=== PATIENT | female | born 1965 ===

== ENCOUNTER → 2020-04-22 14:57 | Outpatient (BNVA) | payer OTHER, SELFPAY | PROVIDERS: Visit Provider Obstetrics & Gynecology | DX: Z76.89 Persons encountering health services in other specified circumstances (principal) ==

== ENCOUNTER 2020-06-15 16:10 | Outpatient (REF) | payer OTHER, SELFPAY ==
--- NOTE | 2020-06-15 | MM_ITS ---
EXAMINATION: MM SCREENING DIGITAL BREAST TOMOSYNTHESIS, BILATERAL CLINICAL INFORMATION: Screening. Asymptomatic. The lifetime risk of breast cancer based on the Tyrer-Cuzick Model is 7%. COMPARISON: Mammography: 02/05/2019, 03/16/2017, 03/10/2017 TECHNIQUE: Digital mammography is performed in craniocaudal and mediolateral oblique views along with computer-aided detection (CAD). Digital breast tomosynthesis is performed in implant-displaced craniocaudal and implant-displaced mediolateral oblique views along with computer-aided detection (CAD). Synthesized 2D images are generated from the tomosynthesis. Additional implant displaced left MLO view is provided. FINDINGS: There are scattered areas of fibroglandular density (ACR BI-RADS breast composition Category b). Breast tissue composition borders on predominantly fatty. The implant contours are smooth and similar to prior studies. There are no significant masses, abnormal calcifications, or other abnormalities. No significant changes. MM/MM tomosynthesis screening BI IMPRESSION: No mammographic evidence of malignancy. ASSESSMENT: BI-RADS 1: Negative RECOMMENDATION: Routine annual mammography screening. This patient's information was entered into a reminder system with a target due date for their next mammogram.
== END 2020-06-15 16:11 | disposition home or self-care (01) ==
LOC: HO.MAMMO 16:10
DX: Z12.31 Encounter for screening mammogram for malignant neoplasm of breast (principal)
CPT/HCPCS: 77063; 77067

== ENCOUNTER → 2020-07-20 15:28 | Outpatient (BNVA) | payer OTHER, SELFPAY | PROVIDERS: Visit Provider Advanced Practice Midwife ==

== ENCOUNTER 2020-09-09 14:12 | Emergency (ER) | payer OTHER, SELFPAY ==
--- NOTE | 2020-09-09 | ECG_ITS ---
Test Reason : HYPERTENSION Blood Pressure : / mmHG Vent. Rate : 090 BPM Atrial Rate : 090 BPM P-R Int : 170 ms QRS Dur : 064 ms QT Int : 352 ms P-R-T Axes : -08 -10 -09 degrees QTc Int : 430 ms Poor data quality Normal sinus rhythm Normal ECG When compared with ECG of 27-AUG-2017 09:55, Poor data quality in current ECG precludes serial comparison Referred By: Generic ED Physician Electronically Signed By:SUZY YOUNG MD
--- NOTE | ~2020-09-09 | XR_ITS ---
EXAMINATION: XR CHEST CLINICAL INFORMATION: Shortness of breath. COMPARISON: 10/28/2019 chest radiographs. TECHNIQUE: 2 views of the chest were obtained. FINDINGS: No significant abnormality is noted involving the heart, lungs, mediastinum, bony thorax or soft tissues. XR/XR chest 2V IMPRESSION: No acute cardiopulmonary process.
[2020-09-09 14:49] VITALS: BP 150/86; PULSE 100; RESP 18; TEMP 36.5; O2SAT 96; BMI 34.2
[2020-09-09 20:20] VITALS: BP 174/70; PULSE 81; RESP 18; TEMP 36.6; O2SAT 99
--- NOTE | 2020-09-09 21:16 | ED.GENADULT ---
HPI - General Adult General Chief complaint: General Medical Stated complaint: HYPERTENSION Time Seen by Provider: 09/09/20 21:15 Source: patient Mode of arrival: ambulatory Limitations: no limitations History of Present Illness HPI narrative: This is a 55-year-old female with fibromyalgia, hypertension and dyslipidemia was blood pressure medications were recently changed from lisinopril to amlodipine. Apparently, patient had developed a cough while on lisinopril. Today she states she has a headache and has had it for 3 days. Patient states she did seek with her PCP who sent her to the ED that her PCP was going to increase the amlodipine to from 5 mg to 10 mg and call in prescriptions for her. Patient states she has dizziness and shortness of breath but denies cough, chest pain, fevers, nausea, vomiting, diarrhea. Patient states she feels a little short of breath but she also has some increased anxiety due to some stuff going on at work. Patient states she did receive her 1st COVID vaccination this afternoon. MD complaint: elevated BP w/LEONARD Related Data Home Medications Medication Instructions Recorded Confirmed bupropion HCl (smoking deter) 150 150 mg PO BID 04/22/20 08/26/20 mg tablet,12 hr sustained-release(smoking deterrent) furosemide 20 mg tablet 20 mg PO DAILY 04/22/20 08/26/20 ibuprofen 600 mg tablet 600 mg PO BID 04/22/20 08/26/20 lorazepam 0.5 mg tablet 0.5 mg PO BID PRN 04/22/20 08/26/20 omeprazole 20 mg capsule,delayed 20 mg PO BID 04/22/20 08/26/20 release tramadol 50 mg tablet 50 mg PO Q6H PRN 04/22/20 08/26/20 zolpidem 5 mg tablet 5 mg PO BEDTIME PRN 08/26/20 08/26/20 Previous Rx's Medication Instructions Recorded clotrimazole-betamethasone 1 1 appl TOPICAL BID #45 g 07/20/20 %-0.05 % topical cream amlodipine 2.5 mg tablet 2.5 mg PO DAILY 30 Days #30 tab 08/26/20 atorvastatin 20 mg tablet 20 mg PO DAILY 90 Days #90 tab 09/03/20 amlodipine 10 mg tablet 10 mg PO DAILY 10 Days #10 tab 09/09/20 Allergies Allergy/AdvReac Type Severity Reaction Status Date / Time No Known Allergies Allergy Verified 08/26/20 10:53 Review of Systems Review of Systems: Yes all other systems are reviewed and are negative [facility] Past Medical History Medical History Anxiety Dyslipidemia Fibromyalgia GERD (gastroesophageal reflux disease) HTN (hypertension) Insomnia Surgical History History of bilateral tubal ligation History of breast implant History of hysterectomy History of lumpectomy of right breast Hx of abdominoplasty Family History Family History Mother Breast cancer Alzheimer's disease Family/Other Breast cancer Social History Social History Alcohol intake: current Alcohol intake frequency: a few times a month Alcohol type: other Smoking Status: Former smoker Advance Directives: No Sexual orientation: Straight/Heterosexual Gender identity: female Physical Exam Vital Signs: Vital Signs: Last Vital Signs Temp 98.4 F 09/09/20 22:45 Pulse 81 09/09/20 23:39 Resp 16 09/09/20 23:39 BP 105/57 L 09/09/20 23:39 Pulse Ox 98 09/09/20 23:39 Body Mass Index 34.2 Const: General: cooperative, healthy appearing, comfortable and no acute distress Nutritional Appearance: average body habitus Orientation/consciousness: patient oriented x3 HENMT: Head: Yes normal to inspection and Yes normocephalic Ears: hearing grossly normal bilaterally, external ears normal and TM's normal bilaterally Eyes: General: appearance normal, both eyes and all related structures Neck: Neck: Yes normal visual inspection and Yes full ROM Resp: Effort & Inspection: normal respiratory effort Auscultation: clear to auscultation bilaterally Cardio: Rate: regular rate Skin: General skin exam: no rashes or lesions noted Neuro: General: patient oriented x3 Extrem: General: Yes normal to inspection, Yes no pedal edema and Yes normal gait Course Course Course Narrative: This is a 55-year-old female with fibromyalgia, hypertension and dyslipidemia was blood pressure medications were recently changed from lisinopril to amlodipine. Apparently, patient had developed a cough while on lisinopril. Today she states she has a headache and has had it for 3 days. Will get labs, troponin, EKG and give patient Tylenol and bring down blood pressure to a safer level, gently. Likely discharge as long as all labs are WNL. Will get a chest x-ray as patient endorses shortness of breath though she does admit this could be due to anxiety. Blood pressure improving, systolic in the 120s to 130s. Elevated blood pressure is likely related to patient's anxiety and needing a med adjustment as patient's blood pressure improved almost immediately when the nurse was in the room w/the medication. Patient is still endorsing headache, will give migraine cocktail and reassess in a little while. Likely discharge home. 12:27am patient reports feeling better, dizziness has resolved, headache has resolved, BP WNL, will discharge patient home. Medical Decision Making Lab Data Result diagrams: 09/09/20 22:14 09/09/20 22:14 Labs: Lab Results 09/09/20 09/09/20 09/09/20 Range/Units 22:14 22:14 22:14 WBC 10.1 (4.8-10.8) X10*3/uL RBC 4.24 (4.20-5.50) X10*6/uL Hgb 13.2 (12.0-16.0) g/dl Hct 39.4 (37-47) % MCV 92.9 (80-98) fL MCH 31.1 (27.0-33.0) pg MCHC 33.5 (31.0-35.0) g/dl RDW 11.9 (11.0-16.0) % Plt Count 282 (160-400) X10*3/uL MPV 10.8 (9.4-12.3) fL Immature Gran % (Auto) 0.1 (0.0-0.4) % Neut % (Auto) 51.9 (45-73) % Lymph % (Auto) 39.9 (20-40) % [place] % (Auto) 7.1 (2-11) % Eos % (Auto) 0.8 (0-4) % Baso % (Auto) 0.2 (0-2) % Lymph # (Auto) 4.0 (1.2-4.9) X10*3/uL [place] # (Auto) 0.7 (0.1-1.2) X10*3/uL Eos # (Auto) 0.1 (0.0-0.4) X10*3/uL Baso # (Auto) 0.0 (0.0-0.2) X10*3/uL Abs Immat Gran (auto) 0.01 (0.00-0.03) X10*3/uL Absolute Neuts (auto) 5.2 (2.0-8.3) X10*3/uL Absolute Nucleated RBC 0.000 (0.0-0.012) X10*3/uL Nucleated RBC % (auto) 0.0 (0.0-0.2) /100WBC Sodium 141 (135-145) mmol/L Potassium 4.2 (3.3-5.1) mmol/L Chloride 105 (96-108) mmol/L Carbon Dioxide 24 (22-29) mmol/L Anion Gap 16 (12-20) BUN 16 (9-16) mg/dL Creatinine 0.76 (0.5-1.4) mg/dL Estim Creat Clear Calc 83.5 Estimated GFR > 60 Random Glucose 92 (60-115) mg/dL Calcium 9.1 (8.4-10.2) mg/dL Troponin I High Sens < 3.5 (<3.5-17.0) ng/L Discharge Plan Discharge Clinical Impression: Elevated blood pressure reading with diagnosis of hypertension Patient Disposition: Home, Self-Care Instructions: Hypertension (ED) Additional Instructions: Please be sure to start taking her new dose of 10 mg amlodipine that your PCP prescribed to you daily starting tomorrow. Please also watch her salt intake as increased salt intake can lead to increased blood pressure. If your headache or dizziness returns and you cannot control it with Motrin and ibuprofen, please seek medical attention. Prescriptions: No Action atorvastatin 20 mg tablet 20 mg PO DAILY 90 Days Qty: 90 RF: 3 amlodipine 10 mg tablet 10 mg PO DAILY 10 Days Qty: 10 RF: 0 zolpidem 5 mg tablet 5 mg PO BEDTIME PRNRF: 0 amlodipine 2.5 mg tablet 2.5 mg PO DAILY 30 Days Qty: 30 RF: 3 clotrimazole-betamethasone 1-0.05 % cream 1 appl topical BID Qty: 45 RF: 0 tramadol 50 mg tablet 50 mg PO Q6H PRNRF: 0 ibuprofen 600 mg tablet 600 mg PO BID RF: 0 omeprazole 20 mg capsule,delayed release(DR/EC) 20 mg PO BID RF: 0 lorazepam 0.5 mg tablet 0.5 mg PO BID PRNRF: 0 bupropion HCl (smoking deter) 150 mg tablet extended release 12 hr 150 mg PO BID RF: 0 furosemide 20 mg tablet 20 mg PO DAILY RF: 0
[2020-09-09] MEDS: Acetaminophen 325 MG TABLET 650 MG PO (22:14)
[2020-09-09 22:15] VITALS: BP 174/70; PULSE 83
[2020-09-09] MEDS: hydrALAZINE HCl 20 MG/ML VIAL 5 MG IVPUSH (22:15)
[2020-09-09 22:23] LABS: MANUAL DIFF FLAG NO
[2020-09-09 22:32] LABS: Basophils Percent Auto 0.2 % (0-2); Eosinophils Absolute Auto 0.1 X10*3/uL (0.0-0.4); Eosinophils Percent Auto 0.8 % (0-4); Hematocrit 39.4 % (37-47); Hemoglobin 13.2 g/dl (12.0-16.0); Imm Gran Abs Auto 0.01 X10*3/uL (0.00-0.03); Imm Gran Pct Auto 0.1 % (0.0-0.4); Lymphocytes Percent Auto 39.9 % (20-40); Mean Corpuscular HGB Conc 33.5 g/dl (31.0-35.0); Mean Corpuscular Hemoglobin 31.1 pg (27.0-33.0); Mean Corpuscular Volume 92.9 fL (80-98); Mean Platelet Volume 10.8 fL (9.4-12.3); Monocytes Absolute Auto 0.7 X10*3/uL (0.1-1.2); Monocytes Percent Auto 7.1 % (2-11); Neutrophils Absolute Auto 5.2 X10*3/uL (2.0-8.3); Neutrophils Percent Auto 51.9 % (45-73); Platelet Count 282 X10*3/uL (160-400); Red Blood Count 4.24 X10*6/uL (4.20-5.50); Red Cell Distribution Width 11.9 % (11.0-16.0); White Blood Count 10.1 X10*3/uL (4.8-10.8)
[2020-09-09 22:45] VITALS: BP 119/58; PULSE 81; RESP 12; TEMP 36.9; O2SAT 98
[2020-09-09 22:51] LABS: Anion Gap 16 (12-20); Blood Urea Nitrogen 16 mg/dL (9-16); Calcium 9.1 mg/dL (8.4-10.2); Carbon Dioxide 24 mmol/L (22-29); Chloride 105 mmol/L (96-108); Creatinine Clr Calc Pharmacy 83.5; Estimated Glomerular Filt Rate > 60; Glucose Random 92 mg/dL (60-115); Potassium 4.2 mmol/L (3.3-5.1); Sodium 141 mmol/L (135-145)
[2020-09-09 22:54] LABS: Troponin-I High Sensitivity < 3.5 ng/L (<3.5-17.0)
[2020-09-09] MEDS: Metoclopramide HCl 10 MG/2 ML VIAL IVPUSH (23:07)
[2020-09-09] MEDS: Ketorolac Tromethamine 30 MG/ML VIAL IVPUSH (23:07)
[2020-09-09] MEDS: diphenhydrAMINE HCL 50 MG/ML VIAL 25 MG IVPUSH (23:07)
[2020-09-09 23:39] VITALS: BP 105/57; PULSE 81; RESP 16; O2SAT 98
[2020-09-09] MEDS: Meclizine HCl 25 MG TABLET PO (23:41)
== END 2020-09-10 01:15 | disposition home or self-care (01) ==
PROVIDERS: Physician Assistant; Emergency Provider Internal Medicine; PCP Internal Medicine
DX: R51.9 Headache, unspecified (principal); I10 Essential (primary) hypertension; Z79.899 Other long term (current) drug therapy
CPT/HCPCS: 36415; 71046; 80048; 84484; 85025; 93005; 96374; 96375; 99284; J1200; J1885; J2765

== ENCOUNTER 2020-10-20 11:25 | Outpatient (REF) | payer OTHER, SELFPAY ==
--- NOTE | ~2020-10-20 | US_ITS ---
EXAMINATION: US VENOUS ULTRASOUND WITH DOPPLER LOWER EXTREMITY, LEFT CLINICAL INFORMATION: Left lower extremity pain. Assess for occult DVT COMPARISON: Left lower extremity venous ultrasound with Doppler 10/19/2015 TECHNIQUE: Ultrasound of the deep veins is performed from the hip to the calf with compression sonography and color and pulse Doppler assessment. Spectral analysis with color-flow imaging is performed. FINDINGS: There is normal venous compression and respiratory variation and augmented flow. The visualized common femoral vein, superficial femoral vein, profunda femoral vein, popliteal vein, and the trifurcation region shows no evidence of deep venous thrombosis. There is no significant popliteal fossa cyst. US/US venous duplex LE LT IMPRESSION: No DVT demonstrated in the left lower extremity.
== END 2020-10-20 11:26 | disposition home or self-care (01) ==
LOC: HO.US 11:25
PROVIDERS: PCP Internal Medicine; Visit Provider Internal Medicine
DX: M79.662 Pain in left lower leg (principal); M79.89 Other specified soft tissue disorders
CPT/HCPCS: 93971

== ENCOUNTER 2020-10-23 23:40 | Emergency (ER) | payer OTHER, SELFPAY ==
[2020-10-23 23:55] VITALS: BP 138/74; PULSE 88; RESP 18; TEMP 36.8; O2SAT 98; BMI 34.9
[2020-10-24] VITALS: BP 138/74; PULSE 88; RESP 18; TEMP 36.8; O2SAT 98
--- NOTE | 2020-10-24 | ECG_ITS ---
Test Reason : chest pain Blood Pressure : / mmHG Vent. Rate : 092 BPM Atrial Rate : 092 BPM P-R Int : 218 ms QRS Dur : 074 ms QT Int : 346 ms P-R-T Axes : 032 009 041 degrees QTc Int : 427 ms Sinus rhythm with 1st degree A-V block Otherwise normal ECG When compared with ECG of 09-SEP-2020 14:57, [place] interval has increased Nonspecific T wave abnormality has replaced inverted T waves in Inferior leads Referred By: Generic ED Physician Electronically Signed By:SUZY YOUNG MD
[2020-10-24 00:09] VITALS: PULSE 120
[2020-10-24 00:28] LABS: Glucose Urine UA NEG (NEG); Leukocyte Esterase Urine NEG (NEG); Nitrite Urine NEG (NEG); PH 5.5 (5.0-8.0); Specific Gravity - Urine >= 1.030 (1.005-1.025); Urine Blood 3+ (NEG); Urine Ketones NEG (NEG); Urine Protein NEG (NEG-TRACE)
[2020-10-24 00:34] LABS: Appearance Urine CLEAR; Color Urine YELLOW
[2020-10-24 00:46] LABS: Bacteria Urine TRACE /LPF; Mucus Urine TRACE /LPF; Squamous Epithelial Cell Urine 1+ /LPF
--- NOTE | 2020-10-24 01:02 | ED_ITS ---
HPI - Chest Pain General Chief Complaint: Chest Pain Stated Complaint: Weakness Time Seen by Provider: 10/23/20 23:54 Source: patient Mode of arrival: ambulatory History of Present Illness HPI narrative: 55-year-old female with complaints left-sided chest discomfort primarily in her left shoulder with occasional numbness/tingling into the distal extremity. Otherwise, she denies any fever, chills, GI symptoms, symptoms. She states that she recently was evaluated for lower extremity edema with a negative venous duplex. Related Data Home Medications Medication Instructions Recorded Confirmed bupropion HCl (smoking deter) 150 150 mg PO BID 04/22/20 10/20/20 mg tablet,12 hr sustained-release(smoking deterrent) furosemide 20 mg tablet 20 mg PO DAILY 04/22/20 10/20/20 ibuprofen 600 mg tablet 600 mg PO BID 04/22/20 10/20/20 omeprazole 20 mg capsule,delayed 20 mg PO BID 04/22/20 10/20/20 release tramadol 50 mg tablet 50 mg PO Q6H PRN 04/22/20 08/26/20 zolpidem 5 mg tablet 5 mg PO BEDTIME PRN 08/26/20 10/20/20 Previous Rx's Medication Instructions Recorded clotrimazole-betamethasone 1 1 appl TOPICAL BID #45 g 07/20/20 %-0.05 % topical cream atorvastatin 20 mg tablet 20 mg PO DAILY 90 Days #90 tab 09/03/20 losartan 25 mg tablet 25 mg PO DAILY 90 Days #90 tab 09/13/20 sumatriptan succinate 50 mg tablet 50 mg PO Q2-4H PRN 30 Days #9 tab 09/13/20 amlodipine 10 mg tablet 10 mg PO DAILY #10 tab 09/26/20 lorazepam 0.5 mg tablet 0.5 mg PO BID PRN 30 Days #60 tab 10/07/20 Allergies Allergy/AdvReac Type Severity Reaction Status Date / Time No Known Allergies Allergy Verified 08/26/20 10:53 Review of Systems Review of Systems: Pertinent positives and negatives as stated in HPI 10 point review of systems is otherwise negative. PMFSH Past Medical History Source: nursing notes reviewed Medical History Anxiety Dyslipidemia Fibromyalgia GERD (gastroesophageal reflux disease) Hospital discharge follow-up HTN (hypertension) Insomnia Pain and swelling of left lower leg Surgical History History of bilateral tubal ligation History of breast implant History of hysterectomy History of lumpectomy of right breast Hx of abdominoplasty Family History Family History Mother Breast cancer Alzheimer's disease Family/Other Breast cancer Social History Social History Alcohol intake: never Smoking Status: Never smoker Advance Directives: No Sexual orientation: Straight/Heterosexual Gender identity: female Physical Exam Vital Signs: Vital Signs: Last Vital Signs Temp 98.2 F 10/24/20 00:00 Pulse 88 10/24/20 00:00 Resp 18 10/24/20 00:00 BP 138/74 10/24/20 00:00 Pulse Ox 98 10/24/20 00:00 Body Mass Index 34.9 VITAL SIGNS: Reviewed. GENERAL: Well developed, well nourished, in no acute distress. HEAD: Normocephalic/atraumatic, EYES: PERRLA, EOMI OROPHARYNX: no oral lesions noted, posterior pharynx clear NECK: Supple, no adenopathy LUNGS: Normal breath sounds. No adventitious sounds or accessory muscle use. SpO2<98> CARDIOVASCULAR: Regular rate and rhythm without noted murmurs ABDOMEN: Soft, non-tender, non-distended with bowel sounds. Left upper extremity: Neurovascularly intact, capillary refill less than 3 seconds, no deformity noted at the shoulder and there is full range of motion at the shoulder, elbow, wrist EXTREMITIES: No edema. NEUROLOGIC: Alert and oriented x 4. Strength and sensation to light touch were grossly intact x 4. Course Course Course Narrative: 55-year-old female with history and clinical presentation most consistent with musculoskeletal complaints in etiology, however will rule out cardiopulmonary etiologies. On review of all investigations there are no acute findings to suggest pneumonia, cardiac ischemia, or infectious etiology. All results and findings were discussed with patient at bedside and she was discharged home in stable condition. MDM - Chest Pain Lab Data Result diagrams: 10/24/20 01:54 10/24/20 01:54 Labs: Lab Results 10/24/20 10/24/20 10/24/20 Range/Units 00:20 01:54 01:54 WBC 8.9 (4.8-10.8) X10*3/uL RBC 3.79 L (4.20-5.50) X10*6/uL Hgb 11.9 L (12.0-16.0) g/dl Hct 36.0 L (37-47) % MCV 95.0 (80-98) fL MCH 31.4 (27.0-33.0) pg MCHC 33.1 (31.0-35.0) g/dl RDW 12.3 (11.0-16.0) % Plt Count 282 (160-400) X10*3/uL MPV 10.3 (9.4-12.3) fL Immature Gran % (Auto) 0.2 (0.0-0.4) % Neut % (Auto) 48.6 (45-73) % Lymph % (Auto) 40.8 H (20-40) % [place] % (Auto) 7.9 (2-11) % Eos % (Auto) 2.2 (0-4) % Baso % (Auto) 0.3 (0-2) % Lymph # (Auto) 3.7 (1.2-4.9) X10*3/uL [place] # (Auto) 0.7 (0.1-1.2) X10*3/uL Eos # (Auto) 0.2 (0.0-0.4) X10*3/uL Baso # (Auto) 0.0 (0.0-0.2) X10*3/uL Abs Immat Gran (auto) 0.02 (0.00-0.03) X10*3/uL Absolute Neuts (auto) 4.3 (2.0-8.3) X10*3/uL Absolute Nucleated RBC 0.000 (0.0-0.012) X10*3/uL Nucleated RBC % (auto) 0.0 (0.0-0.2) /100WBC Hold Blue Top Sodium 143 (135-145) mmol/L Potassium 3.9 (3.3-5.1) mmol/L Chloride 106 (96-108) mmol/L Carbon Dioxide 28 (22-29) mmol/L Anion Gap 13 (12-20) BUN 20 H (9-16) mg/dL Creatinine 0.80 (0.5-1.4) mg/dL Estim Creat Clear Calc 80.2 Estimated GFR > 60 Random Glucose 118 H (60-115) mg/dL Calcium 9.4 (8.4-10.2) mg/dL Total Bilirubin 0.3 (0.0-1.0) mg/dL AST 14 (5-31) U/L ALT 18 (0-31) U/L Alkaline Phosphatase 101 (39-117) U/L Troponin I High Sens (<3.5-17.0) ng/L Total Protein 6.5 (6.5-8.0) g/dL Albumin 4.1 (3.5-5.0) g/dL Urine Color YELLOW Urine Appearance CLEAR Urine pH 5.5 (5.0-8.0) Ur Specific [place] >= 1.030 H (1.005-1.025) Urine Protein NEG (NEG-TRACE) MG/DL Urine Glucose (UA) NEG (NEG) MG/DL Urine Ketones NEG (NEG) MG/DL Urine Blood 3+ H (NEG) Urine Nitrite NEG (NEG) Ur Leukocyte Esterase NEG (NEG) Urine RBC 5-9 H (0) /HPF Urine WBC 1-4 (0-4) /HPF Ur Squamous Epith Cells 1+ /LPF Urine Bacteria TRACE /LPF Urine Mucus TRACE /LPF 10/24/20 10/24/20 Range/Units 01:54 01:54 WBC (4.8-10.8) X10*3/uL RBC (4.20-5.50) X10*6/uL Hgb (12.0-16.0) g/dl Hct (37-47) % MCV (80-98) fL MCH (27.0-33.0) pg MCHC (31.0-35.0) g/dl RDW (11.0-16.0) % Plt Count (160-400) X10*3/uL MPV (9.4-12.3) fL Immature Gran % (Auto) (0.0-0.4) % Neut % (Auto) (45-73) % Lymph % (Auto) (20-40) % [place] % (Auto) (2-11) % Eos % (Auto) (0-4) % Baso % (Auto) (0-2) % Lymph # (Auto) (1.2-4.9) X10*3/uL [place] # (Auto) (0.1-1.2) X10*3/uL Eos # (Auto) (0.0-0.4) X10*3/uL Baso # (Auto) (0.0-0.2) X10*3/uL Abs Immat Gran (auto) (0.00-0.03) X10*3/uL Absolute Neuts (auto) (2.0-8.3) X10*3/uL Absolute Nucleated RBC (0.0-0.012) X10*3/uL Nucleated RBC % (auto) (0.0-0.2) /100WBC Hold Blue Top SEE NOTE Sodium (135-145) mmol/L Potassium (3.3-5.1) mmol/L Chloride (96-108) mmol/L Carbon Dioxide (22-29) mmol/L Anion Gap (12-20) BUN (9-16) mg/dL Creatinine (0.5-1.4) mg/dL Estim Creat Clear Calc Estimated GFR Random Glucose (60-115) mg/dL Calcium (8.4-10.2) mg/dL Total Bilirubin (0.0-1.0) mg/dL AST (5-31) U/L ALT (0-31) U/L Alkaline Phosphatase (39-117) U/L Troponin I High Sens < 3.5 (<3.5-17.0) ng/L Total Protein (6.5-8.0) g/dL Albumin (3.5-5.0) g/dL Urine Color Urine Appearance Urine pH (5.0-8.0) Ur Specific [place] (1.005-1.025) Urine Protein (NEG-TRACE) MG/DL Urine Glucose (UA) (NEG) MG/DL Urine Ketones (NEG) MG/DL Urine Blood (NEG) Urine Nitrite (NEG) Ur Leukocyte Esterase (NEG) Urine RBC (0) /HPF Urine WBC (0-4) /HPF Ur Squamous Epith Cells /LPF Urine Bacteria /LPF Urine Mucus /LPF Discharge Plan Discharge Clinical Impression: Left shoulder pain Patient Disposition: Home, Self-Care Instructions: Shoulder Pain (ED) Additional Instructions: Resume all home medications as prescribed. Utilize [id number] Tylenol/ibuprofen as needed for left shoulder discomfort and follow-up with your primary care provider for re-evaluation and possible referral for physical therapy. Return to the emergency department if you develop any acute worsening of your symptoms. Prescriptions: No Action atorvastatin 20 mg tablet 20 mg PO DAILY 90 Days Qty: 90 RF: 3 losartan 25 mg tablet 25 mg PO DAILY 90 Days Qty: 90 RF: 0 sumatriptan succinate 50 mg tablet 50 mg PO Q2-4H PRN (Reason: migraine headache) 30 Days Qty: 9 RF: 0 amlodipine 10 mg tablet 10 mg PO DAILY Qty: 10 RF: 6 lorazepam 0.5 mg tablet 0.5 mg PO BID PRN (Reason: anxiety) 30 Days Qty: 60 RF: 0 zolpidem 5 mg tablet 5 mg PO BEDTIME PRNRF: 0 clotrimazole-betamethasone 1-0.05 % cream 1 appl topical BID Qty: 45 RF: 0 tramadol 50 mg tablet 50 mg PO Q6H PRNRF: 0 ibuprofen 600 mg tablet 600 mg PO BID RF: 0 omeprazole 20 mg capsule,delayed release(DR/EC) 20 mg PO BID RF: 0 bupropion HCl (smoking deter) 150 mg tablet extended release 12 hr 150 mg PO BID RF: 0 furosemide 20 mg tablet 20 mg PO DAILY RF: 0 Referrals: Itzel Coles MD [Primary Care Provider] - 2 days
[2020-10-24 02:00] LABS: MANUAL DIFF FLAG NO
[2020-10-24 02:02] LABS: Basophils Percent Auto 0.3 % (0-2); Eosinophils Absolute Auto 0.2 X10*3/uL (0.0-0.4); Eosinophils Percent Auto 2.2 % (0-4); Hemoglobin 11.9 g/dl (12.0-16.0); Imm Gran Abs Auto 0.02 X10*3/uL (0.00-0.03); Imm Gran Pct Auto 0.2 % (0.0-0.4); Lymphocytes Absolute Auto 3.7 X10*3/uL (1.2-4.9); Lymphocytes Percent Auto 40.8 % (20-40); Mean Corpuscular HGB Conc 33.1 g/dl (31.0-35.0); Mean Corpuscular Hemoglobin 31.4 pg (27.0-33.0); Mean Platelet Volume 10.3 fL (9.4-12.3); Monocytes Absolute Auto 0.7 X10*3/uL (0.1-1.2); Monocytes Percent Auto 7.9 % (2-11); Neutrophils Absolute Auto 4.3 X10*3/uL (2.0-8.3); Neutrophils Percent Auto 48.6 % (45-73); Platelet Count 282 X10*3/uL (160-400); Red Blood Count 3.79 X10*6/uL (4.20-5.50); Red Cell Distribution Width 12.3 % (11.0-16.0); White Blood Count 8.9 X10*3/uL (4.8-10.8)
[2020-10-24 02:33] LABS: Alanine Aminotransferase 18 U/L (0-31); Albumin Level 4.1 g/dL (3.5-5.0); Alkaline Phosphatase 101 U/L (39-117); Anion Gap 13 (12-20); Aspartate Amino Transferase 14 U/L (5-31); Bilirubin Total 0.3 mg/dL (0.0-1.0); Blood Urea Nitrogen 20 mg/dL (9-16); Calcium 9.4 mg/dL (8.4-10.2); Carbon Dioxide 28 mmol/L (22-29); Chloride 106 mmol/L (96-108); Creatinine Clr Calc Pharmacy 80.2; Estimated Glomerular Filt Rate > 60; Glucose Random 118 mg/dL (60-115); Potassium 3.9 mmol/L (3.3-5.1); Sodium 143 mmol/L (135-145); Total Protein 6.5 g/dL (6.5-8.0)
[2020-10-24 02:36] LABS: Troponin-I High Sensitivity < 3.5 ng/L (<3.5-17.0)
== END 2020-10-24 03:04 | disposition home or self-care (01) ==
PROVIDERS: Emergency Provider Student in an Organized Health Care Education/Training Program; PCP Internal Medicine
DX: M25.512 Pain in left shoulder (principal); R07.9 Chest pain, unspecified; I10 Essential (primary) hypertension; E78.5 Hyperlipidemia, unspecified; Z79.02 Long term (current) use of antithrombotics/antiplatelets; Z79.899 Other long term (current) drug therapy
CPT/HCPCS: 36415; 80053; 81001; 84484; 85025; 93005; 99284

== ENCOUNTER 2020-11-22 12:22 | Outpatient (REF) | payer OTHER, SELFPAY ==
--- NOTE | ~2020-11-22 | XR_ITS ---
EXAMINATION: XR KNEE, LEFT CLINICAL INFORMATION: Left knee pain COMPARISON: There are no prior studies for comparison. TECHNIQUE: Three views of the left knee. FINDINGS: Mineralization is normal. There is no fracture or dislocation. There is moderate to severe joint space narrowing in the medial compartment of the knee with minimal associated arthritic change. There is mild degenerative arthritis in the patellofemoral compartment. There is no evidence of joint effusion. There are small rounded ossicles projected at the anterior intercondylar notch and posteriorly which could represent intra-articular loose bodies. XR/XR knee LT 3V IMPRESSION: Joint space narrowing in the medial compartment with arthritic change in the medial and patellofemoral compartments. Osseous intra-articular loose bodies cannot be excluded.
== END 2020-11-22 12:23 | disposition home or self-care (01) ==
LOC: HO.XRAY 12:22
PROVIDERS: PCP Internal Medicine; Visit Provider Internal Medicine
DX: M25.562 Pain in left knee (principal)
CPT/HCPCS: 73562

== ENCOUNTER 2020-12-10 09:36 | Outpatient (REF) | payer OTHER, SELFPAY ==
--- NOTE | ~2020-12-10 | CT_ITS ---
EXAMINATION: CT HEAD WITHOUT CONTRAST CLINICAL INFORMATION: Head injury. COMPARISON: None TECHNIQUE: Contiguous axial imaging was performed from the skull base to vertex without intravenous administration of contrast. This CT examination was performed using dose optimization techniques as appropriate, variously including the following: *Automated exposure control *Adjustment of mA and/or kV according to patient size (this includes techniques or standardized protocols for targeted exams where dose is matched to indication/reason for exam; i.e. extremities or head) *Use of iterative reconstruction technique DLP: 697 mGy-cm FINDINGS: There is no evidence of acute intracranial hemorrhage or territorial infarction. No abnormal mass effect or midline shift is seen. Reyes to white matter differentiation is well preserved. No extra-axial fluid collections are identified. The ventricles are normal in size. There is no abnormal attenuation within the brain parenchyma. The osseous structures and soft tissues are normal. The mastoid air cells and visualized portions of the paranasal sinuses are well aerated. CT/CT head/brain wo con IMPRESSION: No acute intracranial process seen.
== END 2020-12-10 09:37 | disposition home or self-care (01) ==
LOC: HO.CT 09:36
PROVIDERS: PCP Internal Medicine; Visit Provider Internal Medicine
DX: S09.90XA Unspecified injury of head, initial encounter (principal)
CPT/HCPCS: 70450

== ENCOUNTER 2021-01-15 08:16 | Outpatient (REF) | payer OTHER, SELFPAY ==
--- NOTE | ~2021-01-15 | XR_ITS ---
EXAMINATION: XR CHEST CLINICAL INFORMATION: Cough. COMPARISON: Chest radiograph dated 09/09/2020 TECHNIQUE: Two views of the chest were obtained. FINDINGS: The lungs are clear. The cardiomediastinal silhouette is normal in size. There is no pleural effusion or pneumothorax. No acute osseous abnormality. XR/XR chest 2V IMPRESSION: No acute cardiopulmonary findings.
[2021-01-15 10:23] LABS: Alanine Aminotransferase 20 U/L (0-31); Albumin Level 4.3 g/dL (3.5-5.0); Alkaline Phosphatase 80 U/L (39-117); Anion Gap 11 (12-20); Aspartate Amino Transferase 17 U/L (5-31); Bilirubin Total 0.4 mg/dL (0.0-1.0); Blood Urea Nitrogen 18 mg/dL (9-16); Calcium 9.6 mg/dL (8.4-10.2); Carbon Dioxide 26 mmol/L (22-29); Chloride 108 mmol/L (96-108); Cholesterol 205 mg/dL; Estimated Glomerular Filt Rate > 60; Glucose Fasting 109 mg/dL (60-99); HDL Cholesterol 57 mg/dL; LDL Cholesterol Calculated 125 mg/dl; Potassium 4.4 mmol/L (3.3-5.1); Sodium 141 mmol/L (135-145); Triglycerides 117 mg/dL
[2021-01-20 10:41] LABS: Vitamin D 25-OH, D2 <4 ng/mL; Vitamin D 25-OH, D3 18 ng/mL; Vitamin D 25-OH, Total 18 ng/mL (30-100)
== END 2021-01-15 08:17 | disposition home or self-care (01) ==
LOC: HO.XRAY 08:16
PROVIDERS: PCP Internal Medicine; Referring Provider Internal Medicine; Visit Provider Nurse Practitioner Family
DX: I10 Essential (primary) hypertension (principal); E78.5 Hyperlipidemia, unspecified; R05 Cough; E55.9 Vitamin D deficiency, unspecified
CPT/HCPCS: 36415; 71046; 80053; 80061; 82306

== ENCOUNTER 2021-05-03 07:16 | Outpatient (REF) | payer OTHER, SELFPAY | END 2021-05-03 07:17 | disposition home or self-care (01) | LOC: HO.HOSX 07:16 | PROVIDERS: Visit Provider Physician Assistant | DX: Z13.89 Encounter for screening for other disorder (principal) ==

== ENCOUNTER 2021-05-25 14:17 | Outpatient (REF) | payer OTHER, SELFPAY ==
[2021-05-25 15:38] LABS: C Reactive Protein 0.17 mg/dL (< or = 0.50); Rheumatoid Factor < 15.0 IU/mL (<15.0)
[2021-05-25 16:10] LABS: Erythrocyte Sedimentation Rate 10 MM/HR (0-20)
[2021-05-27 15:11] LABS: Cyclic Citrullinated Peptide <16 UNITS
== END 2021-05-25 14:18 | disposition home or self-care (01) ==
LOC: HO.LAB 14:17
PROVIDERS: PCP Internal Medicine; Visit Provider Nurse Practitioner Family
DX: M79.641 Pain in right hand (principal); M79.642 Pain in left hand; R20.0 Anesthesia of skin; R20.2 Paresthesia of skin
CPT/HCPCS: 36415; 82550; 85652; 86140; 86200; 86431

== ENCOUNTER 2021-07-09 07:57 | Outpatient (REF) | payer OTHER, SELFPAY ==
--- NOTE | ~2021-07-09 | MM_ITS ---
EXAMINATION: MM SCREENING DIGITAL BREAST TOMOSYNTHESIS, BILATERAL CLINICAL INFORMATION: Screening. Asymptomatic. Family history premenopausal breast cancer, mother (40s), cousin(40s). The lifetime risk of breast cancer based on the Tyrer-Cuzick Model is 15%. COMPARISON: Mammography: 06/15/2020, 02/05/2019, 03/16/2017, 03/10/2017 TECHNIQUE: Digital mammography is performed in craniocaudal and mediolateral oblique views along with computer-aided detection (CAD). Digital breast tomosynthesis is performed in implant-displaced craniocaudal and implant-displaced mediolateral oblique views along with computer-aided detection (CAD). Synthesized 2D images are generated from the tomosynthesis. FINDINGS: There are scattered areas of fibroglandular density (ACR BI-RADS breast composition Category b). There are no significant masses, abnormal calcifications, or other abnormalities. There are bilateral implants. The implant margins are smooth and similar to prior studies. MM/MM tomosynthesis screen imp BI IMPRESSION: No mammographic evidence of malignancy. ASSESSMENT: BI-RADS 1: Negative RECOMMENDATION: Routine annual mammography screening. This patient's information was entered into a reminder system with a target due date for their next mammogram.
== END 2021-07-09 07:58 | disposition home or self-care (01) ==
LOC: HO.MAMMO 07:57
PROVIDERS: PCP Internal Medicine; Visit Provider Internal Medicine
DX: Z12.31 Encounter for screening mammogram for malignant neoplasm of breast (principal)
CPT/HCPCS: 77063; 77067

== ENCOUNTER 2021-07-11 07:05 | Outpatient (REF) | payer OTHER, SELFPAY | END 2021-07-11 07:06 | disposition home or self-care (01) | LOC: HO.HOSX 07:05 | PROVIDERS: Visit Provider Physician Assistant | DX: Z13.89 Encounter for screening for other disorder (principal) ==

== ENCOUNTER → 2021-08-12 07:53 | Outpatient (REF) | payer OTHER, SELFPAY ==
--- NOTE | 2021-08-12 07:56 | CA_ITS ---
Acquisition Time: 2021-08-12 09:02:10 Total Exercise Time: 00:06:32 Test Indications: HTN Medications: SEE H Protocol: AKIN Max HR: 139 BPM 85% of Pred: 163 BPM Max BP: 148/060 mmHG Max Work Load: 7.8 METS Exercise stress test with exercise 6 min 32 sec of Akin protocol, with mild sob, no chest discomfort or palpitation, without arrythmia, with normotensive response to exercise, without EKG changes meeting criteria for ischemia. Test reviewed with Dr Pak. Referred By: Daphnie Guidry Overread By: BONIFACIO HOWARD
== END ==
LOC: HO.CARD 07:53
PROVIDERS: PCP Internal Medicine; Visit Provider Nurse Practitioner Family
DX: R00.2 Palpitations (principal); I10 Essential (primary) hypertension
CPT/HCPCS: 93017

== ENCOUNTER → 2021-08-30 11:14 | Outpatient (REF) | payer OTHER, SELFPAY ==
--- NOTE | 2021-08-30 11:20 | ECG_ITS ---
Test Reason : CP Blood Pressure : / mmHG Vent. Rate : 091 BPM Atrial Rate : 091 BPM P-R Int : 176 ms QRS Dur : 072 ms QT Int : 352 ms P-R-T Axes : 046 012 033 degrees QTc Int : 432 ms Normal sinus rhythm Normal ECG When compared with ECG of 24-OCT-2020 00:03, VT interval has decreased Referred By: Itzel Cade Electronically Signed By:Elkin Pak
== END ==
LOC: HO.CARD 11:14
PROVIDERS: PCP Internal Medicine; Visit Provider Internal Medicine
DX: R07.9 Chest pain, unspecified (principal)
CPT/HCPCS: 93005

== ENCOUNTER 2021-09-16 07:50 | Outpatient (REF) | payer OTHER, SELFPAY ==
[2021-09-16 08:42] LABS: Alanine Aminotransferase 23 U/L (0-31); Albumin Level 4.5 g/dL (3.5-5.0); Alkaline Phosphatase 94 U/L (39-117); Anion Gap 14 (12-20); Aspartate Amino Transferase 18 U/L (5-31); Bilirubin Total 0.4 mg/dL (0.0-1.0); Blood Urea Nitrogen 26 mg/dL (9-16); Calcium 9.7 mg/dL (8.4-10.2); Carbon Dioxide 25 mmol/L (22-29); Chloride 107 mmol/L (96-108); Cholesterol 199 mg/dL; Estimated Glomerular Filt Rate > 60; Glucose Fasting 105 mg/dL (60-99); HDL Cholesterol 58 mg/dL; LDL Cholesterol Calculated 109 mg/dl; Potassium 4.6 mmol/L (3.3-5.1); Sodium 141 mmol/L (135-145); Total Protein 7.2 g/dL (6.5-8.0); Triglycerides 163 mg/dL
[2021-09-22 20:31] LABS: Vitamin D 25-OH, D2 <4 ng/mL; Vitamin D 25-OH, D3 13 ng/mL; Vitamin D 25-OH, Total 13 ng/mL (30-100)
== END 2021-09-16 07:51 | disposition home or self-care (01) ==
LOC: HO.LAB 07:50
PROVIDERS: PCP Internal Medicine; Visit Provider Internal Medicine
DX: E55.9 Vitamin D deficiency, unspecified (principal); E78.5 Hyperlipidemia, unspecified; I10 Essential (primary) hypertension
CPT/HCPCS: 36415; 80053; 80061; 82306

== ENCOUNTER → 2021-09-23 16:06 | Outpatient (BNVA) | payer OTHER, SELFPAY | PROVIDERS: PCP Internal Medicine; Visit Provider Physician Assistant Surgical | DX: E66.9 Obesity, unspecified (principal); Z79.899 Other long term (current) drug therapy; Z71.3 Dietary counseling and surveillance ==

== ENCOUNTER 2021-10-06 08:22 | Outpatient (REF) | payer OTHER, SELFPAY ==
--- NOTE | ~2021-10-06 | US_ITS ---
EXAMINATION: US EXTREMITY NONVASCULAR CLINICAL INFORMATION: Lump on the lateral aspect of palm COMPARISON: None TECHNIQUE: Limited ultrasound imaging through the right palm is performed. FINDINGS: Imaging over the lump of the right lateral palm reveals a hypoechoic complex area in the subcutaneous fat measuring 0.7 x 0.9 x 0.4 cm. There is likely subcutaneous nodule representing a small fibroma or complex lipoma. It is not anechoic to suspect any cyst. It lies at the base of the distal 4th metacarpal US/US extremity nonvascular IMPRESSION: Small lesion along the palmar aspect overlying the distal 4th metacarpal likely a subcutaneous fibroma, or a lipoma. There is no communication to underlying joint or bone.
--- NOTE | ~2021-10-06 | XR_ITS ---
EXAMINATION: XR CHEST CLINICAL INFORMATION: Obesity, unspecified. COMPARISON: Chest done on 01/15/2021. TECHNIQUE: 2 views of the chest were obtained. FINDINGS: No significant abnormality is noted involving the heart, lungs, mediastinum, bony thorax or soft tissues. XR/XR chest 2V IMPRESSION: Unremarkable examination. No significant change since 01/15/2021.
[2021-10-06 08:52] LABS: MANUAL DIFF FLAG NO
[2021-10-06 09:02] LABS: Basophils Percent Auto 0.5 % (0-2); Eosinophils Absolute Auto 0.1 X10*3/uL (0.0-0.4); Eosinophils Percent Auto 0.9 % (0-4); Hematocrit 40.6 % (37.0-47.0); Hemoglobin 13.3 g/dl (12.0-16.0); Imm Gran Abs Auto 0.02 X10*3/uL (0.00-0.03); Imm Gran Pct Auto 0.3 % (0.0-0.4); Lymphocytes Absolute Auto 2.4 X10*3/uL (1.2-4.9); Lymphocytes Percent Auto 36.9 % (20-40); Mean Corpuscular HGB Conc 32.8 g/dl (31.0-35.0); Mean Corpuscular Hemoglobin 31.1 pg (27.0-33.0); Mean Corpuscular Volume 94.9 fL (80.0-98.0); Mean Platelet Volume 11.3 fL (9.4-12.3); Monocytes Absolute Auto 0.4 X10*3/uL (0.1-1.2); Monocytes Percent Auto 6.1 % (2-11); Neutrophils Absolute Auto 3.6 x10*3/uL (2.0-8.3); Neutrophils Percent Auto 55.3 % (45-73); Platelet Count 267 X10*3/uL (160-400); Red Blood Count 4.28 X10*6/uL (4.20-5.50); Red Cell Distribution Width 12.1 % (11.0-16.0); White Blood Count 6.6 X10*3/uL (4.8-10.8)
[2021-10-06 09:11] LABS: Estimated Average Glucose 108 mg/dL; Hemoglobin A1c % 5.4 %
[2021-10-06 09:31] LABS: Alanine Aminotransferase 21 U/L (0-31); Albumin Level 4.4 g/dL (3.5-5.0); Alkaline Phosphatase 79 U/L (39-117); Anion Gap 13 (12-20); Aspartate Amino Transferase 18 U/L (5-31); Bilirubin Total 0.6 mg/dL (0.0-1.0); Blood Urea Nitrogen 19 mg/dL (9-16); C Reactive Protein 0.24 mg/dL (< or = 0.50); Calcium 9.8 mg/dL (8.4-10.2); Carbon Dioxide 24 mmol/L (22-29); Chloride 106 mmol/L (96-108); Cholesterol 210 mg/dL; Estimated Glomerular Filt Rate > 60; Glucose Fasting 111 mg/dL (60-99); HDL Cholesterol 55 mg/dL; Iron 94 mcg/dL (30-160); LDL Cholesterol Calculated 133 mg/dl; Percent Iron Saturation 25 % (15-50); Potassium 4.4 mmol/L (3.3-5.1); Sodium 139 mmol/L (135-145); Total Iron Binding Capacity 376 mcg/dL (228-428); Triglycerides 114 mg/dL; Unsaturated Iron Binding 282 ug/dL
[2021-10-06 09:55] LABS: Ferritin 47 ng/mL (10-250); TSH reflex Free T4 1.04 uIU/mL (0.32-4.0)
[2021-10-06 10:03] LABS: Folate 10.7 ng/mL (> or = 4.0); Vitamin B12 651 pg/mL (200-900)
--- NOTE | 2021-10-06 14:23 | ECG_ITS ---
Test Reason : E66.9 Blood Pressure : / mmHG Vent. Rate : 081 BPM Atrial Rate : 081 BPM P-R Int : 184 ms QRS Dur : 068 ms QT Int : 348 ms P-R-T Axes : 050 003 022 degrees QTc Int : 404 ms Normal sinus rhythm Low voltage QRS Borderline ECG When compared with ECG of 30-AUG-2021 11:32, No significant change was found Referred By: Akbar Gaines Electronically Signed By:SUZY YOUNG MD
[2021-10-07 15:00] LABS: Calcium (PTHI) 9.8 mg/dL (8.6-10.4); PTHI 53 pg/mL (16-77)
[2021-10-10 04:41] LABS: Vitamin B1 15 nmol/L (8-30)
[2021-10-11 05:01] LABS: Zinc 81 mcg/dL (60-130)
[2021-10-13 00:31] LABS: Vitamin A 56 mcg/dL (38-98)
== END 2021-10-06 08:23 | disposition home or self-care (01) ==
LOC: HO.US 08:22
PROVIDERS: Physician Assistant Surgical; PCP Internal Medicine; Visit Provider Nurse Practitioner Family
DX: Z01.818 Encounter for other preprocedural examination (principal); R22.9 Localized swelling, mass and lump, unspecified; E66.9 Obesity, unspecified; E78.5 Hyperlipidemia, unspecified; M25.562 Pain in left knee
CPT/HCPCS: 36415; 71046; 76882; 80053; 80061; 82607; 82728; 82746; 83036; 83540; 83970; 84425; 84443; 84590; 84630; 85025; 86140; 93005

== ENCOUNTER → 2021-10-19 08:07 | Outpatient (BNVA) | payer OTHER, SELFPAY | PROVIDERS: PCP Internal Medicine; Visit Provider Surgery | DX: Z13.89 Encounter for screening for other disorder (principal) ==

== ENCOUNTER → 2021-10-25 16:11 | Outpatient (BNVA) | payer OTHER, SELFPAY | PROVIDERS: PCP Internal Medicine; Visit Provider Counselor Mental Health | DX: Z13.89 Encounter for screening for other disorder (principal) ==

== ENCOUNTER → 2021-10-28 08:11 | Outpatient (BNVA) | payer OTHER, SELFPAY | PROVIDERS: PCP Internal Medicine; Visit Provider Dietitian, Registered | DX: E66.9 Obesity, unspecified (principal); Z68.36 Body mass index [BMI] 36.0-36.9, adult | CPT/HCPCS: 97802 ==

== ENCOUNTER 2021-11-21 07:51 | Outpatient (REF) | payer OTHER, SELFPAY ==
[2021-11-22 11:19] LABS: H Pylori Breath Test Positive (Negative)
== END 2021-11-21 07:52 | disposition home or self-care (01) ==
LOC: CF 07:51
PROVIDERS: Physician Assistant Surgical; PCP Internal Medicine; Referring Provider Internal Medicine; Visit Provider Physician Assistant
DX: E66.9 Obesity, unspecified (principal)
CPT/HCPCS: 36415; 83013; 97803

== ENCOUNTER 2021-12-20 13:07 | Outpatient (REF) | payer OTHER, SELFPAY ==
[2021-12-20 13:55] LABS: Appearance Urine CLEAR; Color Urine STRAW; Glucose Urine UA NEG (NEG); Leukocyte Esterase Urine NEG (NEG); Nitrite Urine NEG (NEG); UACC Culture Trigger NO; Urine Blood 2+ (NEG); Urine Ketones NEG (NEG); Urine Protein NEG (NEG-TRACE)
[2021-12-20 14:12] LABS: RBC Urine 30-49 /HPF (0); Squamous Epithelial Cell Urine 3+ /LPF; WBC Urine 0 /HPF (0-4)
== END 2021-12-20 13:08 | disposition home or self-care (01) ==
LOC: HO.LAB 13:07
PROVIDERS: PCP Internal Medicine; Visit Provider Internal Medicine
DX: R30.0 Dysuria (principal)
CPT/HCPCS: 81001

== ENCOUNTER 2021-12-26 17:16 | Outpatient (REF) | payer OTHER, SELFPAY ==
[2021-12-28 16:04] LABS: H Pylori Breath Test Positive (Negative)
== END 2021-12-26 17:17 | disposition home or self-care (01) ==
LOC: HO.LNP 17:16
PROVIDERS: Visit Provider Physician Assistant
DX: Z01.818 Encounter for other preprocedural examination (principal)
CPT/HCPCS: 83013

== ENCOUNTER 2022-01-06 08:44 | Outpatient (REF) | payer OTHER, SELFPAY ==
--- NOTE | ~2022-01-06 | US_ITS ---
EXAMINATION: US COMPLETE ABDOMEN WITH LIVER ELASTOGRAPHY CLINICAL INFORMATION: Obesity. COMPARISON: None. TECHNIQUE: Real-time imaging of the abdominal viscera. Noninvasive ultrasound liver fibrosis assessment is performed using Nuvia ElastPQ point quantification shear wave elastography (2D-SWE) with a C5-2 MHz transducer. Multiple elastography samples are obtained. FINDINGS: PANCREAS: The visualized pancreatic head and body are normal in appearance. The remainder of the pancreas is obscured from visualization by the overlying bowel gas. ABDOMINAL AORTA: The proximal, middle, and distal aortic segments are normal in caliber. INFERIOR VENA CAVA: Visualized portions are normal. LIVER: The liver demonstrates normal size, contour and increased echogenicity. There is focal fatty sparing. No solid lesions seen. No intrahepatic biliary duct dilatation. The right lobe measures 15.2 cm in length. The left lobe measures 10.6 cm in length. Portal flow is hepatopetal, normal. Shear wave liver elastography median stiffness is 1.25 m/s (reference: normal median stiffness is 1.3 m/s or less). IQR/median stiffness to assess sampling precision is 0.06 (reference: good quality data set is IQR/median stiffness of 0.15 or less). GALLBLADDER: The gallbladder is physiologically distended without evidence of stones, sludge, polyps, wall thickening or pericholecystic fluid. COMMON BILE DUCT: Normal in caliber measuring 0.2 cm in diameter. RIGHT KIDNEY: Normal. No hydronephrosis. No renal calculi or focal parenchymal lesions. The kidney measures 10.6 cm in maximum dimension. LEFT KIDNEY: No hydronephrosis. No renal calculi or focal parenchymal lesions. The kidney measures 9.9 cm in maximum dimension. There are multiple echogenic foci. Question calcified vessels. SPLEEN: Normal. The spleen measures 9.8 cm in maximum dimension. FREE FLUID: None. US/US abdomen comp w elastography IMPRESSION: Hepatic steatosis with focal fatty sparing. Multiple small echogenic fat foci in the left kidney likely calcified vessels. LIVER ELASTOGRAPHY: Median liver stiffness 1.25 m/s correlates with high probability normal. REFERENCE: Society of Radiologists in Ultrasound Liver Stiffness Thresholds (2020): LIVER STIFFNESS THRESHOLDS: *Liver Stiffness equal or less than 1.3 m/s: High probability of being normal. *Liver Stiffness less than 1.7 m/s: In the absence of other known clinical signs, rules out compensated advanced chronic liver disease. *Liver Stiffness 1.7-2.1 m/s: Suggestive of compensated advanced chronic liver disease but need further test for confirmation. *Liver Stiffness over 2.1 m/s: Rules in compensated advanced chronic liver disease. *Liver Stiffness over 2.4 m/s: Suggestive of clinically significant portal hypertension. QUALITY OF DATA SET: *IQR/Median value equal or less than 0.15 implies a quality data set. *IQR/Median value over 0.15 implies a poor quality data set. SIGNIFICANT CHANGE FROM PRIOR EXAM: Significant change if liver stiffness measurement is 10% or greater from prior exam. OTHER CONSIDERATIONS: The stage of liver fibrosis may be overestimated in the setting of acute hepatitis, liver inflammation, elevated liver function tests, hepatic vascular congestion, obstructive cholestasis, non-fasting state, and infiltrative diseases such as amyloidosis and lymphoma. In some patients with NAFLD, the liver stiffness thresholds for compensated advanced chronic liver disease may be lower. In causes other than viral hepatitis and NAFLD, liver stiffness thresholds are not well established.
--- NOTE | ~2022-01-06 | FL_ITS ---
EXAMINATION: XR FLUOROSCOPY UPPER GI WITH AIR CLINICAL INFORMATION: Obesity COMPARISON: Previous CT March 2019 TECHNIQUE: Upper GI was performed using thin and thick barium and effervescent granules. FINDINGS: There is a sliding-type hiatal hernia. There is mild gastroesophageal reflux. There is mild fold thickening of the proximal stomach. There is a small outpouching of the contrast from the proximal posterior stomach seen on lateral imaging. When compared with previous CT this probably corresponds to a small posterior diverticulum as opposed to ulcer. Stomach and duodenum are otherwise normal-appearing. FLUOROSCOPY TIME: 0.7 minutes DOSE AREA PRODUCT: 10 ruiz per centimeter squared. 27 saved fluoroscopic images. FL/FL upper GI w air IMPRESSION: Sliding-type hiatal hernia and mild gastroesophageal reflux. Mild fold thickening of the proximal stomach. Small diverticulum arising from the proximal posterior stomach.
== END 2022-01-06 08:45 | disposition home or self-care (01) ==
LOC: HO.US 08:44
PROVIDERS: Visit Provider Surgery
DX: Z01.818 Encounter for other preprocedural examination (principal); E66.9 Obesity, unspecified; K21.9 Gastro-esophageal reflux disease without esophagitis
CPT/HCPCS: 74246; 76705; 76981

== ENCOUNTER 2022-01-28 08:37 | Outpatient (REF) | payer OTHER, SELFPAY ==
[2022-01-28 10:11] LABS: Alanine Aminotransferase 14 U/L (0-31); Albumin Level 4.3 g/dL (3.5-5.0); Alkaline Phosphatase 76 U/L (39-117); Anion Gap 14 (12-20); Aspartate Amino Transferase 15 U/L (5-31); Bilirubin Total 0.2 mg/dL (0.0-1.0); Blood Urea Nitrogen 19 mg/dL (9-16); Calcium 9.3 mg/dL (8.4-10.2); Carbon Dioxide 27 mmol/L (22-29); Chloride 106 mmol/L (96-108); Cholesterol 202 mg/dL; Estimated Glomerular Filt Rate > 60; Glucose Fasting 101 mg/dL (60-99); HDL Cholesterol 48 mg/dL; LDL Cholesterol Calculated 134 mg/dl; Potassium 4.5 mmol/L (3.3-5.1); Sodium 142 mmol/L (135-145); Total Protein 6.7 g/dL (6.5-8.0); Triglycerides 104 mg/dL
== END 2022-01-28 08:38 | disposition home or self-care (01) ==
LOC: HO.LAB 08:37
PROVIDERS: PCP Internal Medicine; Visit Provider Internal Medicine
DX: E78.5 Hyperlipidemia, unspecified (principal); E55.9 Vitamin D deficiency, unspecified; I10 Essential (primary) hypertension
CPT/HCPCS: 36415; 80053; 80061; 82306

== ENCOUNTER → 2022-02-08 15:54 | Outpatient (BNVA) | payer OTHER, SELFPAY | PROVIDERS: PCP Internal Medicine; Referring Provider Surgery; Visit Provider Dietitian, Registered | DX: E66.9 Obesity, unspecified (principal) | CPT/HCPCS: 97803 ==

== ENCOUNTER 2022-02-14 10:43 | Outpatient (REF) | payer OTHER, SELFPAY | END 2022-02-14 10:44 | disposition home or self-care (01) | LOC: HO.US 10:43 | DX: Z13.89 Encounter for screening for other disorder (principal) ==

== ENCOUNTER 2022-02-17 10:17 | Day surgery (SDC) | payer OTHER, SELFPAY ==
[2022-02-13 13:56] VITALS: BMI 34.9
--- NOTE | 2022-02-16 09:18 | HO.ANESPROP2 ---
Documented by User: Joy Bill NP 02/16/22 09:20 HPI - Anesthesia Eval Consult details Narrative: 56yo F for ?Upper Endoscopy PMFSH Active Problems Active Problems: All Active Problems (Updated 02/06/22 @ 15:20 by ELIN Patel) Left flank pain (Acute) Stress bladder incontinence, female (Acute) Polyarthralgia (Acute) Hematuria (Acute) H. pylori infection (Acute) Generalized anxiety disorder (Acute) Lump of skin (Acute) Class 2 obesity with body mass index (BMI) of 37.0 to 37.9 in adult (Acute) Chest pain (Acute) Physical exam (Acute) Acute bacterial sinusitis (Acute) Bilateral hand pain (Acute) Generalized pain (Acute) Numbness and tingling (Acute) Headache (Acute) Palpitations (Acute) Class 2 obesity with body mass index (BMI) of 36.0 to 36.9 in adult (Acute) Knee osteoarthritis (Acute) Cough (Acute) Head injury (Acute) Left knee pain (Acute) Obesity (BMI 30-39.9) (Acute) Pain and swelling of left lower leg (Acute) Hospital discharge follow-up (Acute) HTN (hypertension) (Acute) Dyslipidemia (Acute) Insomnia (Acute) Anxiety (Acute) GERD (gastroesophageal reflux disease) (Acute) Vaginal itching (Acute) Past Medical History Medical History Anxiety Chest pain Class 2 obesity with body mass index (BMI) of 36.0 to 36.9 in adult Class 2 obesity with body mass index (BMI) of 37.0 to 37.9 in adult Dyslipidemia Fibromyalgia GERD (gastroesophageal reflux disease) Head injury Hospital discharge follow-up HTN (hypertension) Insomnia Knee osteoarthritis Left flank pain Left knee pain Obesity (BMI 30-39.9) Pain and swelling of left lower leg Physical exam Stress bladder incontinence, female Family History Family History Mother Breast cancer Alzheimer's disease Family/Other Breast cancer Surgical History Surgical History History of bilateral tubal ligation History of breast implant History of hysterectomy History of lumpectomy of right breast Hx of abdominoplasty Social History Social History Housing: House Alcohol intake: current Alcohol intake frequency: a few times a month Alcohol type: wine and other Patient Tobacco Use Status: Former Tobacco user Tobacco use type: Cigarette e-Cigarette/Vaping Use: Never Used Second Hand Smoke Exposure: No Advance Directives: No Advance Directives Information Provided: Yes service: No Current occupational status: employed Current occupational exposures/hazards: No Sexual orientation: Straight/Heterosexual Gender identity: Female Cognitive needs: No Hearing needs: No Vision needs: No Meds Allergies Allergy/AdvReac Type Severity Reaction Status Date / Time No Known Allergies Allergy Verified 02/06/22 11:57 Home Medications Medication Instructions Recorded Confirmed Last Taken Type cholecalciferol (vitamin D3) 125 125 mcg PO DAILY 02/06/22 02/13/22 Unknown History mcg (5,000 unit) capsule Exam Exam Date and Time: February 16, 2022 0918 Height,Weight and Vital Signs: Height 5 ft 2 in Weight 86.636 kg Pertinent Lab Results Pertinent Lab Results: Laboratory Tests 10/06/21 01/28/22 08:50 08:43 WBC 6.6 Hgb 13.3 Hct 40.6 Plt Count 267 Sodium 142 Potassium 4.5 Chloride 106 Carbon Dioxide 27 BUN 19 H Creatinine 0.82 Narrative Narrative: EKG 09/2021 Vent. Rate : 081 BPM ? ? Atrial Rate : 081 BPM ?? P-R Int : 184 ms? QRS Dur : 068 ms ? ? QT Int : 348 ms ? ? ? P-R-T Axes : 050 003 022 degrees ?? QTc Int : 404 ms ? Normal sinus rhythm Low voltage QRS Borderline ECG When compared with ECG of 30-AUG-2021 11:32, No significant change was found Exercise Stress 08/2021 Protocol: ANTONIO ? Max HR: 139 BPM? 85% of? Pred: 163 BPM Max BP: 148/060 mmHG Max Work Load: 7.8 METS ? Exercise stress test with exercise 6 min 32 sec of Antonio protocol, with mild ?sob, no chest discomfort or palpitation, without arrythmia, with normotensive ?response to exercise, without EKG changes meeting criteria for ischemia. Test ?reviewed with Dr Pak. Assessment and Plan Assessment Anesthesia Assessment: Chart Reviewed Documented by User: Uvaldo Ruff MD 02/17/22 10:25 PMF Past Medical History Medical History Anxiety Chest pain Class 2 obesity with body mass index (BMI) of 36.0 to 36.9 in adult Class 2 obesity with body mass index (BMI) of 37.0 to 37.9 in adult Dyslipidemia Fibromyalgia GERD (gastroesophageal reflux disease) Head injury Hospital discharge follow-up HTN (hypertension) Insomnia Knee osteoarthritis Left flank pain Left knee pain Obesity (BMI 30-39.9) Pain and swelling of left lower leg Physical exam Stress bladder incontinence, female Family History Family History Mother Breast cancer Alzheimer's disease Family/Other Breast cancer Family history of problems with anesthesia: No Surgical History Surgical History History of bilateral tubal ligation History of breast implant History of hysterectomy History of lumpectomy of right breast Hx of abdominoplasty History of Problems with Anesthesia: No Social History Social History Housing: House Alcohol intake: current Alcohol intake frequency: a few times a month Alcohol type: wine and other Patient Tobacco Use Status: Former Tobacco user Tobacco use type: Cigarette e-Cigarette/Vaping Use: Never Used Second Hand Smoke Exposure: No Advance Directives: No Advance Directives Information Provided: Yes service: No Current occupational status: employed Current occupational exposures/hazards: No Sexual orientation: Straight/Heterosexual Gender identity: Female Cognitive needs: No Hearing needs: No Vision needs: No Meds Allergies Allergy/AdvReac Type Severity Reaction Status Date / Time No Known Allergies Allergy Verified 02/06/22 11:57 Home Medications Medication Instructions Recorded Confirmed Last Taken Type cholecalciferol (vitamin D3) 125 125 mcg PO DAILY 02/06/22 02/13/22 Unknown History mcg (5,000 unit) capsule Exam Airway Mallampati Class: III TM Dist: >3cm Neck ROM: Full Assessment and Plan Assessment Anesthesia Assessment: Anesthesia Plan Discussed Final Anesthetic Review Family History of Problems with Anesthesia: No History of Problems with Anesthesia: No NPO: Yes ASA Class: III Final Preanesthetic Review: No Changes in Pt Med Stat, Meds/Allgs Chart Reviewed, Consent Obtained/Reviewed and Anes Risks/Benef Reviewed Patient Risk: Intermediate Procedure Risk: Low Anesthetic Plan Anesthetic Plan: MAC: Disposition: Standard PACU
--- NOTE | 2022-02-16 22:58 | MHC.SHP ---
Pre-Procedural Eval Section A Date of Service: 02/16/22 The patient is an INPATIENT: No The History & Physical has been completed within 30 days and I have reviewed it.: Yes Section B Chief Complaint: Gastric diverticulum Relevant Family History (Specify if Yes): No Relevant Social History: None Present Medications: None Medical History: No relevant PMH History of Previous Operations: No relevant previous surgery Allergies: Allergies Allergy/AdvReac Type Severity Reaction Status Date / Time No Known Allergies Allergy Verified 02/06/22 11:57 Review of Systems Sugical H&P ROS: Negative: Constitution, Cardiovascular, Respiratory, Neurological, Psychiatric, Hem-Onc, Allergic/Immunologic, Gastrointestinal, Genitourinary, Musculoskeletal, Integumentary, Endocrine and Eyes/Ears/Nose/Throat Exam Surgical H&P Exam: Normal: HEENT, Normal: Heart, Normal: Lungs, Normal: Extremities, Normal: Abdomen, Normal: Skin and Normal: Neurological Plan Diagnosis/Plan: Unchanged I have reviewed the history and physical and performed a pertinent physical examination on my patient. No changes have occurred unless specified.
[2022-02-17 10:26] VITALS: BP 146/90; PULSE 88; RESP 18; TEMP 36.4; O2SAT 98
[2022-02-17] MEDS: Lactated Ringers 1,000 ML 100 ML IVCONT (10:39)
--- NOTE | 2022-02-17 12:22 | P.BOP_ITS ---
Brief Operative Note Date of Service: 02/17/22 Pre-op diagnosis: Posterior fundal divericulum, GERD, hiatal hernia, H pylori infection recurrent Post-op diagnosis: same Procedure: PROCEDURE DATE: 02/17/2022 PREOPERATIVE DIAGNOSIS: GERD POSTOPERATIVE DIAGNOSIS: ?Same as above. 1) small hiatal hernia, 2) recurrent H pylori infection, 3) posterior fundal diverticulum, 4) GERD PROCEDURE: Gzwmkfre-[id number]-oftqradqagdz with biopsies Surgeon: ?Asif Shaikh M.D.. Ph.D. Tufting Creeler: None ? Anesthesia: IV sedation Estimated blood loss: ?Minimal FINDINGS AND PROCEDURE: ? OPERATIVE INDICATIONS: ?The patient is a 56 year old female known to me who is interested in bariatric surgery. The patient has severe GERD and recent UGI revealed a hiatal hernia and a posterior fundal gastric divericulum. In addition , she has been treated twice for H pylori and continues to have active H pylori infection. Based on this information I recommended an upper endoscopy to evaluate the patient's findings. Risks and complications of the surgery were discussed with the patient in advance particularly the possibility of perforation or bleeding that may require surgical intervention. The patient understood the risks and was in agreement with the plan. ? PROCEDURE: After informed consent was obtained by the patient, the patient was ?transferred to the Operating Room and was placed in the supine position.? After successful induction of IV sedation, a mouth block was inserted and the patient was placed in the left lateral decubitus position. An upper endoscopy was performed next, the oropharynx and esophagus appeared within the normal limits. There was a 3-4cm hiatal hernia. The z-line was smooth. Two biopsies were obtained from the distal esohagus 2-3 cm proximal to the GE junction and two additional biopsies from the GE junction. The stomach was entered and it appeared to be of normal size. There was mild gastritis at distal antrum. There was no stricture or ulcer. Biopsies were obtained from the proxim al sleeve as well as the distal antrum. No significant bleeding was noted from any of the biopsy sites. Retroflexion revealed a small divericulum at the posterior fundal stomach. The scope was then advanced into the duodenum which appeared to be normal as well. At that point the duodenum ?and the sleeve were decompressed and the scope was withdrawn from the patient's mouth. The patient extubated and was transferred in stable condition to the Recovery Room for further care. I was present and performed all steps of the procedure. There were no residents to assist with this case. Asif Shaikh M.D., Ph.D. Surgeon: Rony Shaikh MD Anesthesia: MAC Was an Tufting Creeler used for this Procedure?: No Estimated blood loss (mL): 0 IV fluids (mL): 400 Urine output (mL): 0 (No Garner to record) Pathology: other (1) GE junction x2, 2) distal esophagus x2, 3) gastric fundus x1, 4) antrum x1) Condition: stable Disposition: PACU
[2022-02-17 12:57] VITALS: BP 113/63; PULSE 89; RESP 15; TEMP 36.2; O2SAT 99
[2022-02-17 13:19] VITALS: BP 129/81; PULSE 74; RESP 16; O2SAT 97
== END 2022-02-17 13:42 | disposition home or self-care (01) ==
PROVIDERS: PCP Internal Medicine; Visit Provider Surgery
PROC: 0DJ08ZZ Inspection of Upper Intestinal Tract, Via Natural or Artificial Opening Endoscopic (ICD-10-PCS; CPT 43235; principal; 2022-02-17 11:40)
DX: K31.4 Gastric diverticulum (principal); K21.9 Gastro-esophageal reflux disease without esophagitis; K44.9 Diaphragmatic hernia without obstruction or gangrene; K29.60 Other gastritis without bleeding; E66.9 Obesity, unspecified; Z68.34 Body mass index [BMI] 34.0-34.9, adult; I10 Essential (primary) hypertension; E78.5 Hyperlipidemia, unspecified; M79.7 Fibromyalgia; F41.1 Generalized anxiety disorder; Z86.19 Personal history of other infectious and parasitic diseases; Z79.899 Other long term (current) drug therapy; Z79.890 Hormone replacement therapy; Z87.891 Personal history of nicotine dependence
CPT/HCPCS: 43239; 88305; 88342

== ENCOUNTER → 2022-02-23 16:00 | Outpatient (BNVA) | payer OTHER, SELFPAY | PROVIDERS: PCP Internal Medicine; Referring Provider Surgery; Visit Provider Counselor Mental Health | DX: F41.1 Generalized anxiety disorder (principal) | CPT/HCPCS: 90834 ==

== ENCOUNTER → 2022-03-08 13:00 | Outpatient (BNVA) | payer OTHER, SELFPAY | PROVIDERS: PCP Internal Medicine; Visit Provider Counselor Mental Health | DX: F32.A Depression, unspecified (principal) | CPT/HCPCS: 90834 ==

== ENCOUNTER 2022-03-22 14:30 | Outpatient (REF) | payer OTHER, SELFPAY ==
[2022-03-22 16:44] LABS: MANUAL DIFF FLAG NO
[2022-03-22 16:48] LABS: Basophils Percent Auto 0.4 % (0-2); Eosinophils Absolute Auto 0.1 X10*3/uL (0.0-0.4); Hematocrit 39.7 % (37.0-47.0); Hemoglobin 13.3 g/dl (12.0-16.0); Imm Gran Abs Auto 0.02 X10*3/uL (0.00-0.03); Imm Gran Pct Auto 0.3 % (0.0-0.4); Lymphocytes Percent Auto 38.6 % (20-40); Mean Corpuscular HGB Conc 33.5 g/dl (31.0-35.0); Mean Corpuscular Hemoglobin 31.4 pg (27.0-33.0); Mean Corpuscular Volume 93.6 fL (80.0-98.0); Mean Platelet Volume 11.3 fL (9.4-12.3); Monocytes Absolute Auto 0.5 X10*3/uL (0.1-1.2); Monocytes Percent Auto 6.7 % (2-11); Neutrophils Absolute Auto 4.1 x10*3/uL (2.0-8.3); Platelet Count 300 X10*3/uL (160-400); Red Blood Count 4.24 X10*6/uL (4.20-5.50); Red Cell Distribution Width 12.2 % (11.0-16.0); White Blood Count 7.8 X10*3/uL (4.8-10.8)
[2022-03-22 17:03] LABS: Alanine Aminotransferase 19 U/L (0-31); Albumin Level 4.4 g/dL (3.5-5.0); Alkaline Phosphatase 78 U/L (39-117); Anion Gap 15 (12-20); Aspartate Amino Transferase 21 U/L (5-31); Bilirubin Total 0.5 mg/dL (0.0-1.0); Blood Urea Nitrogen 17 mg/dL (9-16); Calcium 9.6 mg/dL (8.4-10.2); Carbon Dioxide 24 mmol/L (22-29); Chloride 106 mmol/L (96-108); Estimated Glomerular Filt Rate > 60; Glucose Random 107 mg/dL (60-115); Potassium 4.2 mmol/L (3.3-5.1); Sodium 141 mmol/L (135-145); Total Protein 7.1 g/dL (6.5-8.0)
== END 2022-03-22 14:31 | disposition home or self-care (01) ==
LOC: HO.HMGCLDS 14:30
PROVIDERS: PCP Internal Medicine; Visit Provider Physician Assistant
DX: L29.9 Pruritus, unspecified (principal)
CPT/HCPCS: 36415; 80053; 85025

== ENCOUNTER 2022-05-04 19:13 | Outpatient (REF) | payer OTHER, SELFPAY ==
--- NOTE | ~2022-05-04 | MR_ITS ---
EXAMINATION: MR BRAIN WITHOUT CONTRAST CLINICAL INFORMATION: New daily persistent headaches, memory loss, left arm numbness COMPARISON: CT head without contrast 12/10/2020 TECHNIQUE: Multiplanar multisequence MR imaging of the brain was obtained without intravenous contrast. FINDINGS: Patient was unable to remove a right-sided earing which results in susceptibility artifact which obscures the right middle cranial fossa on some sequences. There is no acute infarct on diffusion-weighted imaging. There is no intracranial hemorrhage on iron-sensitive imaging. No extra-axial collection or mass effect/herniation. Scattered periventricular and deep white matter T2 FLAIR hyperintensities consistent with mild to moderate underlying microangiopathy. No hydrocephalus. The ventricles are normal in morphology and size. The major flow voids at the skull base are preserved. Stable partially empty sella. The cerebellar tonsils are normally positioned. The craniocervical junction is normal. Marrow signal is within normal limits. The visualized soft tissues are without significant abnormality. No signal abnormality within the paranasal sinuses or within the mastoid air cells. MR/MR head/brain wo con IMPRESSION: 1. No acute intracranial process. 2. Stable partially empty sella. 3. Mild to moderate chronic microangiopathic white matter signal changes
== END 2022-05-04 19:14 | disposition home or self-care (01) ==
LOC: HO.MRI 19:13
PROVIDERS: Visit Provider Internal Medicine
DX: G44.52 New daily persistent headache (NDPH) (principal); R20.0 Anesthesia of skin; R20.2 Paresthesia of skin
CPT/HCPCS: 70551

== ENCOUNTER → 2022-05-18 12:47 | Outpatient (REF) | payer OTHER, SELFPAY ==
--- NOTE | 2022-05-18 12:54 | HM_ITS ---
Conclusion: 1. Patient was monitored for total period of 2 days 2. Baseline was normal sinus rhythm with average heart rate of 92 beats per minute 3. No significant pauses or bradycardia noted next 4. Frequent sinus tachycardia with 26% of the time heart rate about 100 beats per minute 4. Very rare ectopy noted 5. Patient reported 3 events that correlated with sinus rhythm MTDD
[2022-05-18 14:25] LABS: Appearance Urine Clear; Color Urine Yellow; Glucose Urine UA Negative (Negative); Leukocyte Esterase Urine Negative (Negative); Nitrite Urine Negative (Negative); Specific Gravity - Urine >= 1.030 (1.005-1.025); UMIC TRIGGER UACC YES; Urine Blood Small (1+) (Negative); Urine Ketones Negative (Negative); Urine Protein Negative (Neg-Trace)
[2022-05-18 14:28] LABS: Bacteria Urine None Seen (None Seen); Hyaline Casts Urine 0-2 /LPF (0-2); WBC Urine 0-5 /HPF (0-5)
[2022-05-18 14:39] LABS: Alanine Aminotransferase 17 U/L (0-31); Albumin Level 4.6 g/dL (3.5-5.0); Alkaline Phosphatase 77 U/L (39-117); Anion Gap 13 (12-20); Aspartate Amino Transferase 17 U/L (5-31); Bilirubin Total 0.6 mg/dL (0.0-1.0); Blood Urea Nitrogen 22 mg/dL (9-16); Calcium 9.7 mg/dL (8.4-10.2); Carbon Dioxide 27 mmol/L (22-29); Chloride 105 mmol/L (96-108); Cholesterol 197 mg/dL; Estimated Glomerular Filt Rate > 60; Glucose Fasting 81 mg/dL (60-99); HDL Cholesterol 56 mg/dL; LDL Cholesterol Calculated 106 mg/dl; Potassium 4.1 mmol/L (3.3-5.1); Sodium 141 mmol/L (135-145); Total Protein 7.1 g/dL (6.5-8.0); Triglycerides 179 mg/dL
[2022-05-18 15:40] LABS: Cortisol Random 5.4 ug/dL
[2022-05-20 04:56] LABS: Prolactin 5.5 ng/mL
== END ==
LOC: HO.CARD 12:47
PROVIDERS: PCP Internal Medicine; Visit Provider Internal Medicine
DX: R00.0 Tachycardia, unspecified (principal); E78.5 Hyperlipidemia, unspecified; E23.6 Other disorders of pituitary gland
CPT/HCPCS: 36415; 80053; 80061; 81001; 82533; 84146; 84443; 93226; 93242

== ENCOUNTER 2022-05-27 10:34 | Outpatient (REF) | payer OTHER, SELFPAY ==
[2022-05-27 11:07] LABS: Appearance Urine Clear; Color Urine Yellow; Glucose Urine UA Negative (Negative); Leukocyte Esterase Urine Negative (Negative); Nitrite Urine Negative (Negative); PH 6.5 (5.0-9.0); UMIC TRIGGER UACC YES; Urine Blood Moderate (2+) (Negative); Urine Ketones Negative (Negative); Urine Protein Negative (Neg-Trace)
[2022-05-27 11:12] LABS: Bacteria Urine None Seen (None Seen); Hyaline Casts Urine 0-2 /LPF (0-2); Squamous Epithelial Cell Urine 0-2 /HPF (0-2); WBC Urine 0-5 /HPF (0-5)
[2022-05-27 11:34] LABS: Cortisol Random 5.7 ug/dL
[2022-05-27 11:36] LABS: Free T4 (Free Thyroxine) 0.99 ng/dL (0.71-1.85); Thyroid Stimulating Hormone 1.05 uIU/mL (0.32-4.0)
[2022-06-02 14:04] LABS: IGF-1 (Somatomedin C) 137 ng/mL (50-317); IGF-1 Z Score (Female) 0.1 SD (-2.0 - +2.0)
== END 2022-05-27 10:35 | disposition home or self-care (01) ==
LOC: HO.LAB 10:34
PROVIDERS: PCP Internal Medicine; Visit Provider Internal Medicine Endocrinology, Diabetes & Metabolism
DX: E23.6 Other disorders of pituitary gland (principal); R30.0 Dysuria
CPT/HCPCS: 36415; 81001; 82533; 84305; 84439; 84443

== ENCOUNTER 2022-06-16 07:22 | Outpatient (REF) | payer OTHER, SELFPAY ==
[2022-06-19 13:13] LABS: Cortisol 30 Minute 25.2 mcg/dL; Cortisol 60 Minute 30.9 mcg/dL; Cortisol Baseline 6.4 mcg/dL
[2022-06-20 15:54] LABS: Adrenocorticotropic Hormone 7 pg/mL (6-50)
== END 2022-06-16 07:23 | disposition home or self-care (01) ==
LOC: HO.MDS 07:22
PROVIDERS: PCP Internal Medicine; Visit Provider Internal Medicine Endocrinology, Diabetes & Metabolism
DX: E27.40 Unspecified adrenocortical insufficiency (principal)
CPT/HCPCS: 36415; 82024; 82533; 96374; J0834

== ENCOUNTER 2022-09-22 07:53 | Outpatient (REF) | payer OTHER, SELFPAY ==
[2022-09-22 08:16] LABS: MANUAL DIFF FLAG NO
[2022-09-22 08:33] LABS: Basophils Percent Auto 0.4 % (0-2); Eosinophils Absolute Auto 0.1 X10*3/uL (0.0-0.4); Eosinophils Percent Auto 1.2 % (0-4); Hematocrit 42.3 % (37.0-47.0); Imm Gran Abs Auto 0.01 X10*3/uL (0.00-0.03); Imm Gran Pct Auto 0.1 % (0.0-0.4); Lymphocytes Absolute Auto 2.6 X10*3/uL (1.2-4.9); Lymphocytes Percent Auto 37.7 % (20-40); Mean Corpuscular HGB Conc 33.1 g/dl (31.0-35.0); Mean Corpuscular Hemoglobin 30.7 pg (27.0-33.0); Mean Corpuscular Volume 92.8 fL (80.0-98.0); Mean Platelet Volume 10.5 fL (9.4-12.3); Monocytes Absolute Auto 0.6 X10*3/uL (0.1-1.2); Monocytes Percent Auto 8.7 % (2-11); Neutrophils Absolute Auto 3.5 x10*3/uL (2.0-8.3); Neutrophils Percent Auto 51.9 % (45-73); Platelet Count 313 X10*3/uL (160-400); Red Blood Count 4.56 X10*6/uL (4.20-5.50); Red Cell Distribution Width 11.9 % (11.0-16.0); White Blood Count 6.8 X10*3/uL (4.8-10.8)
[2022-09-22 09:01] LABS: Alanine Aminotransferase 14 U/L (0-31); Albumin Level 4.5 g/dL (3.5-5.0); Alkaline Phosphatase 70 U/L (39-117); Anion Gap 13 (12-20); Aspartate Amino Transferase 15 U/L (5-31); Bilirubin Total 0.7 mg/dL (0.0-1.0); Blood Urea Nitrogen 18 mg/dL (9-16); Calcium 9.4 mg/dL (8.4-10.2); Carbon Dioxide 26 mmol/L (22-29); Chloride 107 mmol/L (96-108); Cholesterol 180 mg/dL; Estimated Glomerular Filt Rate > 60; Glucose Random 98 mg/dL (60-115); HDL Cholesterol 52 mg/dL; LDL Cholesterol Calculated 108 mg/dl; Potassium 4.5 mmol/L (3.3-5.1); Sodium 141 mmol/L (135-145); Total Protein 6.8 g/dL (6.5-8.0); Triglycerides 102 mg/dL
[2022-09-22 09:20] LABS: Vitamin D 25-OH Total 37.8 ng/mL (>30)
[2022-09-22 09:49] LABS: Appearance Urine Clear; Color Urine Yellow; Glucose Urine UA Negative (Negative); Leukocyte Esterase Urine Negative (Negative); Nitrite Urine Negative (Negative); Specific Gravity - Urine 1.025 (1.005-1.025); UMIC TRIGGER UACC YES; Urine Blood Small (1+) (Negative); Urine Ketones Negative (Negative); Urine Protein Negative (Neg-Trace)
[2022-09-22 09:52] LABS: Bacteria Urine None Seen (None Seen); Hyaline Casts Urine 0-2 /LPF (0-2); Squamous Epithelial Cell Urine 0-2 /HPF (0-2); WBC Urine 0-5 /HPF (0-5)
== END 2022-09-22 07:54 | disposition home or self-care (01) ==
LOC: HO.LAB 07:53
PROVIDERS: Absent Provider Nurse Practitioner Family; PCP Internal Medicine; Visit Provider Internal Medicine
DX: Z13.220 Encounter for screening for lipoid disorders (principal); Z13.0 Encounter for screening for diseases of the blood and blood-forming organs and certain disorders involving the immune mechanism; Z13.21 Encounter for screening for nutritional disorder; K44.9 Diaphragmatic hernia without obstruction or gangrene; A04.8 Other specified bacterial intestinal infections; E66.9 Obesity, unspecified; Z68.37 Body mass index [BMI] 37.0-37.9, adult; K31.4 Gastric diverticulum
CPT/HCPCS: 36415; 80053; 80061; 81001; 82306; 85025

== ENCOUNTER 2022-10-16 13:35 | Outpatient (REF) | payer OTHER, SELFPAY ==
[2022-10-16 16:10] LABS: Influenza A PCR NEGATIVE (Negative); Influenza B PCR NEGATIVE (Negative); Resp Syncy Virus RNA Qual PCR NEGATIVE (Negative); SARS COV2 PCR INHOUSE NEGATIVE (Negative)
== END 2022-10-16 13:36 | disposition home or self-care (01) ==
LOC: HO.LAB 13:35
PROVIDERS: Visit Provider Internal Medicine
DX: R09.89 Other specified symptoms and signs involving the circulatory and respiratory systems (principal); Z20.822 Contact with and (suspected) exposure to COVID-19
CPT/HCPCS: 0241U

== ENCOUNTER 2022-10-26 11:59 | Outpatient (REF) | payer OTHER, SELFPAY ==
--- NOTE | 2022-10-26 08:00 | EMG_ITS ---
FINDINGS: Left median and ulnar motor and sensory studies were performed. Left radial sensory study was performed and paraspinal muscles were tested with a needle. IMPRESSION: 1. Unremarkable study with no evidence of entrapment neuropathy or radiculopathy. 2. Left Ciaran-Aubrey anastomosis, normal variant. MD GURPREET Low/MARTIR / [id number]
== END 2022-10-26 12:00 | disposition home or self-care (01) ==
LOC: HO.NEURO 11:59
PROVIDERS: PCP Internal Medicine; Visit Provider Internal Medicine
DX: R20.0 Anesthesia of skin (principal)
CPT/HCPCS: 95886; 95909

== ENCOUNTER 2022-11-11 09:46 | Outpatient (REF) | payer OTHER, SELFPAY ==
--- NOTE | ~2022-11-11 | MM_ITS ---
EXAMINATION: MM SCREENING DIGITAL BREAST TOMOSYNTHESIS, BILATERAL CLINICAL INFORMATION: Screening. Asymptomatic. Family history premenopausal breast cancer, mother, cousin. The lifetime risk of breast cancer based on the Tyrer-Cuzick Model is 14%. COMPARISON: Mammography: 07/09/2021, 06/15/2020, 02/05/2019 TECHNIQUE: Digital mammography is performed in craniocaudal and mediolateral oblique views along with computer-aided detection (CAD). Digital breast tomosynthesis is performed in implant-displaced craniocaudal and implant-displaced mediolateral oblique views along with computer-aided detection (CAD). Synthesized 2D images are generated from the tomosynthesis. FINDINGS: There are scattered areas of fibroglandular density (ACR BI-RADS breast composition Category b). There are no significant masses, abnormal calcifications, or other abnormalities. Parenchymal pattern is similar to prior studies. There is no developing density or architectural abnormality. Implant contours are smooth and similar to prior studies. The axilla and skin contours are unremarkable. No significant changes. MM/MM tomosynthesis screen imp BI IMPRESSION: No mammographic evidence of malignancy. ASSESSMENT: BI-RADS 1: Negative RECOMMENDATION: Routine annual mammography screening. This patient's information was entered into a reminder system with a target due date for their next mammogram.
== END 2022-11-11 09:47 | disposition home or self-care (01) ==
LOC: HO.MAMMO 09:46
PROVIDERS: PCP Internal Medicine; Visit Provider Internal Medicine
DX: Z12.31 Encounter for screening mammogram for malignant neoplasm of breast (principal)
CPT/HCPCS: 77063; 77067

== ENCOUNTER 2022-11-23 06:42 | Outpatient (REF) | payer OTHER, SELFPAY ==
--- NOTE | ~2022-11-23 | XR_ITS ---
EXAMINATION: XR KNEE, LEFT CLINICAL INFORMATION: Left knee pain. COMPARISON: 11/22/2020. TECHNIQUE: Three views of the left knee. FINDINGS: There is no significant change compared to previous study of 11/22/2020. There is significant narrowing of the medial joint space compartment with marginal spurring and sclerosis. The lateral joint space compartment is maintained with minimal marginal spurring. There is mild narrowing of the patellofemoral joint with prominent spurring. There is a 4 mm calcific density again noted in the region of the tibial spines and may represent loose body. No significant pleural effusion is appreciated. XR/XR knee LT 3V IMPRESSION: No significant change in appearance of the left knee with degenerative changes seen involving the medial joint space compartment and patellofemoral joint space. Question loose body.
== END 2022-11-23 06:43 | disposition home or self-care (01) ==
LOC: HO.XRAY 06:42
PROVIDERS: PCP Internal Medicine; Visit Provider Internal Medicine
DX: M25.562 Pain in left knee (principal)
CPT/HCPCS: 73562

== ENCOUNTER 2022-12-07 08:28 | Outpatient (REF) | payer OTHER, SELFPAY ==
[2022-12-07 17:14] LABS: Urine Cytology See Pathology rpt
== END 2022-12-07 08:29 | disposition home or self-care (01) ==
LOC: HO.LNP 08:28
PROVIDERS: PCP Internal Medicine; Visit Provider Nurse Practitioner Family
DX: R31.29 Other microscopic hematuria (principal); R39.89 Other symptoms and signs involving the genitourinary system; N39.0 Urinary tract infection, site not specified; M54.50 Low back pain, unspecified; N39.3 Stress incontinence (female) (male); Z79.899 Other long term (current) drug therapy
CPT/HCPCS: 51798; 88112

== ENCOUNTER 2023-01-12 10:10 | Outpatient (AMB) | payer OTHER, SELFPAY ==
[2023-01-12 10:13] VITALS: BP 108/70; PULSE 90; O2SAT 98; BMI 31.2
--- NOTE | 2023-01-12 10:13 | A.OFFPC_ITS ---
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: No Allergies No Known Allergies Allergy (Verified 01/12/23 10:33) Medication List - Last Reconciled 01/12/23 by ELIN Love albuterol sulfate 90 mcg/actuation (ProAir HFA) 2 puffs inhalation Q4-6H PRN amlodipine 5 mg PO DAILY 90 days amoxicillin-pot clavulanate 875-125 mg 1 tab PO BID 7 days atorvastatin 40 mg PO BEDTIME 90 days blood pressure monitor As directed bupropion HCl (smoking deter) 150 mg PO BID 90 days cholecalciferol (vitamin D3) 25 mcg PO DAILY 90 days fluconazole (Diflucan) 200 mg PO ONCE lidocaine 5% 1 appl topical BEDTIME PRN 30 days lorazepam 0.5 mg PO BID PRN 30 days losartan 100 mg PO DAILY 90 days omeprazole 20 mg PO BID 14 days phenazopyridine 100 mg PO Q8H 6 doses Tobacco use date assessed: 01/12/23 HPI black toe nail on right foot HPI Details Patient is a 57-year-old female presents today for an office visit due to right great toenail brown/green/black for the past [address] Esparza. She denies toe injury. She reports that this color is not improving. She reports mild tenderness to palpation. No numbness or tingling, no pain with ambulation. She denies this in the past. Toenails are done by her daughter. Patient denies shortness of breath or chest pain. [facility] Medical History Anxiety Chest pain Class 2 obesity with body mass index (BMI) of 36.0 to 36.9 in adult Class 2 obesity with body mass index (BMI) of 37.0 to 37.9 in adult Dyslipidemia Fibromyalgia GERD (gastroesophageal reflux disease) Head injury Hiatal hernia Hospital discharge follow-up HTN (hypertension) Insomnia Knee osteoarthritis Left flank pain Left knee pain Obesity (BMI 30-39.9) Pain and swelling of left lower leg Physical exam Stress bladder incontinence, female Surgical History History of bilateral tubal ligation History of breast implant History of hysterectomy History of lumpectomy of right breast Hx of abdominoplasty Family History Mother Breast cancer Alzheimer's disease Family/Other Breast cancer Social History Housing: House Alcohol intake: current Alcohol intake frequency: holidays/special occasions on ly Alcohol type: wine and other Patient Tobacco Use Status: Former Tobacco user Tobacco use type: Cigarette e-Cigarette/Vaping Use: Never Used Second Hand Smoke Exposure: No service: No Current occupational status: employed Current occupation: Works for the [employer] Current occupational exposures/hazards: No Sexual orientation: Straight/Heterosexual Gender identity: Female Cognitive needs: No Hearing needs: No Vision needs: No Questionnaire Thrive Questionnaire Date Thrive assessed: 09/27/22 AUDIT C Alcohol Use Questionnaire (AUDIT-C) 1. How often do you have a drink containing alcohol?: Never Total Score: 0 Score Reviewed/Action Taken: No SHAYLEE-7 AMB Questionnaire SHAYLEE-7 Date SHAYLEE - 7 assessed: 09/27/22 Source: Developed by Drs. Marck Bruce, Anaid Ro, Timo oRsen and colleagues, with an educational annemarie from [employer]. Review of Systems Const Denies body aches, Denies chills, Denies fever(s) and Denies headache(s) Eyes Denies change in vision ENT Denies dizziness, Denies otalgia, Denies headache(s), Denies nasal discharge, Denies sinus pain and Denies sore throat Card Denies chest pain, Denies edema, Denies lightheadedness and Denies dyspnea Resp Denies cough and Denies dyspnea GI Denies abdominal pain Denies dysuria Musc Denies myalgias Skin/Breast Reports as per HPI and Denies rash Neuro Denies dizziness and Denies headache(s) Physical exam (Primary Care) Vital Signs: Last Vital Signs Pulse 90 01/12/23 10:13 BP 108/70 01/12/23 10:13 Pulse Ox 98 01/12/23 10:13 Oxygen Delivery Method Room Air 01/12/23 10:13 BMI result Body Mass Index 31.2 Tobacco/Smoking Status: Tobacco use Status Tobacco use date assessed 01/12/23 01/12/23 10:14 Patient Tobacco Use Status Former Tobacco user 01/12/23 10:14 Tobacco use type Cigarette 01/12/23 10:14 e-Cigarette/Vaping Use Never Used 01/12/23 10:14 Thrive Assessment: Date of Thrive Assessment Date Thrive assessed 09/27/22 01/12/23 10:14 Const General: cooperative and no acute distress Orientation/consciousness: patient oriented x3 HENMT Head: Yes normocephalic and Yes atraumatic Mouth: moist mucous membranes Throat: Yes posterior oropharynx normal Eyes General: appearance normal, both eyes and all related structures Neck Neck: Yes normal visual inspection and Yes full ROM Resp Effort & Inspection: normal respiratory effort and able to speak in complete sentences Auscultation: clear to auscultation bilaterally, no crackles, no rales, no rhonchi and no wheezes Cardio Rate: regular rate Rhythm: regular rhythm Heart sounds: S1 normal heart sound present and S2 normal heart sound present Peripheral pulses: dorsalis pedis present on the right GI Auscultation: normal bowel sounds Skin Other: Right great toenail with moderate amount of green/black/brown color, very mild tenderness noted on the top of male, full range of motion, no redness, no warmth no discharge Neuro General: patient oriented x3 Gait exam (Neuro): Normal gait present Extrem General: Yes full ROM and No edema Assessment and Plan Assessment & Plan (1) Toenail fungus: Code(s): B35.1 - Tinea unguium Plan: Right great toenail with moderate amount of green/black/brown color, very mild tenderness noted on the top of nail, full range of motion, no redness, no warmth no discharge. Will refer to Podiatry for an evaluation and treatment. Encouraged trial of water with vinegar soaks 2 times per day. patient agreed with the plan. Keep appointment with PCP as scheduled or follow-up sooner as needed. Orders: Referrals Podiatry Referral B35.1 - Tinea unguium Coding Level of Care Code Est Pt Level 3 (84553) Diagnoses Toenail fungus B35.1
== END 2023-01-12 10:48 | disposition home or self-care (01) ==
PROVIDERS: PCP Internal Medicine; Visit Provider Nurse Practitioner Family
DX: B35.1 Tinea unguium (principal)
CPT/HCPCS: 99213

== ENCOUNTER 2023-01-22 13:48 | Outpatient (REF) | payer OTHER, SELFPAY | END 2023-01-22 13:49 | disposition home or self-care (01) | LOC: HO.LNP 13:48 | PROVIDERS: Visit Provider Nurse Practitioner Family | DX: Z13.89 Encounter for screening for other disorder (principal) ==

== ENCOUNTER 2023-01-25 09:25 | Outpatient (REF) | payer OTHER, SELFPAY | END 2023-01-25 09:26 | disposition home or self-care (01) | LOC: HO.LNP 09:25 | PROVIDERS: Visit Provider Nurse Practitioner Family | DX: Z13.89 Encounter for screening for other disorder (principal) ==

== ENCOUNTER 2023-01-27 07:20 | Outpatient (REF) | payer OTHER, SELFPAY ==
[2023-01-27 08:46] LABS: Appearance Urine Clear; Color Urine Yellow; Glucose Urine UA Negative (Negative); Leukocyte Esterase Urine Negative (Negative); Nitrite Urine Negative (Negative); PH 6.5 (5.0-9.0); UMIC TRIGGER UACC YES; Urine Blood Small (1+) (Negative); Urine Ketones Negative (Negative); Urine Protein Negative (Neg-Trace)
[2023-01-27 08:57] LABS: Bacteria Urine None Seen (None Seen); Hyaline Casts Urine 0-2 /LPF (0-2); Squamous Epithelial Cell Urine 0-2 /HPF (0-2); WBC Urine 0-5 /HPF (0-5)
== END 2023-01-27 07:21 | disposition home or self-care (01) ==
LOC: HO.LAB 07:20
PROVIDERS: PCP Internal Medicine; Visit Provider Nurse Practitioner Family
DX: R39.9 Unspecified symptoms and signs involving the genitourinary system (principal)
CPT/HCPCS: 81001

== ENCOUNTER 2023-01-29 08:29 | Outpatient (REF) | payer OTHER, SELFPAY | END 2023-01-29 08:30 | disposition home or self-care (01) | LOC: HO.HOSX 08:29 | PROVIDERS: Visit Provider Orthopaedic Surgery | DX: Z13.89 Encounter for screening for other disorder (principal) ==

== ENCOUNTER 2023-02-15 08:18 | Outpatient (AMB) | payer OTHER, SELFPAY ==
--- NOTE | 2023-02-15 08:21 | MHC.OFFVIS ---
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 She was previously seen with rheumatology who referred her to PT and recommended weight loss. patient reports weight loss of 28 lbs. Uses topical lidocaine with mild relief. 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 The patient was referred by Dr. Itzel Cade. The patient reports occasional pain in bilateral knee with weather changes. She has recently lost about seven lbs, which eventually helped her. She has difficulty walking long distance more than a mile. She has noticed limping with ambulation. Her doctor advised to stay active and walk on treadmill; however, she is unable to and worried it will further deteriorate her condition. She is not taking any NSAIDs medication. [facility] Medical History Anxiety Chest pain Class 2 obesity with body mass index (BMI) of 36.0 to 36.9 in adult Class 2 obesity with body mass index (BMI) of 37.0 to 37.9 in adult Dyslipidemia Fibromyalgia GERD (gastroesophageal reflux disease) Head injury Hiatal hernia Hospital discharge follow-up HTN (hypertension) Insomnia Knee osteoarthritis Left flank pain Left knee pain Obesity (BMI 30-39.9) Pain and swelling of left lower leg Physical exam Stress bladder incontinence, female Surgical History History of bilateral tubal ligation History of breast implant History of hysterectomy History of lumpectomy of right breast Hx of abdominoplasty Family History Mother Breast cancer Alzheimer's disease Family/Other Breast cancer Social History Housing: House Alcohol intake: current Alcohol intake frequency: holidays/special occasions only Alcohol type: wine and other Patient Tobacco Use Status: Former Tobacco user Tobacco use type: Cigarette e-Cigarette/Vaping Use: Never Used Second Hand Smoke Exposure: No service: No Current occupational status: employed Current occupation: Works for the [employer] Current occupational exposures/hazards: No Sexual orientation: Straight/Heterosexual Gender identity: Female Cognitive needs: No Hearing needs: No Vision needs: No Physical Exam Const General: no acute distress, alert and awake Orientation/consciousness: patient oriented x3 HEENT Head: Yes normocephalic and Yes atraumatic Mouth: moist mucous membranes Eyes General: appearance normal, both eyes and all related structures EOM: EOMs intact bilaterally Chest Other: no audible wheezing. Resp Other: No audible wheezing Effort & Inspection: normal respiratory effort and able to speak in complete sentences Cardio Other: Radial pulse palpable with no rythmic abnormalities Jugular venous distension: no JVD Back/Spine/Pelvis Cervical Spine: normal cervical lordosis Skin General skin exam: turgor normal Rashes: no rashes Neuro General: patient oriented x3 Extrem Other: varus knee bilaterally TTP medial comaprtment bilaterally mild effusion 0-130 deg bilaterally Psych Appearance: grossly normal Mental Status: mental status grossly normal Speech and movement: Normal speech and movement present Affect: normal affect Attitude: cooperative Results Reviewed Results Reviewed: I personally reviewed relevant radiographs. Severe vaurs pattern knee OA bilaterally Assessment & Plan Assessment & Plan (1) Bilateral primary osteoarthritis of knee: Code(s): M17.0 - Bilateral primary osteoarthritis of knee Plan: We discussed different possible treatment options with the patient including regular exercises, oral medications, diagnostic/therapeutic injections, surgical interventions. The patient will inform us, if she wants to proceed with injections. I recommend trying OTC ibuprofen 800 mg once daily for pain management. A prescription of ibuprofen 800 mg was provided to the patient. For time being, I recommended gentle exercises at home to be physically active. Scribed for Dr. Reinaldo Alvarado by Arun Napoles, medical assistant prn, on 02/15/2023. I, Dr. Reinaldo Alvarado, have personally reviewed and agree with the information entered by the scribe. Orders: Orders XR knee RT 2V 01/29/23 M25.569 - Pain in unspecified knee XR knee standing BI 01/29/23 M25.569 - Pain in unspecified knee XR knee standing BI Today M25.569 - Pain in unspecified knee Medications: New ibuprofen 800 mg PO TID PRN 90 tabs 0RF pain Coding Level of Care Code New Pt Level 3 (89119) Diagnoses Bilateral primary osteoarthritis of knee M17.0
== END 2023-02-15 09:00 | disposition home or self-care (01) ==
PROVIDERS: PCP Internal Medicine; Visit Provider Orthopaedic Surgery
DX: M17.0 Bilateral primary osteoarthritis of knee (principal)
CPT/HCPCS: 99203

== ENCOUNTER 2023-02-15 10:20 | Outpatient (REF) | payer OTHER, SELFPAY ==
--- NOTE | ~2023-02-15 | XR_ITS ---
EXAMINATION: XR KNEE AP STANDING CLINICAL INFORMATION: Knee pain. COMPARISON: Radiographs of left knee from 11/23/2022 and right knee from 05/15/2014 TECHNIQUE: AP bilateral standing view of the knees was obtained. FINDINGS: Right knee: Interval increased size of marginal osteophytes at tibiofemoral compartments since 05/15/2014. Severe loss of medial tibiofemoral joint space with [id number] contact and mild tibial subarticular sclerosis. Associated mild genu varus deformity. No fracture or subluxation. Left knee: No significant change since 11/23/2022. There are prominent marginal osteophytes at the visualized tibiofemoral compartments. There is severe loss of the medial tibiofemoral joint space with subarticular sclerosis and mild genu varus deformity. No fracture or subluxation. XR/XR knee standing BI IMPRESSION: At each knee, the joint degeneration is worse at medial than lateral tibiofemoral compartments and there is associated bilateral genu varus deformity. The osteoarthritis of the left knee remains similar compared to 11/23/2022. The osteoarthritis of the right knee has worsened since 05/15/2014.
== END 2023-02-15 10:21 | disposition home or self-care (01) ==
LOC: HO.HOSX 10:20
PROVIDERS: Visit Provider Orthopaedic Surgery
DX: M17.0 Bilateral primary osteoarthritis of knee (principal)
CPT/HCPCS: 73565

== ENCOUNTER 2023-02-19 09:26 | Outpatient (REF) | payer OTHER, SELFPAY ==
--- NOTE | ~2023-02-19 | US_ITS ---
EXAMINATION: US RETROPERITONEAL COMPLETE (RENAL) CLINICAL INFORMATION: Other microscopic hematuria. COMPARISON: US abdomen complete with liver elastography 01/06/2022. Ultrasound retroperitoneal limited (renal only) 09/15/2019. CT abdomen and pelvis without contrast 03/07/2019. X-ray abdomen KUB 03/05/2019. TECHNIQUE: Real-time imaging of the kidneys and bladder. FINDINGS: RIGHT KIDNEY: 10.1 x 5.3 x 6.2 cm (SAG x AP x TRV). The kidney is normal in size, contour, and echogenicity. Renal cortical thickness is normal. No hydronephrosis. 0.7 x 0.8 x 0.7 cm simple parapelvic cyst is seen in the lower pole. No imaging follow-up of this finding is recommended. 0.5 x 0.3 x 0.4 cm. 0.5 x 0.3 x 0.4 cm cortical calcification in the lower pole is seen. LEFT KIDNEY: 10.4 x 5.9 x 5.0 cm (SAG x AP x TRV). The kidney is normal in size, contour, and echogenicity. Renal cortical thickness is normal. No calculi or focal parenchymal lesions. No hydronephrosis. BLADDER: Well distended and normal. Bilateral ureteral jets are demonstrated. Prevoid bladder volume is 166.91 mL. Postvoid bladder volume is 1.64 mL. US/US retroperitoneal comp IMPRESSION: 1. 0.5 cm cortical calcification in the lower pole of the right kidney. 2. Normal appearance of the left kidney. 3. No significant post void residual.
== END 2023-02-19 09:27 | disposition home or self-care (01) ==
LOC: HO.US 09:26
PROVIDERS: PCP Internal Medicine; Visit Provider Nurse Practitioner Family
DX: R31.29 Other microscopic hematuria (principal); R39.89 Other symptoms and signs involving the genitourinary system
CPT/HCPCS: 76770

== ENCOUNTER 2023-03-07 08:22 | Outpatient (AMB) | payer OTHER, SELFPAY ==
--- NOTE | 2023-03-07 08:50 | A.OFFVIS_ITS ---
Intake Intake Visit Reasons: 3m/US(set) Intake Note: Patient is present for follow up hematuria/urgency/frequency/ultrasound (imaging 02/19/23) Urology Medications: none Blood Thinner: none PVR: 7ml's Dynamicist Required: No Accompanied by: Self / Same As Patient Allergies No Known Allergies Allergy (Verified 03/07/23 09:59) Medication List - Last Reconciled 03/07/23 by ELIN Watts-GILMER albuterol sulfate 90 mcg/actuation (ProAir HFA) 2 puffs inhalation Q4-6H PRN amlodipine 5 mg PO DAILY 90 days atorvastatin 40 mg PO BEDTIME 90 days blood pressure monitor As directed bupropion HCl (smoking deter) 150 mg PO BID 90 days cholecalciferol (vitamin D3) 25 mcg PO DAILY 90 days ibuprofen 800 mg PO TID PRN lidocaine 5% 1 appl topical BEDTIME PRN 30 days lorazepam 0.5 mg PO BID PRN 30 days losartan 100 mg PO DAILY 90 days peg 3350-electrolytes [id number] -5.86 gram 240 mL PO Q10M pyridoxine (vitamin B6) 100 mg PO DAILY 90 days HPI HPI Comments History of Present Illness Details Charlette is a very pleasant 57-year-old female patient of Dr. Isaias Cade. She presents to the office today for a follow up of her microscopic hematuria. She has a PMH of depression, fibromyalgia, anxiety, hypertension, dyslipidemia, insomnia, and GERD. Of note, patient was seen approximately 3 months ago at which time a retroperitoneal ultrasound and urine cytology were ordered for further assessment and evaluation. The patient was also started on low dose antibiotic therapy for question of interstitial cystitis. In discussion with the patient today she reports initially feeling somewhat improvement in lower abdominal/bladder pressure she had been experiencing. She reports noting over the last week symptoms have intermittently restarted. Recent retroperitoneal ultrasound results reviewed with the patient today. Right kidney with no hydronephrosis. 0.7 x 0.8 x 0.7 cm simple peripelvic cyst is seen in the lower pole. No imaging follow-up of this finding is recommended per radiology report. 0.5 x 0.3 x 0.4 cm cortical calcification in the lower pole is seen. Left kidney with no calculi, lesions, and or hydronephrosis noted. The bladder is distended and normal. Pre void bladder volume is approximately 165 mL. Postvoid bladder volume is approximately 2 mL. In office urinalysis results reviewed with the patient today. Patient continues with 2+ microscopic hematuria otherwise within normal limits. She denies incontinence, nocturia, hematuria, dysuria, foul smelling urine, changes to urinary stream, flank pain, fever, and or chills. When asked she does endorse to not drinking enough water daily. She endorses to drinking energy drinks. Discussed at length bladder triggers/irritants. Discussed further workup with in office cystoscopy versus surveillance monitoring. Discussed at length potential causes of microscopic hematuria. She otherwise denies any urinary issues or concerns at this time. [facility] Medical History Anxiety Chest pain Class 2 obesity with body mass index (BMI) of 36.0 to 36.9 in adult Class 2 obesity with body mass index (BMI) of 37.0 to 37.9 in adult Dyslipidemia Fibromyalgia GERD (gastroesophageal reflux disease) Head injury Hiatal hernia Hospital discharge follow-up HTN (hypertension) Insomnia Knee osteoarthritis Left flank pain Left knee pain Obesity (BMI 30-39.9) Pain and swelling of left lower leg Physical exam Stress bladder incontinence, female Surgical History History of bilateral tubal ligation History of breast implant History of hysterectomy History of lumpectomy of right breast Hx of abdominoplasty Family History Mother Breast cancer Alzheimer's disease Family/Other Breast cancer Social History Housing: House Alcohol intake: current Alcohol intake frequency: holidays/special occasions only Alcohol type: wine and other Patient Tobacco Use Status: Former Tobacco user Tobacco use type: Cigarette e-Cigarette/Vaping Use: Never Used Second Hand Smoke Exposure: No service: No Current occupational status: employed Current occupation: Works for the [employer] Current occupational exposures/hazards: No Sexual orientation: Straight/Heterosexual Gender identity: Female Cognitive needs: No Hearing needs: No Vision needs: No Review of Systems Const All systems reviewed & are unremarkable except as noted in HPI and below Reports as per HPI Eyes Reports no additional complaints ENT Reports no additional complaints Card Reports as per HPI Resp Reports no additional complaints GI Reports as per [facility] Reports as per [facility] Musc Reports as per [facility] Neuro Reports as per [facility] Psych Reports as per [facility] Endo Reports no additional complaints Pankaj/Lymph Reports no additional complaints Aller/Immun Reports no additional complaints Physical Exam Const General: cooperative, healthy appearing, comfortable, no acute distress, well developed, alert and awake Orientation/consciousness: patient oriented x3 Limitations: no limitations HEENT Head: Yes normal to inspection, Yes normocephalic and Yes atraumatic Ears: hearing grossly normal bilaterally Eyes General: appearance normal, both eyes and all related structures Neck Neck: Yes normal visual inspection and Yes trachea midline Chest Chest palpation & inspection: normal inspection of the chest Resp Effort & Inspection: normal respiratory effort and able to speak in complete sentences Cardio Rate: regular rate GI Inspection: Yes normal to inspection General: Yes no CVA tenderness Back/Spine/Pelvis Back: no CVA tenderness Skin General skin exam: no rashes or lesions noted Neuro General: patient oriented x3 Extrem General: Yes normal to inspection Psych Appearance: grossly normal and well kempt Mental Status: mental status grossly normal Speech and movement: Normal speech and movement present and Clear speech present Affect: normal affect Attitude: cooperative Thought process: Normal thought process present Thought content: Normal thought content present Insight: Good insight present (Psych) Judgement: Good judgement present (Psych) Office Procedures Post Void Residual Post Residual Void Post Void Residual (PVR): 7 11675-[id number] Void Residual by ultrasound Results AMB Urinalysis, Automated UA Leukoctes 0 Rod/uL Last Edit by Dilia Miller on 03/07/23 09:06 UA Nitrite Last Edit by Dilia Miller on 03/07/23 09:06 UA Urobilinogen 0.2 mg/dL Last Edit by Dilia Miller on 03/07/23 09:06 UA Protein 15 mg/dL Last Edit by Dilia Miller on 03/07/23 09:06 UA pH 6.5 Last Edit by Dilia Miller on 03/07/23 09:06 UA Blood 80 Roderick/uL Last Edit by Dilia Miller on 03/07/23 09:06 UA Specific [place] 1.015 Last Edit by Dilia Miller on 03/07/23 09:06 UA Ketone Negative Last Edit by Dilia Miller on 03/07/23 09:06 UA Bilirubin 0 mg/dL Last Edit by Dilia Miller on 03/07/23 09:06 UA Glucose 0 mg/dL Last Edit by Dilia Miller on 03/07/23 09:06 Results Reviewed Results Reviewed: Laboratory Last Values Urine pH (Auto) 6.5 03/07/23 08:51 Specific [place] (Auto) 1.015 03/07/23 08:51 Urine Protein (Auto) 15 mg/dL 03/07/23 08:51 Glucose (UA)(Auto) 0 mg/dL 03/07/23 08:51 Urine Ketones (Auto) Negative 03/07/23 08:51 Urine Blood (Auto) 80 Roderick/uL 03/07/23 08:51 Urine Bilirubin (Auto) 0 mg/dL 03/07/23 08:51 Urine Urobilinogen (Auto) 0.2 mg/dL 03/07/23 08:51 Leukocyte Esterase (Auto) 0 Rod/uL 03/07/23 08:51 Date of Service: 02/19/23 EXAMINATION: US RETROPERITONEAL COMPLETE (RENAL) CLINICAL INFORMATION: Other microscopic hematuria. COMPARISON: US abdomen complete with liver elastography 01/06/2022. Ultrasound retroperitoneal limited (renal only) 09/15/2019. CT abdomen and pelvis without contrast 03/07/2019. X-ray abdomen KUB 03/05/2019. TECHNIQUE: Real-time imaging of the kidneys and bladder. FINDINGS: RIGHT KIDNEY: 10.1 x 5.3 x 6.2 cm (SAG x AP x TRV). The kidney is normal in size, contour, and echogenicity. Renal cortical thickness is normal. No hydronephrosis. 0.7 x 0.8 x 0.7 cm simple parapelvic cyst is seen in the lower pole. No imaging follow-up of this finding is recommended. 0.5 x 0.3 x 0.4 cm. 0.5 x 0.3 x 0.4 cm cortical calcification in the lower pole is seen. LEFT KIDNEY: 10.4 x 5.9 x 5.0 cm (SAG x AP x TRV). The kidney is normal in size, contour, and echogenicity. Renal cortical thickness is normal. No calculi or focal parenchymal lesions. No hydronephrosis. BLADDER: Well distended and normal. Bilateral ureteral jets are demonstrated. Prevoid bladder volume is 166.91 mL. Postvoid bladder volume is 1.64 mL. IMPRESSION: 1.? 0.5 cm cortical calcification in the lower pole of the right kidney. 2.? Normal appearance of the left kidney. 3.? No significant post void residual. Assessment & Plan Assessment & Plan (1) Microscopic hematuria: Code(s): R31.29 - Other microscopic hematuria (2) Lower urinary tract symptoms: Code(s): R39.9 - Unspecified symptoms and signs involving the genitourinary system (3) Nephrolithiasis: Code(s): N20.0 - Calculus of kidney Plan In office urinalysis results reviewed with the patient today; as noted above. Cytology from last office visit 12/22; Negative for high-grade urothelial carcinoma. Discussed, educated, encouraged on the importance of drinking plenty of water daily. Discussed at length avoiding bladder triggers/irritants. Recent retroperitoneal ultrasound results reviewed with the patient today; as noted above. Start vitamin B6 as discussed and prescribed. Discussed adding 1 oz of lemon juice to water daily. Discussed in office cystoscopy for further assessment evaluation; however patient defers at this time Follow-up in 3 months; if not sooner with any issues, concerns, and or questions. Orders: Orders AMB Urinalysis Automated Today Z13.9 - Encounter for screening, unspecified AMB Post Void Residual by ultrasound Today R39.9 - Unspecified symptoms and signs involving the genitourinary system Medications: New pyridoxine (vitamin B6) 100 mg PO DAILY 90 days 90 tabs 3RF Patient Instructions: The patient had an opportunity to ask questions regarding the treatment plan. All questions were answered. Physical exam, labs, and imaging were discussed and reviewed in detail. As well as risks, benefits, and discussion of treatment choices. No major barriers to understanding were identified. The patient expressed understanding and agreement with the above treatment plan. The patient was made aware they should contact our office by phone for worsening of their current condition, the appearance of new symptoms, or with any questions or concerns. Compliance is encouraged with any medications and follow up testing that is ordered. It is a privilege to be allowed the opportunity to participate in? your urological care.? Again, if you have any questions or concerns If you have any questions or concerns please do not hesitate to contact me. The office is [phone]. This note is constructed using voice recognition software. While every effort has been made to ensure accuracy supervisor waterproofing errors may have been included. Yours sincerely, ELIN Watts-GILMER Coding Level of Care Code Est Pt Level 4 (33409) Diagnoses Microscopic hematuria R31.29 Lower urinary tract symptoms R39.9 Nephrolithiasis N20.0 CPT Codes Post Residual Void - PVR CPT Code: 43873-Setk Void Residual by ultrasound ([id number])
== END 2023-03-07 09:27 | disposition home or self-care (01) ==
PROVIDERS: PCP Internal Medicine; Visit Provider Nurse Practitioner Family
DX: R31.29 Other microscopic hematuria (principal); R39.9 Unspecified symptoms and signs involving the genitourinary system; N20.0 Calculus of kidney; Z13.9 Encounter for screening, unspecified
CPT/HCPCS: 99214

== ENCOUNTER → 2023-03-07 08:22 | Outpatient (BNVA) | payer OTHER, SELFPAY | PROVIDERS: PCP Internal Medicine; Visit Provider Nurse Practitioner Family | DX: R31.29 Other microscopic hematuria (principal); R39.9 Unspecified symptoms and signs involving the genitourinary system; N20.0 Calculus of kidney | CPT/HCPCS: 51798; 81003 ==

== ENCOUNTER 2023-05-11 08:08 | Day surgery (SDC) | payer OTHER, SELFPAY ==
--- NOTE | 2023-05-10 11:49 | HO.ANESPROP2 ---
Documented by User: Joy Bill NP 05/10/23 11:50 HPI - Anesthesia Eval Consult details Narrative: 58yo F for Colonoscopy s/p EGD 01/2022 with [facility] Active Problems Active Problems: All Active Problems (Updated 03/07/23 @ 19:07 by RAFITA [email or web address]) Nephrolithiasis (Acute) Lower urinary tract symptoms (Acute) Toenail fungus (Acute) Urinary frequency (Acute) Urinary urgency (Acute) Bladder pain (Acute) Microscopic hematuria (Acute) Mild major depression (Acute) Diverticulum of stomach (Acute) Hiatal hernia (Acute) Empty sella (Acute) Tachycardia (Acute) New daily persistent headache (Acute) Upper respiratory tract infection (Acute) Depressive disorder (Acute) BMI 33.0-33.9,adult (Acute) Bilateral primary osteoarthritis of knee (Acute) Lateral epicondylitis, left elbow (Acute) Fibromyalgia, primary (Acute) Left flank pain (Acute) Stress bladder incontinence, female (Acute) Polyarthralgia (Acute) Hematuria (Acute) H. pylori infection (Acute) Generalized anxiety disorder (Acute) Lump of skin (Acute) Class 2 obesity with body mass index (BMI) of 37.0 to 37.9 in adult (Acute) Chest pain (Acute) Physical exam (Acute) Acute bacterial sinusitis (Acute) Bilateral hand pain (Acute) Generalized pain (Acute) Numbness and tingling (Acute) Headache (Acute) Palpitations (Acute) Class 2 obesity with body mass index (BMI) of 36.0 to 36.9 in adult (Acute) Knee osteoarthritis (Acute) Cough (Acute) Head injury (Acute) Left knee pain (Acute) Obesity (BMI 30-39.9) (Acute) Pain and swelling of left lower leg (Acute) Hospital discharge follow-up (Acute) HTN (hypertension) (Acute) Dyslipidemia (Acute) Insomnia (Acute) Anxiety (Acute) GERD (gastroesophageal reflux disease) (Acute) Vaginal itching (Acute) Past Medical History Medical History Anxiety Chest pain Class 2 obesity with body mass index (BMI) of 36.0 to 36.9 in adult Class 2 obesity with body mass index (BMI) of 37.0 to 37.9 in adult Dyslipidemia Fibromyalgia GERD (gastroesophageal reflux disease) Head injury Hiatal hernia Hospital discharge follow-up HTN (hypertension) Insomnia Knee osteoarthritis Left flank pain Left knee pain Obesity (BMI 30-39.9) Pain and swelling of left lower leg Physical exam Stress bladder incontinence, female Family History Family History Mother Breast cancer Alzheimer's disease Family/Other Breast cancer Family history of problems with anesthesia: No Surgical History Surgical History History of bilateral tubal ligation History of breast implant History of hysterectomy History of lumpectomy of right breast Hx of abdominoplasty History of Problems with Anesthesia: No Social History Social History Housing: House Alcohol intake: current Alcohol intake frequency: holidays/special occasions only Alcohol type: wine and other Patient Tobacco Use Status: Former Tobacco user Tobacco use type: Cigarette e-Cigarette/Vaping Use: Never Used Second Hand Smoke Exposure: No service: No Current occupational status: employed Current occupation: Works for the [employer] Current occupational exposures/hazards: No Sexual orientation: Straight/Heterosexual Gender identity: Female Cognitive needs: No Hearing needs: No Vision needs: No Meds Allergies Allergy/AdvReac Type Severity Reaction Status Date / Time No Known Allergies Allergy Verified 03/07/23 09:59 Exam Exam Date and Time: May 10, 2023 1149 Assessment and Plan Assessment Anesthesia Assessment: Chart Reviewed Final Anesthetic Review Family History of Problems with Anesthesia: No History of Problems with Anesthesia: No Documented by User: Tali Shultz MD 05/11/23 10:00 [facility] Past Medical History Medical History Anxiety Chest pain Class 2 obesity with body mass index (BMI) of 36.0 to 36.9 in adult Class 2 obesity with body mass index (BMI) of 37.0 to 37.9 in adult Dyslipidemia Fibromyalgia GERD (gastroesophageal reflux disease) Head injury Hiatal hernia Hospital discharge follow-up HTN (hypertension) Insomnia Knee osteoarthritis Left flank pain Left knee pain Obesity (BMI 30-39.9) Pain and swelling of left lower leg Physical exam Stress bladder incontinence, female Family History Family History Mother Breast cancer Alzheimer's disease Family/Other Breast cancer Surgical History Surgical History History of bilateral tubal ligation History of breast implant History of hysterectomy History of lumpectomy of right breast Hx of abdominoplasty Social History Social History Housing: House Alcohol intake: current Alcohol intake frequency: holidays/special occasions only Alcohol type: wine and other Patient Tobacco Use Status: Former Tobacco user Tobacco use type: Cigarette e-Cigarette/Vaping Use: Never Used Second Hand Smoke Exposure: No service: No Current occupational status: employed Current occupation: Works for the [employer] Current occupational exposures/hazards: No Sexual orientation: Straight/Heterosexual Gender identity: Female Cognitive needs: No Hearing needs: No Vision needs: No Meds Allergies Allergy/AdvReac Type Severity Reaction Status Date / Time No Known Allergies Allergy Verified 03/07/23 09:59 Exam Airway Mallampati Class: II TM Dist: >3cm Neck ROM: Full Heart: rrr Lungs: cta Assessment and Plan Assessment Anesthesia Assessment: Anesthesia Plan Discussed Final Anesthetic Review NPO: Yes ASA Class: II Final Preanesthetic Review: No Changes in Pt Med Stat, Meds/Allgs Chart Reviewed and Consent Obtained/Reviewed Patient Risk: Intermediate Procedure Risk: Intermediate Anesthetic Plan Anesthetic Plan: MAC: Disposition: Standard PACU
--- NOTE | 2023-05-11 09:26 | MHC.SHP ---
Pre-Procedural Eval Section A Date of Service: 05/11/23 The patient is an INPATIENT: No The History & Physical has been completed within 30 days and I have reviewed it.: No Section B Chief Complaint: colon cancer screening Relevant Family History (Specify if Yes): No Relevant Social History: Tobacco Use (Former smoker) Present Medications: see Short Stay Collaborative assessment Medical History: Significant History (Chest pain Class 2 obesity with body mass index (BMI) of 36.0 to 36.9 in adult Class 2 obesity with body mass index (BMI) of 37.0 to 37.9 in adult Dyslipidemia Fibromyalgia GERD (gastroesophageal reflux disease) Head injury Hiatal hernia Hospital discharge follow-up HTN (hypertension) Insomnia Knee ) History of Previous Operations: Relevant previous surgery/procedure and date(s) (History of bilateral tubal ligation History of breast implant History of hysterectomy History of lumpectomy of right breast Hx of abdominoplasty) Allergies: Allergies Allergy/AdvReac Type Severity Reaction Status Date / Time No Known Allergies Allergy Verified 03/07/23 09:59 Review of Systems Sugical H&P ROS: Negative: Constitution, Cardiovascular, Respiratory and Gastrointestinal Exam Surgical H&P Exam: Normal: Heart, Normal: Lungs, Normal: Extremities and Normal: Abdomen Plan Diagnosis/Plan: Unchanged I have reviewed the history and physical and performed a pertinent physical examination on my patient. No changes have occurred unless specified. Time Spent With Patient Time: Total time managing care of this patient today ____ minutes.
[2023-05-11 09:53] VITALS: BMI 30.7
[2023-05-11] MEDS: Lactated Ringers 1,000 ML 100 ML IVCONT (10:07)
--- NOTE | 2023-05-11 10:14 | P.OP_ITS ---
Operative Note Operative Note Date of Service: 05/11/23 Narrative: COLONOSCOPY TILL CECUM WITH BIOPSIES, SNARE POLYPECTOMY AND SUBMUCOSAL INJECTION Pre-op diagnosis: Colon cancer screening (open access colonoscopy) Post-op diagnosis:? Colon polyps, diverticulosis, hemorrhoids Endoscopist:? Derrick Duque MD Anesthesia:?MAC Consent: Indications for the procedure and potential complications of bleeding, perforation, reaction to medications and missed diagnosis were discussed with the patient and informed consent was obtained. Instrument: Olympus PCF H 190 L variable stiffness pediatric colonoscope Monitoring: Vital signs and clinical assessment, intermittent blood pressure monitoring, continuous EKG monitoring, Pulse oximetry and Carbon Dioxide monitoring were done throughout the procedure. Please see anesthesia flowsheet. Colon withdrawl time was 15 minutes. Procedure: The patient was placed in the left lateral decubitis position and pre-procedure medications were administered. After a digital rectal examination of the ano-rectum, the video colonoscope was inserted into the rectum and advanced through the colon to the cecum. The colonoscope was slowly withdrawn in a retrograde panoramic fashion and the colon mucosa was carefully examined including a retroflexed view of the rectum. Findings and interventions are described below. Procedure Difficulty: Without difficulty Findings: Terminal Ileum: Not evaluated Cecum: A 10 - 12 mm flat polyp - raised with 3 cc of [place] and removed with a hot snare Ascending Colon: Normal Transverse Colon: A 10 mm diminutive appearing polyp - removed with a cold snare Descending Colon: Normal Sigmoid Colon: Two 5-7 mm sessile polyps - removed with cold biopsy. Severe diverticulosis with luminal narrowing Rectum: Normal Ano-rectum: Small internal hemorrhoids Colon preparation: Excellent Impression and Post Procedure Diagnosis: Colonoscopy Findings: Two small and two medium sized polyps removed Severe diverticulosis seen in the sigmoid colon Small hemorrhoids on retroflexed exam. Plan: I will send a letter with pathology results Repeat Colonoscopy interval based on path results - in 3-5 years if polyps are adenomatous and 10 years if polyps are hyperplastic. Above findings were reviewed with the patient and colon polyps and diverti culosis handouts were given in the discharge area BIOPSIES SHOWED: A. Colon, transverse, polyp: Colonic mucosa with minimal hyperplastic changes; negative for adenomatous dysplasia. B. Colon, cecal polyp: Tubular adenoma, completely excised; negative for high- grade dysplasia and carcinoma. C. Colon, sigmoid, polyp: Colonic mucosa with prominent lymphoid aggregate; negative for adenomatous dysplasia Patient placed on a 3 year recall list.
[2023-05-11 10:56] VITALS: BP 109/64; PULSE 81; RESP 16; TEMP 36.7; O2SAT 99
[2023-05-11 11:11] VITALS: BP 132/77; PULSE 77; RESP 16; TEMP 36.4; O2SAT 100
== END 2023-05-11 12:20 | disposition home or self-care (01) ==
PROVIDERS: PCP Internal Medicine; Visit Provider Internal Medicine Gastroenterology
PROC: 0DJD8ZZ Inspection of Lower Intestinal Tract, Via Natural or Artificial Opening Endoscopic (ICD-10-PCS; CPT 45378; principal; 2023-05-11 10:10)
DX: Z12.11 Encounter for screening for malignant neoplasm of colon (principal); D12.0 Benign neoplasm of cecum; K57.30 Diverticulosis of large intestine without perforation or abscess without bleeding; K64.8 Other hemorrhoids; I10 Essential (primary) hypertension; E78.5 Hyperlipidemia, unspecified; K21.9 Gastro-esophageal reflux disease without esophagitis; M79.7 Fibromyalgia; G47.00 Insomnia, unspecified; F32.0 Major depressive disorder, single episode, mild; E66.9 Obesity, unspecified; Z68.33 Body mass index [BMI] 33.0-33.9, adult; Z87.891 Personal history of nicotine dependence; Z90.710 Acquired absence of both cervix and uterus; Z79.899 Other long term (current) drug therapy; Z79.02 Long term (current) use of antithrombotics/antiplatelets
CPT/HCPCS: 45385; 45380; 45381; 88305; J2250; J2704

== ENCOUNTER → 2023-05-11 08:08 | Outpatient (BNV) | payer OTHER, SELFPAY | PROVIDERS: PCP Internal Medicine; Visit Provider Internal Medicine Gastroenterology | DX: Z12.11 Encounter for screening for malignant neoplasm of colon (principal); K63.5 Polyp of colon; K57.30 Diverticulosis of large intestine without perforation or abscess without bleeding; K64.8 Other hemorrhoids | CPT/HCPCS: 99499 ==

== ENCOUNTER 2023-06-04 08:48 | Outpatient (REF) | payer OTHER, SELFPAY ==
[2023-06-05 07:09] LABS: Urine Cytology See Pathology rpt
== END 2023-06-04 08:49 | disposition home or self-care (01) ==
LOC: HO.LNP 08:48
PROVIDERS: PCP Internal Medicine; Visit Provider Nurse Practitioner Family
DX: N20.0 Calculus of kidney (principal); R39.9 Unspecified symptoms and signs involving the genitourinary system; R31.29 Other microscopic hematuria; R39.89 Other symptoms and signs involving the genitourinary system
CPT/HCPCS: 51798; 81003; 88112

== ENCOUNTER 2023-06-04 08:48 | Outpatient (AMB) | payer OTHER, SELFPAY ==
--- NOTE | 2023-06-04 08:49 | MHC.OFFVIS ---
Intake Intake Visit Reasons: 2 month/ PVR Intake Note: Patient is present for follow up hematuria/urgency/frequency/ultrasound (imaging 02/19/23) Urology Medications: Vitamin B6 Blood Thinner: none PVR: 14ml's Director Software Required: No Accompanied by: Self / Same As Patient Allergies No Known Allergies Allergy (Verified 06/04/23 09:35) Medication List - Last Reconciled 06/04/23 by ELIN Watts- albuterol sulfate 90 mcg/actuation (ProAir HFA) 2 puffs inhalation Q4-6H PRN amlodipine 5 mg PO DAILY 90 days atorvastatin 40 mg PO BEDTIME 90 days blood pressure monitor As directed bupropion HCl (smoking deter) 150 mg PO BID 90 days cholecalciferol (vitamin D3) 25 mcg PO DAILY 90 days ibuprofen 800 mg PO TID PRN lidocaine 5% 1 appl topical BEDTIME PRN 30 days lorazepam 0.5 mg PO BID PRN 30 days losartan 100 mg PO DAILY 90 days pyridoxine (vitamin B6) 100 mg PO DAILY 90 days HPI HPI Comments History of Present Illness Details Charlette is a very pleasant 58-year-old female patient of Dr. Isaias Cade. She presents to the office today for a follow up of her microscopic hematuria. She has a PMH of depression, fibromyalgia, anxiety, hypertension, dyslipidemia, insomnia, and GERD. In discussion with the patient today she reports to be doing and feeling well. She reports noting since her last office visit here approximately 3 months ago to be having intermittent bladder pressure with episodes of urinary frequency. Discussed at length potential causes of lower urinary tract symptoms patient is reporting. Previous workup has included a retroperitoneal ultrasound noting right kidney with no hydronephrosis. 0.7 x 0.8 x 0.7 cm simple peripelvic cyst is seen in the lower pole. No imaging follow-up of this finding is recommended per radiology report. 0.5 x 0.3 x 0.4 cm cortical calcification in the lower pole is seen. Left kidney with no calculi, lesions, and or hydronephrosis noted. The bladder is distended and normal. Pre void bladder volume is approximately 165 mL. Postvoid bladder volume is approximately 2 mL. In office urinalysis results reviewed with the patient today. Patient continues with microscopic hematuria otherwise within normal limits. She denies incontinence, nocturia, hematuria, dysuria, foul smelling urine, changes to urinary stream, flank pain, fever, and or chills. When asked she does endorse to not drinking enough water daily. Discussed at length bladder triggers/irritants. Discussed further workup given recurrent microscopic hematuria and patient reporting bladder pressure with in office cystoscopy versus surveillance monitoring. However, patient does not wish to undergo an office cystoscopy at this time as she does not feel symptoms are bothersome. Discussed at length further workup regarding microscopic hematuria given patient's previous smoking history. Discussed at length potential causes of microscopic hematuria. She does discuss wanting to follow up with obgyn hospitalist physician as she has a history of a partial hysterectomy and wishes to establish care. She otherwise denies any urinary issues or concerns at this time. Previous cytology 12/22--Negative for high-grade urothelial carcinoma. [facility] Medical History Hiatal hernia Left flank pain Stress bladder incontinence, female Class 2 obesity with body mass index (BMI) of 37.0 to 37.9 in adult Chest pain Physical exam Class 2 obesity with body mass index (BMI) of 36.0 to 36.9 in adult Knee osteoarthritis Head injury Left knee pain Obesity (BMI 30-39.9) Pain and swelling of left lower leg Hospital discharge follow-up Dyslipidemia Insomnia Anxiety GERD (gastroesophageal reflux disease) Fibromyalgia HTN (hypertension) Surgical History History of hysterectomy History of lumpectomy of right breast History of breast implant History of bilateral tubal ligation Hx of abdominoplasty Family History Mother Breast cancer Alzheimer's disease Family/Other Breast cancer Social History Housing: House Alcohol intake: current Alcohol intake frequency: holidays/special occasions only Alcohol type: wine and other Patient Tobacco Use Status: Former Tobacco user Tobacco use type: Cigarette e-Cigarette/Vaping Use: Never Used Second Hand Smoke Exposure: No service: No Current occupational status: employed Current occupation: Works for the [employer] Current occupational exposures/hazards: No Sexual orientation: Straight/Heterosexual Gender identity: Female Cognitive needs: No Hearing needs: No Vision needs: No Review of Systems Const All systems reviewed & are unremarkable except as noted in HPI and below Reports as per HPI Eyes Reports no additional complaints ENT Reports no additional complaints Card Reports as per [facility] Resp Reports no additional complaints GI Reports as per HPI Reports as per [facility] Musc Reports as per [facility] Neuro Reports as per HPI Psych Reports as per HPI Endo Reports no additional complaints Pankaj/Lymph Reports no additional complaints Aller/Immun Reports no additional complaints Physical Exam Const General: cooperative, healthy appearing, comfortable, no acute distress, well developed, alert and awake Orientation/consciousness: patient oriented x3 Limitations: no limitations HEENT Head: Yes normal to inspection, Yes normocephalic and Yes atraumatic Ears: hearing grossly normal bilaterally Eyes General: appearance normal, both eyes and all related structures Neck Neck: Yes normal visual inspection and Yes trachea midline Chest Chest palpation & inspection: normal inspection of the chest Resp Effort & Inspection: normal respiratory effort and able to speak in complete sentences Cardio Rate: regular rate GI Inspection: Yes normal to inspection General: Yes no CVA tenderness Back/Spine/Pelvis Back: no CVA tenderness Skin General skin exam: no rashes or lesions noted Neuro General: patient oriented x3 Extrem General: Yes normal to inspection Psych Appearance: grossly normal and well kempt Mental Status: mental status grossly normal Speech and movement: Normal speech and movement present and Clear speech present Affect: normal affect Attitude: cooperative Thought process: Normal thought process present Thought content: Normal thought content present Insight: Good insight present (Psych) Judgement: Good judgement present (Psych) Office Procedures Post Void Residual Post Residual Void Post Void Residual (PVR): 14 [id number] Void Residual by ultrasound Results AMB Urinalysis, Automated UA Leukoctes 0 Rod/uL Last Edit by Dilia Miller on 06/04/23 09:10 UA Nitrite Negative Last Edit by Dilia Miller on 06/04/23 09:10 UA Urobilinogen 0.2 mg/dL Last Edit by Dilia Miller on 06/04/23 09:10 UA Protein 0 mg/dL Last Edit by Dilia Miller on 06/04/23 09:10 UA pH 6.5 Last Edit by Dilia Miller on 06/04/23 09:10 UA Blood 25 Roderick/uL Last Edit by Dilia Miller on 06/04/23 09:10 UA Specific [place] 1.010 Last Edit by Dilia Miller on 06/04/23 09:10 UA Ketone Negative Last Edit by Dilia Miller on 06/04/23 09:10 UA Bilirubin 0 mg/dL Last Edit by Dilia Miller on 06/04/23 09:10 UA Glucose 0 mg/dL Last Edit by Dilia Miller on 06/04/23 09:10 Results Reviewed Results Reviewed: Laboratory Last Values Urine pH (Auto) 6.5 06/04/23 08:54 Specific [place] (Auto) 1.010 06/04/23 08:54 Urine Protein (Auto) 0 mg/dL 06/04/23 08:54 Glucose (UA)(Auto) 0 mg/dL 06/04/23 08:54 Urine Ketones (Auto) Negative 06/04/23 08:54 Urine Blood (Auto) 25 Roderick/uL 06/04/23 08:54 Urine Nitrite (Auto) Negative 06/04/23 08:54 Urine Bilirubin (Auto) 0 mg/dL 06/04/23 08:54 Urine Urobilinogen (Auto) 0.2 mg/dL 06/04/23 08:54 Leukocyte Esterase (Auto) 0 Rod/uL 06/04/23 08:54 Assessment & Plan Assessment & Plan (1) Nephrolithiasis: Code(s): N20.0 - Calculus of kidney (2) Lower urinary tract symptoms: Code(s): R39.9 - Unspecified symptoms and signs involving the genitourinary system (3) Microscopic hematuria: Code(s): R31.29 - Other microscopic hematuria (4) Sensation of pressure in bladder area: Code(s): R39.89 - Other symptoms and signs involving the genitourinary system Plan In office urinalysis results reviewed with the patient today; as noted above; will send for urine cytology. Discussed at length potential causes for lower urinary tract symptoms patient is experiencing intermittently. Discussed at length further microscopic hematuria workup given urinary symptoms and previous smoking history; this was discussed at length; risks and benefits of surveillance monitoring verses further workup was discussed Will refer to obgyn hospitalist physician to establish care as requested. Discussed at length bladder triggers/irritants. Discussed near future in office cystoscopy for further assessment evaluation of microscopic hematuria verses question interstitial cystitis Discussed, stress, and encouraged to drink plenty of water daily. Follow-up in 3 months with PVR; or sooner with any issues, concerns, and or questions. Orders: Orders AMB Post Void Residual by ultrasound Today R39.9 - Unspecified symptoms and signs involving the genitourinary system AMB Urinalysis Automated Today Z13.9 - Encounter for screening, unspecified Urine Cytology Today R31.9 - Hematuria, unspecified Referrals RETAIL DEPARTMENT MANAGER Referral [id number] - Acquired absence of uterus with remaining cervical stump Patient Instructions: The patient had an opportunity to ask questions regarding the treatment plan. All questions were answered. Physical exam, labs, and imaging were discussed and reviewed in detail. As well as risks, benefits, and discussion of treatment choices. No major barriers to understanding were identified. The patient expressed understanding and agreement with the above treatment plan. The patient was made aware they should contact our office by phone for worsening of their current condition, the appearance of new symptoms, or with any questions or concerns. Compliance is encouraged with any medications and follow up testing that is ordered. It is a privilege to be allowed the opportunity to participate in? your urological care.? Again, if you have any questions or concerns If you have any questions or concerns please do not hesitate to contact me. The office is [phone]. This note is constructed using voice recognition software. While every effort has been made to ensure accuracy environmental planning engineer errors may have been included. Yours sincerely, RAFITA Watts Coding Level of Care Code Est Pt Level 3 (05026) Diagnoses Nephrolithiasis N20.0 Lower urinary tract symptoms R39.9 Microscopic hematuria R31.29 Sensation of pressure in bladder area R39.89 CPT Codes Post Residual Void - PVR CPT Code: 13293-Liab Void Residual by ultrasound ([id number])
== END 2023-06-04 09:43 | disposition home or self-care (01) ==
PROVIDERS: PCP Internal Medicine; Visit Provider Nurse Practitioner Family
DX: N20.0 Calculus of kidney (principal); R39.9 Unspecified symptoms and signs involving the genitourinary system; R31.29 Other microscopic hematuria; R39.89 Other symptoms and signs involving the genitourinary system
CPT/HCPCS: 99213

== ENCOUNTER 2023-09-05 08:25 | Outpatient (AMB) | payer OTHER, SELFPAY ==
--- NOTE | 2023-09-05 08:34 | MHC.OFFVIS ---
Intake Intake Visit Reasons: 3m/PVR Intake Note: Patient is present for follow up hematuria/urgency/frequency Urology Medications: Vitamin B6 Blood Thinner: none PVR: 39ml's Roof Painter Required: No Accompanied by: Self / Same As Patient Allergies No Known Allergies Allergy (Verified 09/05/23 21:15) Medication List - Last Reconciled 09/05/23 by RAFITA Watts albuterol sulfate 90 mcg/actuation (ProAir HFA) 2 puffs inhalation Q4-6H PRN amlodipine 5 mg PO DAILY 90 days atorvastatin 40 mg PO BEDTIME 90 days blood pressure monitor As directed bupropion HCl (smoking deter) 150 mg PO BID 90 days cholecalciferol (vitamin D3) 25 mcg PO DAILY 90 days ibuprofen 800 mg PO TID PRN lidocaine 5% 1 appl topical BEDTIME PRN 30 days lorazepam 0.5 mg PO BID PRN 30 days losartan 100 mg PO DAILY 90 days pyridoxine (vitamin B6) 100 mg PO DAILY 90 days HPI HPI Comments History of Present Illness Details Charlette is a very pleasant 58-year-old female patient of Dr. Isaias Cade. She presents to the office today for a follow up of her microscopic hematuria. She has a PMH of depression, fibromyalgia, anxiety, hypertension, dyslipidemia, insomnia, and GERD. In discussion with the patient today she reports to be doing and feeling well. She reports noting since her last office visit here approximately 3 months ago she continues with intermittent bladder pressure with episodes of urinary frequency. Discussed at length potential causes of lower urinary tract symptoms patient is reporting. Previous workup has included a retroperitoneal ultrasound noting right kidney with no hydronephrosis. 0.7 x 0.8 x 0.7 cm simple peripelvic cyst is seen in the lower pole. No imaging follow-up of this finding is recommended per radiology report. 0.5 x 0.3 x 0.4 cm cortical calcification in the lower pole is seen. Left kidney with no calculi, lesions, and or hydronephrosis noted. The bladder is distended and normal. Pre void bladder volume is approximately 165 mL. Postvoid bladder volume is approximately 2 mL. In office urinalysis results reviewed with the patient today. Patient continues with microscopic hematuria otherwise within normal limits. She denies incontinence, nocturia, hematuria, dysuria, foul smelling urine, changes to urinary stream, flank pain, fever, and or chills. When asked she does endorse to not drinking enough water daily. Discussed at length bladder triggers/irritants. She discusses having started Ozempic in attempt to lose weight. Discussed further workup given recurrent microscopic hematuria and patient with continued reports of bladder pressure to include in office cystoscopy versus surveillance monitoring. However, patient does not wish to undergo an office cystoscopy at this time as she does not feel symptoms are bothersome. Discussed at length further workup regarding microscopic hematuria given patient's previous smoking history. Discussed at length potential causes of microscopic hematuria. She discusses her upcoming appointment with assembly person as she has a history of partial hysterectomy and would like to establish care. She otherwise denies any urinary issues or concerns at this time. Previous cytology 12/22--Negative for high-grade urothelial carcinoma and 06/23--Negative for high-grade urothelial carcinoma. [facility] Medical History Hiatal hernia Left flank pain Stress bladder incontinence, female Class 2 obesity with body mass index (BMI) of 37.0 to 37.9 in adult Chest pain Physical exam Class 2 obesity with body mass index (BMI) of 36.0 to 36.9 in adult Knee osteoarthritis Head injury Left knee pain Obesity (BMI 30-39.9) Pain and swelling of left lower leg Hospital discharge follow-up Dyslipidemia Insomnia Anxiety GERD (gastroesophageal reflux disease) Fibromyalgia HTN (hypertension) Surgical History History of hysterectomy History of lumpectomy of right breast History of breast implant History of bilateral tubal ligation Hx of abdominoplasty Family History Mother Breast cancer Alzheimer's disease Family/Other Breast cancer Social History Housing: House Alcohol intake: current Alcohol intake frequency: holidays/special occasions only Alcohol type: wine and other Patient Tobacco Use Status: Former Tobacco user Tobacco use type: Cigarette e-Cigarette/Vaping Use: Never Used Second Hand Smoke Exposure: No service: No Current occupational status: employed Current occupation: Works for the [employer] Current occupational exposures/hazards: No Sexual orientation: Straight/Heterosexual Gender identity: Female Cognitive needs: No Hearing needs: No Vision needs: No Review of Systems Const All systems reviewed & are unremarkable except as noted in HPI and below Reports as per HPI Eyes Reports no additional complaints ENT Reports no additional complaints Card Reports as per HPI Resp Reports no additional complaints GI Reports as per HPI Reports as per HPI Musc Reports as per HPI Neuro Reports as per HPI Psych Reports as per HPI Endo Reports no additional complaints Pankaj/Lymph Reports no additional complaints Aller/Immun Reports no additional complaints Physical Exam Const General: cooperative, healthy appearing, comfortable, no acute distress, well developed, alert and awake Orientation/consciousness: patient oriented x3 Limitations: no limitations HEENT Head: Yes normal to inspection, Yes normocephalic and Yes atraumatic Ears: hearing grossly normal bilaterally Eyes General: appearance normal, both eyes and all related structures Neck Neck: Yes normal visual inspection and Yes trachea midline Chest Chest palpation & inspection: normal inspection of the chest Resp Effort & Inspection: normal respiratory effort and able to speak in complete sentences Cardio Rate: regular rate GI Inspection: Yes normal to inspection General: Yes no CVA tenderness Back/Spine/Pelvis Back: no CVA tenderness Skin General skin exam: no rashes or lesions noted Neuro General: patient oriented x3 Extrem General: Yes normal to inspection Psych Appearance: grossly normal and well kempt Mental Status: mental status grossly normal Speech and movement: Normal speech and movement present and Clear speech present Affect: normal affect Attitude: cooperative Thought process: Normal thought process present Thought content: Normal thought content present Insight: Good insight present (Psych) Judgement: Good judgement present (Psych) Office Procedures Post Void Residual Post Residual Void Post Void Residual (PVR): 39 [id number] Void Residual by ultrasound Results AMB Urinalysis, Automated UA Leukoctes 0 Rod/uL Last Edit by Dilia Miller on 09/05/23 08:53 UA Nitrite Negative Last Edit by ChaimHealthcareMagicsvetlana Miller on 09/05/23 08:53 UA Urobilinogen 0.2 mg/dL Last Edit by wrenchguys mobilesvetlana Miller on 09/05/23 08:53 UA Protein 15 mg/dL Last Edit by wrenchguys mobilesvetlana Miller on 09/05/23 08:53 UA pH 6.0 Last Edit by wrenchguys mobilesvetlana Miller on 09/05/23 08:53 UA Blood 80 Roderick/uL Last Edit by Brandmeche Kingquoc on 09/05/23 08:53 UA Specific [place] 1.020 Last Edit by Dilia Christinequoc on 09/05/23 08:53 UA Ketone Negative Last Edit by Chaimmeche Christinequoc on 09/05/23 08:53 UA Bilirubin 0 mg/dL Last Edit by Chaimmeche Christinequoc on 09/05/23 08:53 UA Glucose 0 mg/dL Last Edit by Dilia Christinequoc on 09/05/23 08:53 Results Reviewed Results Reviewed: Laboratory Last Values Urine pH (Auto) 6.0 09/05/23 08:41 Specific [place] (Auto) 1.020 09/05/23 08:41 Urine Protein (Auto) 15 mg/dL 09/05/23 08:41 Glucose (UA)(Auto) 0 mg/dL 09/05/23 08:41 Urine Ketones (Auto) Negative 09/05/23 08:41 Urine Blood (Auto) 80 Roderick/uL 09/05/23 08:41 Urine Nitrite (Auto) Negative 09/05/23 08:41 Urine Bilirubin (Auto) 0 mg/dL 09/05/23 08:41 Urine Urobilinogen (Auto) 0.2 mg/dL 09/05/23 08:41 Leukocyte Esterase (Auto) 0 Rod/uL 09/05/23 08:41 Assessment & Plan Assessment & Plan (1) Nephrolithiasis: Code(s): N20.0 - Calculus of kidney (2) Lower urinary tract symptoms: Code(s): R39.9 - Unspecified symptoms and signs involving the genitourinary system (3) Microscopic hematuria: Code(s): R31.29 - Other microscopic hematuria (4) Sensation of pressure in bladder area: Code(s): R39.89 - Other symptoms and signs involving the genitourinary system Plan In office urinalysis results reviewed with the patient today; as noted above. Discussed at length potential causes for lower urinary tract symptoms patient is experiencing intermittently. Discussed at length further microscopic hematuria workup given urinary symptoms and previous smoking history; this was discussed at length; risks and benefits of surveillance monitoring verses further workup was discussed Discussed at length bladder triggers/irritants. Discussed near future in office cystoscopy for further assessment evaluation of microscopic hematuria verses question interstitial cystitis; however patient would like to think about this and will continue with surveillance monitoring at this time. Discuss trial of Estrace cream. Discussed, stress, and encouraged to drink plenty of water daily. Follow-up in 3 months with PVR; or sooner with any issues, concerns, and or questions. Orders: Orders AMB Urinalysis Automated Today Z13.9 - Encounter for screening, unspecified AMB Post Void Residual by ultrasound Today R35.0 - Frequency of micturition Patient Instructions: The patient had an opportunity to ask questions regarding the treatment plan. All questions were answered. Physical exam, labs, and imaging were discussed and reviewed in detail. As well as risks, benefits, and discussion of treatment choices. No major barriers to understanding were identified. The patient expressed understanding and agreement with the above treatment plan. The patient was made aware they should contact our office by phone for worsening of their current condition, the appearance of new symptoms, or with any questions or concerns. Compliance is encouraged with any medications and follow up testing that is ordered. It is a privilege to be allowed the opportunity to participate in? your urological care.? Again, if you have any questions or concerns If you have any questions or concerns please do not hesitate to contact me. The office is [phone]. This note is constructed using voice recognition software. While every effort has been made to ensure accuracy forestry faculty member errors may have been included. Yours sincerely, RAFITA Watts Coding Level of Care Code Est Pt Level 4 (81387) Diagnoses Nephrolithiasis N20.0 Lower urinary tract symptoms R39.9 Microscopic hematuria R31.29 Sensation of pressure in bladder area R39.89 CPT Codes Post Residual Void - PVR CPT Code: 72962-Wfvw Void Residual by ultrasound ([id number]) Time Spent (min) 35
== END 2023-09-05 09:41 | disposition home or self-care (01) ==
PROVIDERS: PCP Internal Medicine; Visit Provider Nurse Practitioner Family
DX: N20.0 Calculus of kidney (principal); R39.9 Unspecified symptoms and signs involving the genitourinary system; R31.29 Other microscopic hematuria; R39.89 Other symptoms and signs involving the genitourinary system
CPT/HCPCS: 99214

== ENCOUNTER → 2023-09-05 08:25 | Outpatient (BNVA) | payer OTHER, SELFPAY | PROVIDERS: PCP Internal Medicine; Visit Provider Nurse Practitioner Family | DX: R31.29 Other microscopic hematuria (principal); N20.0 Calculus of kidney; R39.89 Other symptoms and signs involving the genitourinary system | CPT/HCPCS: 51798; 81003 ==

== ENCOUNTER 2023-10-02 07:24 | Outpatient (AMB) | payer OTHER, SELFPAY ==
--- NOTE | 2023-10-02 07:32 | A.OFFPC_ITS ---
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 Required: No Accompanied by: Self / Same As Patient Allergies No Known Allergies Allergy (Verified 10/02/23 07:50) Medication List - Last Reconciled 10/02/23 by Itzel Cade MD albuterol sulfate 90 mcg/actuation (ProAir HFA) 2 puffs inhalation Q4-6H PRN amlodipine 5 mg PO DAILY 90 days atorvastatin 40 mg PO BEDTIME 90 days blood pressure monitor As directed bupropion HCl (smoking deter) 150 mg PO BID 90 days cholecalciferol (vitamin D3) 25 mcg PO DAILY 90 days ibuprofen 800 mg PO TID PRN lidocaine 5% 1 appl topical BEDTIME PRN 30 days lorazepam 0.5 mg PO BID PRN 30 days losartan 100 mg PO DAILY 90 days pyridoxine (vitamin B6) 100 mg PO DAILY 90 days Tobacco use date assessed: 10/02/23 Dental Screening Dental Screen Date: 10/02/23 Did you have a dental visit in the last 12 months?: Yes Did you have a dental problem in the last 6 months where you did not have access to dental care?: No Was dental information given to patient?: Patient has dentist HPI HPI Comments History of Present Illness Details This is a 58-year-old female with mild major depression that comes for her physical exam. Depression has been stable with bupropion. Last mammogram was 2022. No need for Pap smear due to hysterectomy. Last colonoscopy was 2022 showing tubular adenoma and next colonoscopy will be 2025. Complains of bilateral knee pain and would like to see ortho. Also complains of occasional heartburn and I will start her on omeprazole as needed. No chest pain or shortness of breath. Occasional palpitations. Has intentionally lost weight. [facility] Medical History (Updated 10/02/23 @ 08:33 by Itzel Cade MD) Empty sella Hiatal hernia Left flank pain Stress bladder incontinence, female Class 2 obesity with body mass index (BMI) of 37.0 to 37.9 in adult Chest pain Physical exam Class 2 obesity with body mass index (BMI) of 36.0 to 36.9 in adult Knee osteoarthritis Head injury Left knee pain Obesity (BMI 30-39.9) Pain and swelling of left lower leg Hospital discharge follow-up Dyslipidemia Insomnia Anxiety GERD (gastroesophageal reflux disease) Fibromyalgia HTN (hypertension) Surgical History History of hysterectomy History of lumpectomy of right breast History of breast implant History of bilateral tubal ligation Hx of abdominoplasty Family History Mother Breast cancer Alzheimer's disease Family/Other Breast cancer Social History Housing: House Alcohol intake: current Alcohol intake frequency: holidays/special occasions only Alcohol type: wine and other Patient Tobacco Use Status: Former Tobacco user Tobacco use type: Cigarette e-Cigarette/Vaping Use: Never Used Second Hand Smoke Exposure: No service: No Current occupational status: employed Current occupation: Works for the [employer] Current occupational exposures/hazards: No Sexual orientation: Straight/Heterosexual Gender identity: Female Cognitive needs: No Hearing needs: No Vision needs: No Questionnaire PHQ-9 Over the last 2 weeks, how often have you been bothered by any of the following problems? 1. Little interest or pleasure in doing things: several days 2. Feeling down, depressed, or hopeless: more than half the days 3. Trouble falling or staying asleep, or sleeping too much: more than half the days 4. Feeling tired or having little energy: more than half the days 5. Poor appetite or overeating: several days 6. Feeling bad about yourself - or that you are a failure or have let yourself or your family down: not at all 7. Trouble concentrating on things, such as reading the newspaper or watching television: not at all 8. Moving or speaking so slowly that other people could have noticed. Or the opposite - being so fidgety or restless that you have been moving around a lot more than usual: several days 9. Thoughts that you would be better off or of hurting yourself in some way: not at all Total score: 9 Depression Screening Interpretation: Positive Depression Screening Follow-up: Existing condition and In treatment Depression Screening Done: Yes 84193 - PHQ-9 Billing: Yes Source: Developed by Drs. Marck Bruce, Anaid Ro, Timo Rosen and colleagues, with an educational annemarie from [employer]. Thrive Questionnaire Date Thrive assessed: 10/02/23 I am a: Patient What is your living situation today?: I have a steady place to live Within the past 12 months, did the food you bought not last and you didn't have the money to get more?: Never true Within the past 12 months, did you worry whether your food would run out before you got money to buy more?: Never true Do you have trouble paying for medicines?: No Do you have trouble getting transportation to medical appointments?: No Do you have trouble paying your heating and electricity bill?: No Do you have trouble taking care of your child, family member or friend?: No Do you have trouble with day-to-day activities such as bathing, preparing meals, shopping, managing finances, etc.?: No Are you currently unemployed and looking for a job?: No Are you interested in more education?: No Please select the resources that you would like help with: None Currently or been in a relationship where the following occur: no concerns reported THRIVE Score: 0 AUDIT C Alcohol Use Questionnaire (AUDIT-C) 1. How often do you have a drink containing alcohol?: Monthly or less 2. How many drinks containing alcohol do you have on a typical day when you are drinking?: 1 or 2 3. How often do you have six or more drinks on one occasion?: Never Total Score: 1 Score Reviewed/Action Taken: No SHAYLEE-7 AMB Questionnaire SHAYLEE-7 Date SHAYLEE - 7 assessed: 10/02/23 Feeling nervous, anxious, or on edge: 3 = Nearly every day Not being able to stop or control worryin = Several days Worrying too much about different things: 3 = Nearly every day Trouble relaxin = Several days Being so restless that it is hard to sit still: 0 = Not at all Becoming easily annoyed or irritable: 0 = Not at all Feeling afraid as if something awful might happen: 0 = Not at all Total SHAYLEE-7 score (0-4 normal; 5-9 mild; 10-14 moderate; 15-21 severe): 8 Source: Developed by Anaid Cartwright Jayjay, Timo Rosen and colleagues, with an educational annemarie from [employer]. SHAYLEE-7 Assessment Billing SHAYLEE-7 Assessment Tool: SHAYLEE-7 Assessment 15134 Review of Systems Const All systems reviewed & are unremarkable except as noted in HPI and below Eyes Reports no additional complaints, Denies change in vision and Denies other visual disturbances Card Denies chest pain at rest, Denies chest pain with activity, Reports rapid heart rate, Denies edema, Denies irregular heart rhythm, Denies claudication, Denies dyspnea, Denies dyspnea on exertion, Denies orthopnea, Denies paroxysmal nocturnal dyspnea and Denies slow heart rate Resp Denies cough, Denies dyspnea and Denies dyspnea on exertion GI Denies abdominal pain, Denies change in bowel habits, Denies excessive flatus, Reports heartburn, Denies nausea and Denies vomiting Denies urinary incontinence, Denies urinary hesitancy and Denies urinary urgency Musc Denies abnormal gait, Denies atrophy, Denies deformity, Reports arthralgias and Denies limited range of motion Skin/Breast Denies bleeding lesions, Denies changing lesions and Denies rash Neuro Denies abnormal gait and Denies lack of coordination Physical exam (Primary Care) Vital Signs: Last Vital Signs BP 120/72 10/02/23 07:36 BMI result Body Mass Index 30.7 Tobacco/Smoking Status: Tobacco use Status Tobacco use date assessed 10/02/23 10/02/23 07:47 Patient Tobacco Use Status Former Tobacco user 10/02/23 07:38 Tobacco use type Cigarette 10/02/23 07:38 e-Cigarette/Vaping Use Never Used 10/02/23 07:38 PHQ-9: PHQ-9 Score PHQ-9: Total score 9 10/02/23 08:00 Depression Screening Interpretation: Positive Depression Screening Follow-up: Existing condition and In treatment Thrive Assessment: Date of Thrive Assessment Date Thrive assessed 10/02/23 10/02/23 07:47 Currently or been in a relationship where the following occur: no concerns reported Const Orientation/consciousness: patient oriented x3 HENMT Head: Yes normal to inspection, Yes normocephalic and Yes atraumatic Ears: external ears normal Eyes General: appearance normal, both eyes and all related structures Eyelids: Yes eyelids normal Conjunctivae: conjunctivae normal Neck Neck: Yes normal visual inspection and Yes supple Resp Effort & Inspection: normal respiratory effort Auscultation: clear to auscultation bilaterally Cardio Jugular venous distension: no JVD Rate: regular rate Rhythm: regular rhythm Heart sounds: S1 normal heart sound present and S2 normal heart sound present GI Inspection: Yes normal to inspection Palpation (GI): Soft to palpation and nontender Auscultation: normal bowel sounds Skin General skin exam: no rashes or lesions noted Neuro General: patient oriented x3 and no focal motor deficits Extrem General: Yes full ROM Psych Appearance: grossly normal Results AMB Urinalysis, Automated UA Leukoctes 0 Rod/uL Last Edit by Simon Handley Matt on 10/02/23 07:50 UA Nitrite Negative Last Edit by Simon Handley [facility] on 10/02/23 07:50 UA Urobilinogen 0.2 mg/dL Last Edit by Simon Handley [facility] on 10/02/23 07: 50 UA Protein 0 mg/dL Last Edit by Simon Handley [facility] on 10/02/23 07:50 UA pH 6.0 Last Edit by Simon Handley [facility] on 10/02/23 07:50 UA Blood 1 Roderick/uL Last Edit by Simon Handley [facility] on 10/02/23 07:50 UA Specific [place] 1.030 Last Edit by Simon Handley [facility] on 10/02/23 07 :50 UA Ketone Negative Last Edit by Simon Handley [facility] on 10/02/23 07:50 UA Bilirubin 0 mg/dL Last Edit by Simon Handley [facility] on 10/02/23 07:50 UA Glucose 0 mg/dL Last Edit by Simon Handley [facility] on 10/02/23 07:50 Results Reviewed Results Reviewed: Laboratory Last Values Urine pH (Auto) 6.0 10/02/23 07:48 Specific [place] (Auto) 1.030 10/02/23 07:48 Urine Protein (Auto) 0 mg/dL 10/02/23 07:48 Glucose (UA)(Auto) 0 mg/dL 10/02/23 07:48 Urine Ketones (Auto) Negative 10/02/23 07:48 Urine Blood (Auto) 1 Roderick/uL 10/02/23 07:48 Urine Nitrite (Auto) Negative 10/02/23 07:48 Urine Bilirubin (Auto) 0 mg/dL 10/02/23 07:48 Urine Urobilinogen (Auto) 0.2 mg/dL 10/02/23 07:48 Leukocyte Esterase (Auto) 0 Ord/uL 10/02/23 07:48 Assessment and Plan Assessment & Plan (1) Physical exam: Code(s): Z00.00 - Encounter for general adult medical examination without abnormal findings Plan: Repeat in a year. (2) Mild major depression: Code(s): F32.0 - Major depressive disorder, single episode, mild Plan: Continue bupropion. Orders: Orders AMB Urinalysis Automated Today R82.90 - Unspecified abnormal findings in urine XR knee LT 2V Today M25.562 - Pain in left knee ECG 12 lead EKG Today R07.9 - Chest pain, unspecified Comprehensive Simpson. Panel Fast Today Z00.00 - Encounter for general adult medical examination without abnormal findings Complete Blood Count Auto Diff Today R00.2 - Palpitations XR knee RT 2V Today M25.561 - Pain in right knee Lipid Panel Today E78.5 - Hyperlipidemia, unspecified Vitamin D 25-OH Total Today E55.9 - Vitamin D deficiency, unspecified Referrals Orthopedics Referral M17.0 - Bilateral primary osteoarthritis of knee Medications: New omeprazole 20 mg PO DAILY 90 days PRN 90 caps 0RF heartburn Coding Level of Care Code Est Pt Prev Care 40-64y(23404) Diagnoses Physical exam Z00.00 Mild major depression F32.0 Additional Codes SHAYLEE-7 Assessment Billing - SHAYLEE-7 Assessment Tool: SHAYLEE-7 Assessment 03575 ([id number]) Time Spent (min) 33
[2023-10-02 07:36] VITALS: BP 120/72; BMI 30.7
== END 2023-10-02 08:05 | disposition home or self-care (01) ==
PROVIDERS: Visit Provider Internal Medicine
DX: Z00.00 Encounter for general adult medical examination without abnormal findings (principal); F33.0 Major depressive disorder, recurrent, mild; R82.90 Unspecified abnormal findings in urine; Z86.010 Personal history of colon polyps
CPT/HCPCS: 81003; 99396

== ENCOUNTER 2023-10-02 08:17 | Outpatient (REF) | payer OTHER, SELFPAY ==
--- NOTE | 2023-10-02 08:20 | ECG_ITS ---
Test Reason : chest pain Blood Pressure : / mmHG Vent. Rate : 078 BPM Atrial Rate : 078 BPM P-R Int : 192 ms QRS Dur : 070 ms QT Int : 356 ms P-R-T Axes : 062 002 023 degrees QTc Int : 405 ms Normal sinus rhythm Normal ECG When compared with ECG of 06-OCT-2021 14:40, No significant change was found Referred By: Itzel Cade Electronically Signed By:SUZY YOUNG MD
[2023-10-02 08:48] LABS: MANUAL DIFF FLAG NO
[2023-10-02 09:15] LABS: Basophils Percent Auto 0.4 % (0-2); Eosinophils Absolute Auto 0.1 X10*3/uL (0.0-0.4); Eosinophils Percent Auto 1.4 % (0-4); Hematocrit 40.7 % (37.0-47.0); Hemoglobin 13.7 g/dl (12.0-16.0); Imm Gran Abs Auto 0.03 X10*3/uL (0.00-0.03); Imm Gran Pct Auto 0.4 % (0.0-0.4); Lymphocytes Absolute Auto 2.8 X10*3/uL (1.2-4.9); Lymphocytes Percent Auto 40.4 % (20-40); Mean Corpuscular HGB Conc 33.7 g/dl (31.0-35.0); Mean Corpuscular Hemoglobin 32.2 pg (27.0-33.0); Mean Corpuscular Volume 95.8 fL (80.0-98.0); Mean Platelet Volume 10.6 fL (9.4-12.3); Monocytes Absolute Auto 0.4 X10*3/uL (0.1-1.2); Monocytes Percent Auto 6.3 % (2-11); Neutrophils Absolute Auto 3.6 x10*3/uL (2.0-8.3); Neutrophils Percent Auto 51.1 % (45-73); Platelet Count 277 X10*3/uL (160-400); Red Blood Count 4.25 X10*6/uL (4.20-5.50); Red Cell Distribution Width 11.9 % (11.0-16.0)
[2023-10-02 10:04] LABS: Alanine Aminotransferase 18 U/L (0-31); Albumin Level 4.2 g/dL (3.5-5.0); Alkaline Phosphatase 55 U/L (39-117); Anion Gap 12 (12-20); Aspartate Amino Transferase 16 U/L (5-31); Bilirubin Total 0.5 mg/dL (0.0-1.0); Blood Urea Nitrogen 14 mg/dL (9-16); Calcium 9.5 mg/dL (8.4-10.2); Carbon Dioxide 26 mmol/L (22-29); Chloride 108 mmol/L (96-108); Cholesterol 156 mg/dL (<200); Estimated Glomerular Filt Rate > 60; Glucose Fasting 91 mg/dL (60-99); HDL Cholesterol 52 mg/dL (>40); LDL Cholesterol Calculated 75 mg/dL (<100); Potassium 4.5 mmol/L (3.3-5.1); Sodium 141 mmol/L (135-145); Total Protein 6.8 g/dL (6.5-8.0); Triglycerides 147 mg/dL (<150)
[2023-10-02 10:17] LABS: Appearance Urine Clear; Color Urine Yellow; Glucose Urine UA Negative (Negative); Leukocyte Esterase Urine Negative (Negative); Nitrite Urine Negative (Negative); PH 6.5 (5.0-9.0); UMIC TRIGGER UACC YES; Urine Blood Moderate (2+) (Negative); Urine Ketones Negative (Negative); Urine Protein Negative (Neg-Trace)
[2023-10-02 10:25] LABS: Bacteria Urine None Seen (None Seen); Hyaline Casts Urine 0-2 /LPF (0-2); WBC Urine 0-5 /HPF (0-5)
== END 2023-10-02 08:18 | disposition home or self-care (01) ==
LOC: HO.LAB 08:17
PROVIDERS: PCP Internal Medicine; Visit Provider Internal Medicine
DX: Z00.00 Encounter for general adult medical examination without abnormal findings (principal); R07.9 Chest pain, unspecified; R00.2 Palpitations; E55.9 Vitamin D deficiency, unspecified; E78.5 Hyperlipidemia, unspecified
CPT/HCPCS: 36415; 80053; 80061; 81001; 81003; 82306; 85025; 93005

== ENCOUNTER → 2023-10-02 08:20 | Outpatient (BNV) | payer OTHER, SELFPAY | PROVIDERS: PCP Internal Medicine; Visit Provider Internal Medicine Cardiovascular Disease | DX: R07.9 Chest pain, unspecified (principal) | CPT/HCPCS: 93010 ==

== ENCOUNTER 2023-10-25 08:14 | Outpatient (AMB) | payer OTHER, SELFPAY ==
--- NOTE | 2023-10-25 08:23 | MHC.OFFVIS ---
Vital Signs 10/25/23 08:39 Height 5 ft 2 in Weight 177 lb BMI 32.4 BP 114/72 Intake Visit Reasons: New patient Annual Intake Note: Randomly gets cramping and fishy smell Dance Director Required: No Information Interpreted: non-clinical & clinical [employer]: [employer] Present ([place]ley[facility]) Allergies No Known Allergies Allergy (Verified 10/25/23 08:43) Is last menstrual period known: No Post menopausal: Yes Patient : No HPI Comments Details: She is a postmenopausal woman presenting for her annual obgyn specialist examination. She is doing well with no concerns. Reports right breast pain at times over a long period of time, history of implants. Admits to occasional fishy vaginal odor. Attempting to eat a healthy diet with calcium and vitamin D and stays active with exercise. Currently not sexually active Last pap smear; 2017. History of a hysterectomy due to uterine fibroids. Last mammogram; 2022. Colonoscopy is UTD. Denies any family history of ovarian or colon cancer. FH breast cancer-mom, maternal cousin. [facility] Medical History (Updated 10/02/23 @ 08:33 by Itzel Cade MD) Empty sella Hiatal hernia Left flank pain Stress bladder incontinence, female Class 2 obesity with body mass index (BMI) of 37.0 to 37.9 in adult Chest pain Physical exam Class 2 obesity with body mass index (BMI) of 36.0 to 36.9 in adult Knee osteoarthritis Head injury Left knee pain Obesity (BMI 30-39.9) Pain and swelling of left lower leg Hospital discharge follow-up Dyslipidemia Insomnia Anxiety GERD (gastroesophageal reflux disease) Fibromyalgia HTN (hypertension) Surgical History (Updated 10/25/23 @ 09:10 by Khadijah Echavarria CNM) History of hysterectomy History of lumpectomy of right breast History of breast implant History of bilateral tubal ligation Hx of abdominoplasty Family History Mother Breast cancer Alzheimer's disease Family/Other Breast cancer Social History Housing: House Alcohol intake: current Alcohol intake frequency: holidays/special occasions only Alcohol type: wine and other Patient Tobacco Use Status: Current everyday Tobacco user Tobacco use type: Cigarette Cigarettes Per Day: 4 e-Cigarette/Vaping Use: Never Used Second Hand Smoke Exposure: No service: No Current occupational status: employed Current occupation: Works for the [employer] Current occupational exposures/hazards: No Sexual orientation: Straight/Heterosexual Gender identity: Female Cognitive needs: No Hearing needs: No Vision needs: No Female Reproductive History Menstrual Age of Menarche: 8 control method: permanent sterilization Total pregnancies: 5 Full term: 3 Number of Living Children: 3 Ab spontaneous: 2 Date of last pap smear: 05/15/18 (negative) History of abnormal pap smear: Yes Date of Mammogram: 11/11/22 Review of Systems Const All systems reviewed & are unremarkable except as noted in HPI and below Reports as per HPI Eyes Reports no additional complaints ENT Reports no additional complaints Card Reports no additional complaints Resp Reports no additional complaints GI Reports as per HPI and Reports no additional complaints Reports as per HPI Musc Reports no additional complaints Skin/Breast Reports as per HPI Neuro Reports no additional complaints Psych Reports no additional complaints Endo Reports no additional complaints Pankaj/Lymph Reports no additional complaints Aller/Immun Reports no additional complaints Physical Exam Const General: cooperative, healthy appearing, no acute distress, well developed and alert Orientation/consciousness: patient oriented x3 HEENT Head: Yes normal to inspection Eyes General: appearance normal, both eyes and all related structures Neck Neck: Yes normal visual inspection Thyroid: Thyroid normal Chest Other: Bilateral implants, tenderness to the right breast at the 7 to 8 o'clock position Chest palpation & inspection: normal inspection of the chest and other (no puckering, dimpling, peau de orange, retraction, discharge, masses) Breast/axilla inspection: normal inspection of the breasts Breast/axilla palpation: normal palpation of the breasts Resp Effort & Inspection: normal respiratory effort GI Inspection: Yes normal to inspection Palpation (GI): Soft to palpation Rectal Exam - Female: deferred General: Yes bladder normal to palpation External Female Exam: normal external appearance and normal appearance of the urethra Speculum Exam - Vagina: normal appearance of the vagina, normal palpation and normal vaginal discharge Speculum Exam - Cervix: normal appearance of the cervix and Cervix absent (Vaginal cuff no lesions or nodules) Bimanual exam- vagina & uterus: normal bimanual exam, normal palpation, bladder normal to palpation and uterus absent Bimanual Exam- Adnexa, other: no masses Skin General skin exam: no rashes or lesions noted Rashes: no rashes Neuro General: patient oriented x3 Cognition (Neuro): normal cognition Extrem General: Yes normal to inspection Psych Attitude: cooperative Thought process: Normal thought process present Assessment & Plan Assessment & Plan (1) Encounter for well woman exam with routine gynecological exam: Code(s): Z01.419 - Encounter for gynecological examination (general) (routine) without abnormal findings (2) Pain of right breast: Code(s): N64.4 - Mastodynia (3) Pelvic cramping: Code(s): R10.2 - Pelvic and perineal pain Plan Discussed: Current recommendations for pap smears per ASCCP guidelines. Breast awareness, periodic self breast exams and yearly mammogram. Maintain a healthy lifestyle, well balanced diet including Calcium 1,200 mg and Vitamin D 600 IU daily, and routine exercise. BV panel sent plan pelvic ultrasound. And also workup for breast pain with right breast ultrasound, and diagnostic bilateral mammogram. Advised follow up appointment in person to discuss test results. Encouraged to sign up for the patient portal. Offered STD blood work patient declines. Patient verbalizes understanding and agrees to the plan of care. She was given opportunity to ask questions and all questions were answered to the best of my ability. RTO in 1 year for annual obgyn specialist exam. This note is constructed using voice recognition software. While every effort has been made to ensure accuracy, rn primary care errors may have been included. Orders: Orders US breast RT complete Today N64.4 - Mastodynia MM tomosynthesis diag imp BI Today N64.4 - Mastodynia US pelvic and transvaginal Today R10.2 - Pelvic and perineal pain Coding Level of Care Code New Pt Prev Care 40-64y(75841) Diagnoses Encounter for well woman exam with routine gynecological exam Z01.419 Pain of right breast N64.4 Pelvic cramping R10.2
[2023-10-25 08:39] VITALS: BP 114/72; BMI 32.4
== END 2023-10-25 09:08 | disposition home or self-care (01) ==
LOC: HO.HWS 08:14
PROVIDERS: PCP Internal Medicine; Visit Provider Advanced Practice Midwife
DX: Z01.419 Encounter for gynecological examination (general) (routine) without abnormal findings (principal); N64.4 Mastodynia; R10.2 Pelvic and perineal pain
CPT/HCPCS: 99386

== ENCOUNTER 2023-10-25 08:14 | Outpatient (REF) | payer OTHER, SELFPAY ==
[2023-10-26 12:49] LABS: BV Int Neg Control Negative (Negative); BV Int Pos Control Positive (Positive)
== END 2023-10-25 08:15 | disposition home or self-care (01) ==
LOC: HO.LNP 08:14
PROVIDERS: PCP Internal Medicine; Visit Provider Advanced Practice Midwife
DX: N89.8 Other specified noninflammatory disorders of vagina (principal)
CPT/HCPCS: 87480; 87510; 87660

== ENCOUNTER 2023-11-09 12:54 | Outpatient (REF) | payer OTHER, SELFPAY ==
--- NOTE | ~2023-11-09 | US_ITS ---
EXAMINATION: MM DIAGNOSTIC DIGITAL BREAST TOMOSYNTHESIS, BILATERAL CLINICAL INFORMATION: Bilateral screening. Also, patient complaining of right breast pain 7-8:00 position. No palpable focus of concern. Bilateral silicone implants 2010. Breast cancer in mother in her 40's. COMPARISON: Mammography: 11/11/2022, 07/09/2021, 06/15/2020, 02/05/2019 TECHNIQUE: Digital mammography is performed in craniocaudal and mediolateral oblique views. Digital breast tomosynthesis is performed in implant-displaced craniocaudal and implant-displaced mediolateral oblique views. Synthesized 2D images are generated from the tomosynthesis. Computer-aided detection (CAD) is performed for this exam. In addition a new implant displaced 3-D right ML view was obtained. FINDINGS: There are scattered areas of fibroglandular density (ACR BI-RADS breast composition Category b). The implant contours are unremarkable. There are no suspicious masses, suspicious grouped calcifications, or areas of architectural distortion in either breast. The parenchymal pattern is stable from prior exams. No abnormality mammographically is evident in the region of right breast pain, 7-8:00 position. No axillary or skin abnormalities. ULTRASOUND: CLINICAL INFORMATION: Right breast pain 7-8 o'clock axis. COMPARISON: None TECHNIQUE: Targeted sonographic evaluation was performed using a high frequency linear transducer. Attention was given to the region of right breast pain spanning the 7-8:00 position. Selected archived documentation. FINDINGS: RIGHT BREAST: There is a mixture of fatty and fibroglandular tissue. No suspicious mass is seen. There is no pathologic acoustic shadowing. There is no implant abnormality. No sonographic abnormality is present in the right breast 7-8:00 axis in the region of breast pain as indicated by the patient. US/US breast RT limited mamm only IMPRESSION: There are no findings suspicious for malignancy in either breast. There is no correlate sonographically or mammographically to the region of breast pain right breast 7-8:00 axis. Recommend clinical management. No implant abnormality is identified. Otherwise, recommend the patient return to routine annual screening. OVERALL ASSESSMENT: Mammography: BI-RADS 1 - Negative Ultrasound: BI-RADS 1 - Negative RECOMMENDATION: 1. Patient should be managed based on the clinical impression. 2. Otherwise, routine annual screening mammography. This patient's information was entered into a reminder system with a target due date for their next mammogram.
== END 2023-11-09 12:55 | disposition home or self-care (01) ==
LOC: HO.MAMMO 12:54
PROVIDERS: PCP Internal Medicine; Visit Provider Advanced Practice Midwife
DX: N64.4 Mastodynia (principal)
CPT/HCPCS: 76642; 77062; 77066

== ENCOUNTER → 2023-11-09 13:00 | Outpatient (BNV) | payer OTHER, SELFPAY | PROVIDERS: PCP Internal Medicine; Visit Provider Radiology Diagnostic Radiology | DX: N64.4 Mastodynia (principal) | CPT/HCPCS: 76642; 77062; 77066 ==

== ENCOUNTER 2023-11-12 15:26 | Outpatient (REF) | payer OTHER, SELFPAY ==
--- NOTE | ~2023-11-12 | US_ITS ---
EXAMINATION: US PELVIS CLINICAL INFORMATION: Pelvic pain. History of hysterectomy and tubal ligation. COMPARISON: None available. TECHNIQUE: Ultrasound of the pelvis is performed using both transabdominal and transvaginal transducers along with Doppler. Transvaginal imaging is performed due to inadequate visualization transabdominally. FINDINGS: Uterus: Uterus is surgically absent. No free pelvic fluid. No large adnexal US/US pelvic and transvaginal mass visualized. Bilateral ovaries are not visualized. IMPRESSION: Status post hysterectomy. No acute findings.
== END 2023-11-12 15:27 | disposition home or self-care (01) ==
LOC: HO.US 15:26
PROVIDERS: PCP Internal Medicine; Visit Provider Advanced Practice Midwife
DX: R10.2 Pelvic and perineal pain (principal)
CPT/HCPCS: 76830; 76856

== ENCOUNTER 2023-12-12 11:18 | Outpatient (AMB) | payer OTHER, SELFPAY ==
[2023-12-12 11:25] VITALS: BP 118/76; BMI 32.4
--- NOTE | 2023-12-12 11:25 | MHC.OFFVIS ---
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 History of hysterectomy due to fibroids. She reports some fishy odor vaginal dryness today. She was positive for bacterial vaginosis at her last exam but opted not to take any treatment at the time due to not really feeling any of her symptoms. She declines physical exam is today. [facility] Medical History Empty sella Hiatal hernia Left flank pain Stress bladder incontinence, female Class 2 obesity with body mass index (BMI) of 37.0 to 37.9 in adult Chest pain Physical exam Class 2 obesity with body mass index (BMI) of 36.0 to 36.9 in adult Knee osteoarthritis Head injury Left knee pain Obesity (BMI 30-39.9) Pain and swelling of left lower leg Hospital discharge follow-up Dyslipidemia Insomnia Anxiety GERD (gastroesophageal reflux disease) Fibromyalgia HTN (hypertension) Surgical History History of hysterectomy History of lumpectomy of right breast History of breast implant History of bilateral tubal ligation Hx of abdominoplasty Family History Mother Breast cancer Alzheimer's disease Family/Other Breast cancer Social History Housing: House Alcohol intake: current Alcohol intake frequency: holidays/special occasions only Alcohol type: wine and other Patient Tobacco Use Status: Current everyday Tobacco user Tobacco use type: Cigarette Cigarettes Per Day: 4 e-Cigarette/Vaping Use: Never Used Second Hand Smoke Exposure: No service: No Current occupational status: employed Current occupation: Works for the [employer] Current occupational exposures/hazards: No Sexual orientation: Straight/Heterosexual Gender identity: Female Cognitive needs: No Hearing needs: No Vision needs: No Female Reproductive History Menstrual Age of Menarche: 8 control method: permanent sterilization Date of last pap smear: 05/15/18 (negative) Review of Systems Const All systems reviewed & are unremarkable except as noted in HPI and below Endo Reports no additional complaints Physical Exam Vital Signs: Last Vital Signs BP 118/76 12/12/23 11:25 BMI result Body Mass Index 32.4 Const General: cooperative, healthy appearing and no acute distress Psych Appearance: well kempt Attitude: cooperative Thought process: Normal thought process present Results Reviewed Results Reviewed: [address] [address] Ultrasound Report Signed Patient: Charlette Flores MR#: [id number] : 1965 Acct:[id number] Age/Sex: 58 / F ADM Date: 11/12/23 Loc: HO.US Attending Dr: Khadijah Echavarria CNM Ordering Physician: Khadijah Echavarria CNM Date of Service: 11/12/23 Procedure(s): US pelvic and transvaginal Accession Number(s): [id number] cc: Khadijah Echavarria CNM; Itzel Coles MD~ EXAMINATION: US PELVIS CLINICAL INFORMATION: Pelvic pain. History of hysterectomy and tubal ligation. COMPARISON: None available. TECHNIQUE: Ultrasound of the pelvis is performed using both transabdominal and transvaginal transducers along with Doppler. Transvaginal imaging is performed due to inadequate visualization transabdominally. FINDINGS: Uterus: Uterus is surgically absent. No free pelvic fluid. No large adnexal US/US pelvic and transvaginal mass visualized. Bilateral ovaries are not visualized. IMPRESSION: Status post hysterectomy. No acute findings. 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: Assessment & Plan Assessment & Plan (1) Pelvic pain: Code(s): R10.2 - Pelvic and perineal pain Category: Medical (2) Vaginal odor: Code(s): N89.8 - Other specified noninflammatory disorders of vagina (3) Vaginal dryness: Code(s): N89.8 - Other specified noninflammatory disorders of vagina (4) Encounter to discuss test results: Code(s): Z71.2 - Person consulting for explanation of examination or test findings Plan Discussed: Pelvic ultrasound findings did not see the ovaries, breast evaluation mammogram and ultrasound did not reveal any findings (both BI-RADS 1), associated with the pain she was experiencing. Advised if pain returns to let me know so that I can have her follow up and also to consider a referral at that time to see the breast surgeons. Pelvic ultrasound inconclusive with limitations and not being able to see the ovaries plan MRI for further information in diagnostics. Treat for BV she opts to try Metrogel. Rx to be sent in, counseled regarding the nature of BV, that we could do nothing it would could resolve on its own only to reoccur on its own. Vaginal dryness I recommend she try Replens moisturizer twice a week, advised to quit take up to 12 weeks to see the benefits, she can purchase this [id number]. MRI will need to be prior authorized before booking the appointment, 1 scheduled she will be given appointment in the office for a follow up to review the results in person. All of her questions and concerns were addressed to the best of my ability and shared decision making. She is agreeable to the plan of care. This note is constructed using voice recognition software. While every effort has been made to ensure accuracy, collection technician errors may have been included. Orders: Orders MR pelvis wo/w con Today R10.2 - Pelvic and perineal pain Medications: New metronidazole 0.75%(37.5mg/5gram) 1 appful vaginal DAILY 70 grams 0RF 5 days Coding Level of Care Code Est Pt Level 3 (08292) Diagnoses Pelvic pain R10.2 Vaginal odor N89.8 Vaginal dryness N89.8 Encounter to discuss test results Z71.2
== END 2023-12-12 13:24 | disposition home or self-care (01) ==
PROVIDERS: PCP Internal Medicine; Visit Provider Advanced Practice Midwife
DX: R10.2 Pelvic and perineal pain (principal); N89.8 Other specified noninflammatory disorders of vagina; Z71.2 Person consulting for explanation of examination or test findings
CPT/HCPCS: 99213

== ENCOUNTER → 2023-12-12 11:18 | Outpatient (BNVA) | payer OTHER, SELFPAY | PROVIDERS: PCP Internal Medicine; Visit Provider Advanced Practice Midwife ==

== ENCOUNTER 2024-01-31 14:48 | Outpatient (REF) | payer OTHER, SELFPAY ==
--- NOTE | ~2024-01-31 | MR_ITS ---
EXAMINATION: MRI PELVIS WITH AND WITHOUT CONTRAST CLINICAL INFORMATION: R10.2 - Pelvic and perineal pain COMPARISON: No pertinent priors currently available. TECHNIQUE: Multiple routine MRI sequences through the pelvis were obtained on a high-field 1.5 Madelin MRI before and after the uneventful administration of 8.5 mL of Gadavist gadolinium-based IV contrast. FINDINGS: UTERUS: Surgically absent. Postsurgical susceptibility artifact in the hysterectomy bed. CERVIX: Surgically absent. VAGINA: Normal; no mass seen. Vaginal cuff unremarkable with expected postoperative susceptibility artifact.. Ovaries: Not definitively identified. No suspicious adnexal lesions are identified. KIDNEYS: Two normally positioned kidneys are seen. Scattered bilateral renal cysts for which no dedicated follow-up imaging is required. No hydronephrosis. BLADDER: Urinary bladder normal. PELVIC FREE FLUID: No free fluid or ascites. LYMPH NODES: No pathologically enlarged lymph nodes. OSSEOUS STRUCTURES: No acute or suspicious osseous abnormalities. Other: Transverse ventral lower abdominal wall postsurgical scarring with scattered susceptibility artifact. MR/MR pelvis wo/w con IMPRESSION: Status post hysterectomy without MR findings to explain pelvic/perineal pain Electronically signed by: Jac Matos MD 03/04/2024 02:12 PM EDT
[2024-01-31] MEDS: gadobutroL 10 ML VIAL IVPUSH (17:00)
== END 2024-01-31 14:49 | disposition home or self-care (01) ==
LOC: HO.MRI 14:48
PROVIDERS: PCP Internal Medicine; Visit Provider Advanced Practice Midwife
DX: R10.2 Pelvic and perineal pain (principal)
CPT/HCPCS: 72197; A9585

== ENCOUNTER 2024-02-21 13:15 | Outpatient (REF) | payer OTHER, SELFPAY ==
[2024-02-21 13:55] LABS: Appearance Urine Clear; Color Urine Yellow; Glucose Urine UA Negative (Negative); Leukocyte Esterase Urine Negative (Negative); Nitrite Urine Negative (Negative); Specific Gravity - Urine <= 1.005 (1.005-1.025); UMIC TRIGGER UACC YES; Urine Blood Small (1+) (Negative); Urine Ketones Negative (Negative); Urine Protein Negative (Neg-Trace)
[2024-02-21 13:57] LABS: Bacteria Urine None Seen (None Seen); Hyaline Casts Urine 0-2 /LPF (0-2); Squamous Epithelial Cell Urine 0-2 /HPF (0-2); WBC Urine 0-5 /HPF (0-5)
== END 2024-02-21 13:16 | disposition home or self-care (01) ==
LOC: HO.LAB 13:15
PROVIDERS: PCP Internal Medicine; Visit Provider Internal Medicine
DX: R30.0 Dysuria (principal)
CPT/HCPCS: 81001

== ENCOUNTER 2024-03-04 07:44 | Outpatient (AMB) | payer OTHER, SELFPAY ==
--- NOTE | 2024-03-04 07:46 | A.OFFPC_ITS ---
Vital Signs 03/04/24 07:47 Height 5 ft 2 in Weight 182 lb BMI 33.3 BP 130/70 Blood Pressure Location Lt brachial Position Sitting Intake Visit Reasons: bp needs 30 min. 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: No Accompanied by: Self / Same As Patient Allergies No Known Allergies Allergy (Verified 03/04/24 08:08) Medication List - Last Reconciled 03/04/24 by Itzel Cade MD albuterol sulfate 90 mcg/actuation (ProAir HFA) 2 puffs inhalation Q4-6H PRN amlodipine 5 mg PO DAILY 90 days atorvastatin 40 mg PO BEDTIME 90 days blood pressure monitor As directed bupropion HCl (smoking deter) 150 mg PO BID 90 days cholecalciferol (vitamin D3) 25 mcg PO DAILY 90 days ibuprofen 800 mg PO TID PRN lidocaine 5% 1 appl topical BEDTIME PRN 30 days lorazepam 0.5 mg PO BID PRN 30 days losartan 100 mg PO DAILY 90 days metronidazole 0.75%(37.5mg/5gram) 1 appful vaginal DAILY 5 days omeprazole 20 mg PO DAILY PRN 90 days pyridoxine (vitamin B6) 100 mg PO DAILY 90 days Tobacco use date assessed: 10/02/23 Dental Screening Dental Screen Date: 10/02/23 HPI HPI Comments History of Present Illness Details This is a 58-year-old female with mild major depression, generalized an xiety disorder, hypertension and dyslipidemia as well as obesity that comes today for follow-up on her conditions. Blood pressure stable with medications. Cholesterol well controlled with statins. Has some depression and has been out of bupropion for awhile. Anxiety stable with benzodiazepines as needed and patient is aware that benzodiazepines can cause sedation and memory loss and I do not recommend to drive while taking benzodiazepines. She is obese with a BMI of 33.3 and complains of tiredness and diffuse joint pain. Due to her cardiovascular risk factors such as hypertension and dyslipidemia I will start her on Wegovy. She also complains of bilateral knee pain and would like to see ortho for this matter. [facility] Medical History (Updated 03/04/24 @ 08:39 by Itzel Cade MD) Empty sella Hiatal hernia Left flank pain Stress bladder incontinence, female Class 2 obesity with body mass index (BMI) of 37.0 to 37.9 in adult Chest pain Physical exam Class 2 obesity with body mass index (BMI) of 36.0 to 36.9 in adult Knee osteoarthritis Head injury Left knee pain Obesity (BMI 30-39.9) Pain and swelling of left lower leg Hospital discharge follow-up Dyslipidemia Insomnia Anxiety GERD (gastroesophageal reflux disease) Fibromyalgia HTN (hypertension) Surgical History History of hysterectomy History of lumpectomy of right breast History of breast implant History of bilateral tubal ligation Hx of abdominoplasty Family History Mother Breast cancer Alzheimer's disease Family/Other Breast cancer Social History Housing: House Alcohol intake: current Alcohol intake frequency: holidays/special occasions only Alcohol type: wine and other Patient Tobacco Use Status: Current everyday Tobacco user Tobacco use type: Cigarette Cigarettes Per Day: 4 e-Cigarette/Vaping Use: Never Used Second Hand Smoke Exposure: No service: No Current occupational status: employed Current occupation: Works for the [employer] Current occupational exposures/hazards: No Sexual orientation: Straight/Heterosexual Gender identity: Female Cognitive needs: No Hearing needs: No Vision needs: No Female Reproductive History Menstrual Age of Menarche: 8 Questionnaire Thrive Questionnaire Date Thrive assessed: 10/02/23 SHAYLEE-7 AMB Questionnaire SHAYLEE-7 Date SHAYLEE - 7 assessed: 10/02/23 Source: Developed by Drs. Marck Bruce, Anaid Ro, Timo Rosen and colleagues, with an educational annemarie from [employer]. Review of Systems Const All systems reviewed & are unremarkable except as noted in HPI and below Reports lethargy Card Denies chest pain at rest, Denies chest pain with activity, Denies edema, Denies irregular heart rhythm, Denies claudication, Denies dyspnea, Denies dyspnea on exertion, Denies orthopnea, Denies paroxysmal nocturnal dyspnea and Denies slow heart rate Resp Denies cough, Denies dyspnea and Denies dyspnea on exertion Musc Reports arthralgias Neuro Denies behavioral changes and Denies lack of coordination Psych Denies behavioral changes Physical exam (Primary Care) Vital Signs: Last Vital Signs BP 130/70 03/04/24 07:47 BMI result Body Mass Index 33.3 BMI Assessment/Plan discussion: High BMI High, discussed plan: lifestyle, weight reduction, dietary and physical activity Tobacco/Smoking Status: Tobacco use Status Tobacco use date assessed 10/02/23 03/04/24 07:49 Patient Tobacco Use Status Current everyday Tobacco 03/04/24 07:49 Tobacco use type Cigarette 03/04/24 07:49 e-Cigarette/Vaping Use Never Used 03/04/24 07:49 Are you ready to quit: Yes Tobacco cessation counseling provided: Yes Items discussed: QuitWorks Relapse Prevention: discussed the importance of a supportive environment, discussed negative mood or depression after quitting, weight gain after smoking is common and discussed dietary, exercise and/or lifestyle changes Number of minutes spent counselin CPT code: 66870 - 4-10 Minutes Thrive Assessment: Date of Thrive Assessment Date Thrive assessed 10/02/23 03/04/24 07:49 Resp Effort & Inspection: normal respiratory effort Auscultation: clear to auscultation bilaterally Cardio Jugular venous distension: no JVD Rate: regular rate Rhythm: regular rhythm Heart sounds: S1 normal heart sound present and S2 normal heart sound present Extrem General: Yes full ROM Assessment and Plan Assessment & Plan (1) Mild major depression: Code(s): F32.0 - Major depressive disorder, single episode, mild Plan: Restart bupropion. (2) HTN (hypertension): Code(s): I10 - Essential (primary) hypertension Qualifiers: Hypertension type: essential hypertension Qualified Code(s): I10 - Essential (primary) hypertension Plan: Continue losartan and amlodipine. Blood pressure goal is equal or less than 130/80. (3) Dyslipidemia: Code(s): E78.5 - Hyperlipidemia, unspecified Plan: Continue statins. (4) SHAYLEE (generalized anxiety disorder): Code(s): F41.1 - Generalized anxiety disorder Plan: Continue benzodiazepines as needed. (5) BMI 33.0-33.9,adult: Code(s): Z68.33 - Body mass index [BMI] 33.0-33.9, adult Plan: Start Wegovy. (6) Left knee pain: Code(s): M25.562 - Pain in left knee Qualifiers: Chronicity: chronic Qualified Code(s): M25.562 - Pain in left knee; G89.29 - Other chronic pain Plan: X-ray ordered. Referred to Ortho. (7) Right knee pain: Code(s): M25.561 - Pain in right knee Qualifiers: Chronicity: chronic Qualified Code(s): M25.561 - Pain in right knee; G89.29 - Other chronic pain Plan: X-ray ordered. Referred to Ortho. Orders: Orders XR knee RT 2V Today M25.561 - Pain in right knee XR knee LT 2V Today M25.562 - Pain in left knee Referrals Orthopedics Referral M25.561 - Pain in right knee, M25.562 - Pain in left knee Medications: New semaglutide (weight loss) (Wegovy) administer weeks 1 through 4 of therapy 0.25 mg (0.5 mL) subcut QWEEK 4 weeks 2 mL 0RF E66.9 - Obesity, unspecified, E78.5 - Hyperlipidemia, unspecified, I10 - Essential (primary) hypertension Refilled bupropion HCl (smoking deter) 150 mg PO BID 90 days 180 tabs 0RF lorazepam 0.5 mg PO BID 30 days PRN 60 tabs 0RF anxiety I10 - Essential (primary) hypertension Coding Level of Care Code Est Pt Level 4 (16100) Complex EM visit Add On G2211 Diagnoses Mild major depression F32.0 Essential hypertension I10 Hypertension type: essential hypertension Dyslipidemia E78.5 SHAYLEE (generalized anxiety disorder) F41.1 BMI 33.0-33.9,adult Z68.33 Chronic pain of left knee M25.562; G89.29 Chronicity: chronic Chronic pain of right knee M25.561; G89.29 Chronicity: chronic Additional Codes Vital Signs *Quality* - CPT code: 20033 - 4-10 Minutes ([id number]) Time Spent (min) 25
[2024-03-04 07:47] VITALS: BP 130/70; BMI 33.3
== END 2024-03-04 08:59 | disposition home or self-care (01) ==
PROVIDERS: PCP Internal Medicine; Visit Provider Internal Medicine
DX: F32.0 Major depressive disorder, single episode, mild (principal); I10 Essential (primary) hypertension; E78.5 Hyperlipidemia, unspecified; F41.1 Generalized anxiety disorder; Z68.33 Body mass index [BMI] 33.0-33.9, adult; M25.562 Pain in left knee; G89.29 Other chronic pain; M25.561 Pain in right knee
CPT/HCPCS: 99214; 99406

== ENCOUNTER 2024-03-26 10:09 | Outpatient (AMB) | payer OTHER, SELFPAY ==
--- NOTE | 2024-03-26 10:10 | MHC.OFFVIS ---
Vital Signs 03/26/24 10:16 BP 124/84 Intake Visit Reasons: MRI results De Alcholizer: De Alcholizer Present Allergies No Known Allergies Allergy (Verified 03/04/24 08:08) Is last menstrual period known: Yes HPI Comments Details: Patient is here today for a follow up MRI, history of right-sided throbbing pelvic pain, now less once in a while . History of a hysterectomy due to fibroids. [facility] Medical History Empty sella Hiatal hernia Left flank pain Stress bladder incontinence, female Class 2 obesity with body mass index (BMI) of 37.0 to 37.9 in adult Chest pain Physical exam Class 2 obesity with body mass index (BMI) of 36.0 to 36.9 in adult Knee osteoarthritis Head injury Left knee pain Obesity (BMI 30-39.9) Pain and swelling of left lower leg Hospital discharge follow-up Dyslipidemia Insomnia Anxiety GERD (gastroesophageal reflux disease) Fibromyalgia HTN (hypertension) Surgical History History of hysterectomy History of lumpectomy of right breast History of breast implant History of bilateral tubal ligation Hx of abdominoplasty Family History Mother Breast cancer Alzheimer's disease Family/Other Breast cancer Social History Housing: House Alcohol intake: current Alcohol intake frequency: holidays/special occasions only Alcohol type: wine and other Patient Tobacco Use Status: Current everyday Tobacco user Tobacco use type: Cigarette Cigarettes Per Day: 4 e-Cigarette/Vaping Use: Never Used Second Hand Smoke Exposure: No service: No Current occupational status: employed Current occupation: Works for the [employer] Current occupational exposures/hazards: No Sexual orientation: Straight/Heterosexual Gender identity: Female Cognitive needs: No Hearing needs: No Vision needs: No Female Reproductive History Menstrual Age of Menarche: 8 Review of Systems Const All systems reviewed & are unremarkable except as noted in HPI and below Endo Reports no additional complaints Physical Exam Const General: cooperative, healthy appearing and no acute distress Psych Appearance: well kempt Attitude: cooperative Thought process: Normal thought process present Results Reviewed Results Reviewed: [address] [address] Magnetic Resonance Report Signed Patient: Charlette Flores MR#: [id number] : 1965 Acct:[id number] Age/Sex: 58 / F ADM Date: 01/31/24 Loc: HO.MRI Attending Dr: Khadijah Echavarria CNM Ordering Physician: Khadijah Echavarria CNM Date of Service: 01/31/24 Procedure(s): MR pelvis wo/w con Accession Number(s): [id number] cc: Khadijah Echavarria CNM; Itzel Coles MD~ EXAMINATION: MRI PELVIS WITH AND WITHOUT CONTRAST CLINICAL INFORMATION: R10.2 - Pelvic and perineal pain COMPARISON: No pertinent priors currently available. TECHNIQUE: Multiple routine MRI sequences through the pelvis were obtained on a high-field 1.5 Madelin MRI before and after the uneventful administration of 8.5 mL of Gadavist gadolinium-based IV contrast. FINDINGS: UTERUS: Surgically absent. Postsurgical susceptibility artifact in the hysterectomy bed. CERVIX: Surgically absent. VAGINA: Normal; no mass seen. Vaginal cuff unremarkable with expected postoperative susceptibility artifact.. Ovaries: Not definitively identified. No suspicious adnexal lesions are identified. KIDNEYS: Two normally positioned kidneys are seen. Scattered bilateral renal cysts for which no dedicated follow-up imaging is required. No hydronephrosis. BLADDER: Urinary bladder normal. PELVIC FREE FLUID: No free fluid or ascites. LYMPH NODES: No pathologically enlarged lymph nodes. OSSEOUS STRUCTURES: No acute or suspicious osseous abnormalities. Other: Transverse ventral lower abdominal wall postsurgical scarring with scattered susceptibility artifact. 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 No obvious valve machine operator causes for the occasional throbbing discomfort, possible other causes may not be valve machine operator origin. Advised to follow up with her primary care for further evaluation. Annual exam scheduled for 10/19/2024. All of her questions and concerns were addressed to the best of my ability and shared decision making. She is agreeable to the plan of care. This note is constructed using voice recognition software. While every effort has been made to ensure accuracy, greenstone polisher operator errors may have been included. Coding Level of Care Code Est Pt Level 3 (49329) Diagnoses Encounter to discuss test results Z71.2
[2024-03-26 10:16] VITALS: BP 124/84
== END 2024-03-26 11:31 | disposition home or self-care (01) ==
PROVIDERS: PCP Internal Medicine; Visit Provider Advanced Practice Midwife
DX: Z71.2 Person consulting for explanation of examination or test findings (principal)
CPT/HCPCS: 99213

== ENCOUNTER → 2024-03-26 10:09 | Outpatient (BNVA) | payer OTHER, SELFPAY | PROVIDERS: PCP Internal Medicine; Visit Provider Advanced Practice Midwife ==

== ENCOUNTER 2024-03-31 08:36 | Outpatient (AMB) | payer OTHER, SELFPAY ==
[2024-03-31 08:38] VITALS: BMI 33.3
--- NOTE | 2024-03-31 08:38 | MHC.OFFVIS ---
Vital Signs 03/31/24 08:38 Height 5 ft 2 in Weight 182 lb BMI 33.3 Intake Visit Reasons: OV- B/L knee pain Intake Note: Reinaldo is a 58 year old female who presents today for a follow up of her bilateral knee OA. Patient declined injections at her last visit in January however, she is willing to discuss injections today. Patient states her bilateral knee pain has worsened since our last visit in January,. She has been using Biofreeze for pain with relief. Allergies No Known Allergies Allergy (Verified 03/31/24 08:39) HPI HPI OV- B/L knee pain: Details: Reinaldo is a 58 year old female who presents today for a follow up of her bilateral knee OA. Patient declined injections at her last visit in January however, she is willing to discuss injections today. Patient states her bilateral knee pain has worsened since our last visit in January,. She has been using Biofreeze for pain with relief. She describes an inability to walk comfortably throughout the day. Pain is worse with activity and at night. [facility] Medical History Empty sella Hiatal hernia Left flank pain Stress bladder incontinence, female Class 2 obesity with body mass index (BMI) of 37.0 to 37.9 in adult Chest pain Physical exam Class 2 obesity with body mass index (BMI) of 36.0 to 36.9 in adult Knee osteoarthritis Head injury Left knee pain Obesity (BMI 30-39.9) Pain and swelling of left lower leg Hospital discharge follow-up Dyslipidemia Insomnia Anxiety GERD (gastroesophageal reflux disease) Fibromyalgia HTN (hypertension) Surgical History History of hysterectomy History of lumpectomy of right breast History of breast implant History of bilateral tubal ligation Hx of abdominoplasty Family History Mother Breast cancer Alzheimer's disease Family/Other Breast cancer Social History Housing: House Alcohol intake: current Alcohol intake frequency: holidays/special occasions only Alcohol type: wine and other Patient Tobacco Use Status: Current everyday Tobacco user Tobacco use type: Cigarette Cigarettes Per Day: 4 e-Cigarette/Vaping Use: Never Used Second Hand Smoke Exposure: No service: No Current occupational status: employed Current occupation: Works for the [employer] Current occupational exposures/hazards: No Sexual orientation: Straight/Heterosexual Gender identity: Female Cognitive needs: No Hearing needs: No Vision needs: No Female Reproductive History Menstrual Age of Menarche: 8 Physical Exam Vital Signs: BMI result Body Mass Index 33.3 Extrem Other: Left knee with tenderness to palpation over the medial joint line. Results Reviewed Results Reviewed: I personally reviewed relevant radiographs. Varus pattern bilateral knee osteoarthritis right worse than left Assessment & Plan Assessment & Plan (1) Bilateral primary osteoarthritis of knee: Code(s): M17.0 - Bilateral primary osteoarthritis of knee Category: Medical Plan: This is a 58-year-old woman with severe osteoarthritis bilateral knees. Her daily life is compromised but she is pretty hesitant to undergo treatment. I injected her left knee today. She will follow up p.r.n.. Coding Level of Care Code Est Pt Level 3 (56619) Diagnoses Bilateral primary osteoarthritis of knee M17.0
== END 2024-03-31 09:13 | disposition home or self-care (01) ==
PROVIDERS: PCP Internal Medicine; Visit Provider Orthopaedic Surgery
DX: M17.0 Bilateral primary osteoarthritis of knee (principal)
CPT/HCPCS: 20610; 99213

== ENCOUNTER → 2024-03-31 08:36 | Outpatient (BNVA) | payer OTHER, SELFPAY | PROVIDERS: PCP Internal Medicine; Visit Provider Orthopaedic Surgery | DX: M17.0 Bilateral primary osteoarthritis of knee (principal) | CPT/HCPCS: 20610; J0665; J1100 ==

== ENCOUNTER 2024-04-07 11:03 | Outpatient (AMB) | payer OTHER, SELFPAY ==
[2024-04-07 11:10] VITALS: BP 122/90; PULSE 86; O2SAT 98
--- NOTE | 2024-04-07 11:10 | MHC.PC.OV ---
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: No Allergies No Known Allergies Allergy (Verified 04/07/24 11:10) Medication List - Last Reconciled 04/07/24 by Sintia Gonzalez PA-C albuterol sulfate 90 mcg/actuation (ProAir HFA) 2 puffs inhalation Q4-6H PRN amlodipine 5 mg PO DAILY 90 days atorvastatin 40 mg PO BEDTIME 90 days blood pressure monitor As directed bupropion HCl (smoking deter) 150 mg PO BID 90 days cholecalciferol (vitamin D3) 25 mcg PO DAILY 90 days ibuprofen 800 mg PO TID PRN lidocaine 5% 1 appl topical BEDTIME PRN 30 days lorazepam 0.5 mg PO BID PRN 30 days losartan 100 mg PO DAILY 90 days metronidazole 0.75%(37.5mg/5gram) 1 appful vaginal DAILY 5 days omeprazole 20 mg PO DAILY PRN 90 days pyridoxine (vitamin B6) 100 mg PO DAILY 90 days semaglutide (weight loss) (Wegovy) 0.25 mg (0.5 mL) subcut QWEEK 4 weeks tirzepatide (weight loss) (Zepbound) 2.5 mg (0.5 mL) subcut QWEEK Tobacco use date assessed: 10/02/23 Dental Screening Dental Screen Date: 10/02/23 HPI Discuss MRI results HPI Details 59-year-old female with past medical history of depression, generalized anxiety disorder, hypertension, dyslipidemia and obesity last seen by Dr. Esparza coming in for review of MRI results. In review of the notes, patient was seen by Gynecology 03/26/2024 for review MRI results and advised to follow up with primary care regarding renal cyst. Pelvis MRI completed 01/31/2024 showing: Status post hysterectomy without MRI findings to explain pelvic/perineal pain and scattered bilateral renal cyst with no follow up imaging recommended. Patient continues to have occasional right lower quadrant throbbing pain which has been ongoing for several months and has not changed or worsened. The pain in the in right lower quadrant/pelvic area. The pain will occasionally wake her from sleep. she uses Ibuprofen for her pain and has a history of fibromyalgia. [facility] Medical History Empty sella Hiatal hernia Left flank pain Stress bladder incontinence, female Class 2 obesity with body mass index (BMI) of 37.0 to 37.9 in adult Chest pain Physical exam Class 2 obesity with body mass index (BMI) of 36.0 to 36.9 in adult Knee osteoarthritis Head injury Left knee pain Obesity (BMI 30-39.9) Pain and swelling of left lower leg Hospital discharge follow-up Dyslipidemia Insomnia Anxiety GERD (gastroesophageal reflux disease) Fibromyalgia HTN (hypertension) Surgical History History of hysterectomy History of lumpectomy of right breast History of breast implant History of bilateral tubal ligation Hx of abdominoplasty Family History Mother Breast cancer Alzheimer's disease Family/Other Breast cancer Social History Housing: House Alcohol intake: current Alcohol intake frequency: holidays/special occasions only Alcohol type: wine and other Patient Tobacco Use Status: Current everyday Tobacco user Tobacco use type: Cigarette Cigarettes Per Day: 4 e-Cigarette/Vaping Use: Never Used Second Hand Smoke Exposure: No service: No Current occupational status: employed Current occupation: Works for the [employer] Current occupational exposures/hazards: No Sexual orientation: Straight/Heterosexual Gender identity: Female Cognitive needs: No Hearing needs: No Vision needs: No Female Reproductive History Menstrual Age of Menarche: 8 Questionnaire Thrive Questionnaire Date Thrive assessed: 10/02/23 Are you currently unemployed and looking for a job?: Yes AUDIT C Alcohol Use Questionnaire (AUDIT-C) 1. How often do you have a drink containing alcohol?: Monthly or less 2. How many drinks containing alcohol do you have on a typical day when you are drinking?: 1 or 2 3. How often do you have six or more drinks on one occasion?: Never Total Score: 1 Score Reviewed/Action Taken: No SHAYLEE-7 AMB Questionnaire SHAYLEE-7 Date SHAYLEE - 7 assessed: 10/02/23 Source: Developed by Drs. Marck Bruce, Anaid Ro, Timo Rosen and colleagues, with an educational annemarie from [employer]. Review of Systems Const Denies body aches, Denies chills and Denies fever(s) ENT Reports no additional complaints Card Denies chest pain, Denies leg edema and Denies dyspnea Resp Denies dyspnea GI Denies abdominal pain, Denies constipation, Denies diarrhea, Denies nausea and Denies vomiting Details: Left lower pelvic pain Denies dysuria, Denies urinary hesitancy and Denies urinary urgency Skin/Breast Reports system reviewed and no additional complaints, except as documented Physical exam (Primary Care) Vital Signs: Oxygen Delivery Method Room Air 04/07/24 11:10 Tobacco/Smoking Status: Tobacco use Status Tobacco use date assessed 10/02/23 04/07/24 11:13 Patient Tobacco Use Status Current everyday Tobacco 04/07/24 11:13 Tobacco use type Cigarette 04/07/24 11:13 e-Cigarette/Vaping Use Never Used 04/07/24 11:13 Thrive Assessment: Date of Thrive Assessment Date Thrive assessed 10/02/23 04/07/24 11:13 Const General: cooperative, healthy appearing, comfortable and no acute distress Orientation/consciousness: patient oriented x3 HENMT Head: Yes normocephalic Ears: hearing grossly normal bilaterally General nose exam: Normal external nose present Eyes General: appearance normal, both eyes and all related structures Conjunctivae: conjunctivae normal Neck Neck: Yes full ROM and Yes no lymphadenopathy Resp Effort & Inspection: normal respiratory effort Auscultation: clear to auscultation bilaterally, no crackles, no rales, no rhonchi and no wheezes Cardio Rate: regular rate Rhythm: regular rhythm GI Palpation (GI): Soft to palpation, not firm, Tenderness to palpation present (GI) in the RLQ, no guarding, not rigid, no masses and No Rebound tenderness present Auscultation: normal bowel sounds General: Yes no CVA tenderness Back/Spine/Pelvis Back: no CVA tenderness Skin General skin exam: no rashes or lesions noted Neuro General: patient oriented x3 Gait exam (Neuro): Normal gait present Extrem General: Yes normal to inspection, Yes full ROM and No edema Psych Affect: normal affect Attitude: cooperative Insight: Good insight present (Psych) Judgement: Good judgement present (Psych) Coding Level of Care Code Est Pt Level 3 (86340) Diagnoses SHAYLEE (generalized anxiety disorder) F41.1 Pelvic pain R10.2 Assessment & Plan Assessment & Plan (1) SHAYLEE (generalized anxiety disorder): Code(s): F41.1 - Generalized anxiety disorder Category: Medical Plan: Continue on current medication. (2) Pelvic pain: Code(s): R10.2 - Pelvic and perineal pain Category: Medical Plan: Patient continues to have throbbing right lower quadrant/pelvic pain. MRI and ultrasound are both negative for source of pelvic/perineal pain. Patient was cleared by Gynecology and refer back to PCP for further investigation of this pain. Ordered for inflammatory markers for further investigation and advised patient to continue to monitor her pain. Given muscle relaxer for nighttime pain as it will occasionally wake her up. Plan This note was constructed using voice recognition software. While every effort has been made to ensure accuracy and director systems, still areas may have been included sometimes these areas may affect the content or meeting of the given symptoms. Total time spent caring for the patient today was 30 minutes. This includes time spent before the visit reviewing the chart, time spent during the visit, and time spent after the visit and documentation. Orders: Orders C Reactive Protein Today R10.2 - Pelvic and perineal pain Erythrocyte Sedimentation Rate Today R10.2 - Pelvic and perineal pain Medications: New cyclobenzaprine 5 mg PO BEDTIME PRN 30 tabs 0RF muscle spasm
== END 2024-04-07 11:57 | disposition home or self-care (01) ==
PROVIDERS: PCP Internal Medicine
DX: F41.1 Generalized anxiety disorder (principal); R10.2 Pelvic and perineal pain

== ENCOUNTER → 2024-04-07 11:03 | Outpatient (BNVA) | payer OTHER, SELFPAY | PROVIDERS: PCP Internal Medicine ==

== ENCOUNTER 2024-04-09 07:32 | Outpatient (AMB) | payer OTHER, SELFPAY ==
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
== END 2024-04-09 08:29 | disposition home or self-care (01) ==
PROVIDERS: PCP Internal Medicine; Visit Provider Nurse Practitioner Family
DX: R31.29 Other microscopic hematuria (principal); R39.89 Other symptoms and signs involving the genitourinary system; N20.0 Calculus of kidney; R39.9 Unspecified symptoms and signs involving the genitourinary system; R35.0 Frequency of micturition; R39.15 Urgency of urination; Z13.9 Encounter for screening, unspecified
CPT/HCPCS: 99213

== ENCOUNTER 2024-04-09 07:32 | Outpatient (REF) | payer OTHER, SELFPAY ==
[2024-04-09 16:42] LABS: Urine Cytology See Pathology rpt
== END 2024-04-09 07:33 | disposition home or self-care (01) ==
LOC: HO.LNP 07:32
PROVIDERS: PCP Internal Medicine; Visit Provider Nurse Practitioner Family
DX: R31.29 Other microscopic hematuria (principal); R39.89 Other symptoms and signs involving the genitourinary system; N20.0 Calculus of kidney; R39.9 Unspecified symptoms and signs involving the genitourinary system; R35.0 Frequency of micturition; R39.15 Urgency of urination
CPT/HCPCS: 51798; 81003; 88112

== ENCOUNTER 2024-06-30 13:59 | Outpatient (AMB) | payer OTHER, SELFPAY ==
--- NOTE | 2024-06-30 14:07 | A.OFFPC_ITS ---
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 Accompanied by: Self / Same As Patient Allergies No Known Allergies Allergy (Verified 06/30/24 14:24) Medication List - Last Reconciled 06/30/24 by Itzel Cade MD albuterol sulfate 90 mcg/actuation (ProAir HFA) 2 puffs inhalation Q4-6H PRN amlodipine 5 mg PO DAILY 90 days atorvastatin 40 mg PO BEDTIME 90 days blood pressure monitor As directed bupropion HCl (smoking deter) 150 mg PO BID 90 days cholecalciferol (vitamin D3) 25 mcg PO DAILY 90 days cyclobenzaprine 5 mg PO BEDTIME PRN ibuprofen 800 mg PO TID PRN lidocaine 5% 1 appl topical BEDTIME PRN 30 days lorazepam 0.5 mg PO BID PRN 30 days losartan 100 mg PO DAILY 90 days metronidazole 0.75%(37.5mg/5gram) 1 appful vaginal DAILY 5 days omeprazole 20 mg PO DAILY PRN 90 days pyridoxine (vitamin B6) 100 mg PO DAILY 90 days tirzepatide (weight loss) (Zepbound) 5 mg (0.5 mL) subcut QWEEK 4 weeks Tobacco use date assessed: 10/02/23 Dental Screening Dental Screen Date: 10/02/23 HPI HPI Comments History of Present Illness Details The patient is a 59-year-old female presenting for follow-up on her chronic conditions such as hypertension, mild recurrent major depression, asthma and dyslipidemia. She has a history of anxiety and uses lorazepam as needed. The patient denies any allergies to medications. She also reports nocturia, frequent urination during the night, and occasional tachycardia that resolves with her current medication. There is a history of hypertension for which she takes losartan and amlodipine. The patient also reports experiencing acid reflux and uses esomeprazole. The tachycardia was managed with medication adjustments, and there have been several cardiac assessments in the past, with satisfactory results noted by the patient. Additional medications include ibuprofen for pain relief and a vitamin, possibly Vitamin D. The patient continues to manage her anxiety and reflux with current medications. She is obese and has lost weight with diet and Zepbound. Reports no side effects from the medication and this is why I will increase the medication. No chest pain or shortness on breath. [facility] Medical History Empty sella Hiatal hernia Left flank pain Stress bladder incontinence, female Class 2 obesity with body mass index (BMI) of 37.0 to 37.9 in adult Chest pain Physical exam Class 2 obesity with body mass index (BMI) of 36.0 to 36.9 in adult Knee osteoarthritis Head injury Left knee pain Obesity (BMI 30-39.9) Pain and swelling of left lower leg Hospital discharge follow-up Dyslipidemia Insomnia Anxiety GERD (gastroesophageal reflux disease) Fibromyalgia HTN (hypertension) Surgical History History of hysterectomy History of lumpectomy of right breast History of breast implant History of bilateral tubal ligation Hx of abdominoplasty Family History Mother Breast cancer Alzheimer's disease Family/Other Breast cancer Social History (Updated 06/30/24 @ 14:30 by Itzel Cade MD) Housing: House Alcohol intake: current Alcohol intake frequency: holidays/special occasions only Alcohol type: wine and other Patient Tobacco Use Status: Former Tobacco user Tobacco use type: Cigarette Cigarettes Per Day: 4 e-Cigarette/Vaping Use: Never Used Second Hand Smoke Exposure: No service: No Current occupational status: employed Current occupation: Works for the [employer] Current occupational exposures/hazards: No Sexual orientation: Straight/Heterosexual Gender identity: Female Cognitive needs: No Hearing needs: No Vision needs: No Female Reproductive History Menstrual Age of Menarche: 8 Questionnaire Thrive Questionnaire Date Thrive assessed: 10/02/23 Are you currently unemployed and looking for a job?: Yes SHAYLEE-7 AMB Questionnaire SHAYLEE-7 Date SHAYLEE - 7 assessed: 10/02/23 Source: Developed by Drs. Marck Bruce, Anaid Ro, Timo Rosen and colleagues, with an educational annemarie from [employer]. Review of Systems Const Details: - Cardiovascular: Reports tachycardia. - Genitourinary: Reports nocturia. - Gastrointestinal: Reports acid reflux. Physical exam (Primary Care) Vital Signs: Last Vital Signs BP 112/80 06/30/24 14:08 BMI result Body Mass Index 31.5 BMI Assessment/Plan discussion: High BMI High, discussed plan: lifestyle, weight reduction, dietary and physical activity Tobacco/Smoking Status: Tobacco use Status Tobacco use date assessed 10/02/23 06/30/24 14:16 Patient Tobacco Use Status Former Tobacco user 06/30/24 14:30 Tobacco use type Cigarette 06/30/24 14:30 e-Cigarette/Vaping Use Never Used 06/30/24 14:30 Thrive Assessment: Date of Thrive Assessment Date Thrive assessed 10/02/23 06/30/24 14:16 Const Other: General: No confusion Respiratory: Normal respiratory effort, clear to auscultation bilaterally Cardiovascular: No jugular venous distension, regular rate, regular rhythm, S1 normal heart sound present and S2 normal heart sound present Neurology: Patient oriented x3, no focal motor deficits and No confusion Extremities: Full ROM Office Procedures Flu Questionnaire Does the patient have a severe egg allergy?: No Results AMB Urinalysis, Automated UA Leukoctes 0 Rod/uL Last Edit by Simon Handley [facility] on 06/30/24 14:20 UA Nitrite Negative Last Edit by Simon Handley, [facility] on 06/30/24 14:20 UA Urobilinogen 0.2 mg/dL Last Edit by Simon Handley [facility] on 06/30/24 14: 20 UA Protein 0 mg/dL Last Edit by Simon Handley [facility] on 06/30/24 14:20 UA pH 6.0 Last Edit by Simon Handley [facility] on 06/30/24 14:20 UA Blood 2 Roderick/uL Last Edit by Simon Handley, [facility] on 06/30/24 14:20 UA Specific [place] 1.020 Last Edit by Simon Handley, [facility] on 06/30/24 14 :20 UA Ketone Negative Last Edit by Simon Handley [facility] on 06/30/24 14:20 UA Bilirubin 0 mg/dL Last Edit by Simon Handley, [facility] on 06/30/24 14:20 UA Glucose 0 mg/dL Last Edit by Simon Handley [facility] on 06/30/24 14:20 Immunizations Fluarix Triv [id number] (PF) 45 mcg (15 mcg x 3)/0.5 mL IM syringe Performing Provider: Itzel Cade MD [facility] Documented (not given) by: LATESHA Garrido on 06/30/24 14:50 Reason Not Given: Patient Refused Results Reviewed Results Reviewed: Laboratory Last Values Urine pH (Auto) 6.0 06/30/24 14:17 Specific [place] (Auto) 1.020 06/30/24 14:17 Urine Protein (Auto) 0 mg/dL 06/30/24 14:17 Glucose (UA)(Auto) 0 mg/dL 06/30/24 14:17 Urine Ketones (Auto) Negative 06/30/24 14:17 Urine Blood (Auto) 2 Roderick/uL 06/30/24 14:17 Urine Nitrite (Auto) Negative 06/30/24 14:17 Urine Bilirubin (Auto) 0 mg/dL 06/30/24 14:17 Urine Urobilinogen (Auto) 0.2 mg/dL 06/30/24 14:17 Leukocyte Esterase (Auto) 0 Rod/uL 06/30/24 14:17 Coding Level of Care Code Est Pt Level 4 (21120) Complex EM visit Add On G2211 Diagnoses Mild major depression F32.0 SHAYLEE (generalized anxiety disorder) F41.1 Essential hypertension I10 Hypertension type: essential hypertension Dyslipidemia E78.5 Gastroesophageal reflux disease, unspecified whether esophagitis present K21.9 Esophagitis presence: esophagitis presence not specified Time Spent (min) 23 Assessment & Plan Assessment & Plan (1) Mild major depression: Code(s): F32.0 - Major depressive disorder, single episode, mild Category: Medical (2) SHAYLEE (generalized anxiety disorder): Code(s): F41.1 - Generalized anxiety disorder Category: Medical (3) HTN (hypertension): Code(s): I10 - Essential (primary) hypertension Category: Medical Qualifiers: Hypertension type: essential hypertension Qualified Code(s): I10 - Essential (primary) hypertension (4) Dyslipidemia: Code(s): E78.5 - Hyperlipidemia, unspecified Category: Medical (5) GERD (gastroesophageal reflux disease): Code(s): K21.9 - Gastro-esophageal reflux disease without esophagitis Category: Medical Qualifiers: Esophagitis presence: esophagitis presence not specified Qualified Code(s): K21.9 - Gastro-esophageal reflux disease without esophagitis Plan - Maintain current hypertension management with losartan and amlodipine. - Continue esomeprazole for acid reflux management. - Patient advised to monitor urinary frequency; consider further evaluation if symptoms persist. - Refill ibuprofen as needed for pain relief. - Vitamin intake to be maintained as per current regimen. Patient was informed and verbally consented to the use of an ambient scribe for clinic note documentation during this visit. During the visit, we reviewed the patient's current management plan and proposed medication adjustments to manage her anxiety more effectively. The potential for increased side effects with a higher CEPAM dosage was discussed. We also reviewed her medication regimen for hypertension and acid reflux, and the importance of maintaining these treatments was emphasized. I advised the patient that her nocturia and tachycardia would continue to be monitored, with further evaluation if these symptoms significantly affect her quality of life. Orders: Orders Lipid Panel 4 Months E78.5 - Hyperlipidemia, unspecified Influenza [id number] Immunization Today Z23 - Encounter for immunization AMB Urinalysis Automated Today R82.90 - Unspecified abnormal findings in urine Vitamin D 25-OH Total 4 Months E55.9 - Vitamin D deficiency, unspecified Comprehensive [place]. Panel Fast 4 Months I10 - Essential (primary) hypertension Medications: New tirzepatide (weight loss) (Zepbound) 7.5 mg (0.5 mL) subcut QWEEK 2 mL 0RF 4 weeks E66.9 - Obesity, unspecified, Z68.37 - Body mass index [BMI] 37.0-37.9, adult Refilled pyridoxine (vitamin B6) 100 mg PO DAILY 90 tabs 3RF 90 days Discontinued tirzepatide (weight loss) (Zepbound) Discontinued Reason: Patient Completed Course 5 mg (0.5 mL) subcut QWEEK 4 weeks 2 mL 0RF Z68.33 - Body mass index [BMI] 33.0-33.9, adult Patient Instructions: - Continue current medication regimen for anxiety, hypertension, and acid reflux. - Monitor any changes in urinary frequency or heart rate, and report significant changes. - Take ibuprofen as needed for pain, ensuring availability of refills. - Continue vitamin intake as discussed. - Return for follow-up as advised or if symptoms worsen.
[2024-06-30 14:08] VITALS: BP 112/80; BMI 31.5
== END 2024-06-30 14:40 | disposition home or self-care (01) ==
PROVIDERS: PCP Internal Medicine; Visit Provider Internal Medicine
DX: F32.0 Major depressive disorder, single episode, mild (principal); F41.1 Generalized anxiety disorder; I10 Essential (primary) hypertension; E78.5 Hyperlipidemia, unspecified; K21.9 Gastro-esophageal reflux disease without esophagitis; R82.90 Unspecified abnormal findings in urine; Z23 Encounter for immunization

== ENCOUNTER → 2024-06-30 13:59 | Outpatient (BNVA) | payer OTHER, SELFPAY | PROVIDERS: PCP Internal Medicine; Visit Provider Internal Medicine | DX: F32.0 Major depressive disorder, single episode, mild (principal); F41.1 Generalized anxiety disorder; I10 Essential (primary) hypertension; E78.5 Hyperlipidemia, unspecified; K21.9 Gastro-esophageal reflux disease without esophagitis; Z79.899 Other long term (current) drug therapy; Z28.21 Immunization not carried out because of patient refusal | CPT/HCPCS: 81003; 90471 ==

== ENCOUNTER 2024-10-08 07:31 | Outpatient (AMB) | payer OTHER, SELFPAY ==
[2024-10-08 07:36] VITALS: BP 112/76; PULSE 94; RESP 18; TEMP 36.4; O2SAT 98; BMI 28.2
--- NOTE | 2024-10-08 07:36 | A.OFFPC_ITS ---
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 Induction Required: No Accompanied by: Self / Same As Patient Allergies No Known Allergies Allergy (Verified 10/08/24 07:36) Medication List - Last Reconciled 10/08/24 by Itzel Cade MD albuterol sulfate 90 mcg/actuation 2 puffs inhalation Q4-6H PRN amlodipine 5 mg PO DAILY 90 days atorvastatin 40 mg PO BEDTIME 90 days blood pressure monitor As directed bupropion HCl (smoking deter) 150 mg PO BID 90 days cholecalciferol (vitamin D3) 25 mcg PO DAILY 90 days cyclobenzaprine 5 mg PO BEDTIME PRN fluticasone propionate 50 mcg/actuation (Flonase Allergy Relief) 1 spray intranasal DAILY 30 days ibuprofen 800 mg PO TID PRN lidocaine 5% 1 appl topical BEDTIME PRN 30 days lorazepam 0.5 mg PO BID PRN 30 days losartan 100 mg PO DAILY 90 days omeprazole 20 mg PO DAILY PRN 90 days pyridoxine (vitamin B6) 100 mg PO DAILY 90 days tirzepatide (weight loss) (Zepbound) 7.5 mg (0.5 mL) subcut QWEEK 4 weeks Tobacco use date assessed: 10/08/24 Dental Screening Dental Screen Date: 10/08/24 Did you have a dental visit in the last 12 months?: Yes Did you have a dental problem in the last 6 months where you did not have access to dental care?: No Was dental information given to patient?: Patient has dentist HPI HPI Comments History of Present Illness Details This is a 59-year-old female with mild major depression that comes for her physical exam. Needs Tdap vaccine. History of hysterectomy therefore no need for Pap smears. Will order mammogram for this year. Depression stable with bupropion. She has significantly lost weight with Zepbound with no side effects. Colonoscopy done 2022 showing tubular adenoma next colonoscopy should be 2025. [facility] Medical History Empty sella Hiatal hernia Left flank pain Stress bladder incontinence, female Class 2 obesity with body mass index (BMI) of 37.0 to 37.9 in adult Chest pain Physical exam Class 2 obesity with body mass index (BMI) of 36.0 to 36.9 in adult Knee osteoarthritis Head injury Left knee pain Obesity (BMI 30-39.9) Pain and swelling of left lower leg Hospital discharge follow-up Dyslipidemia Insomnia Anxiety GERD (gastroesophageal reflux disease) Fibromyalgia HTN (hypertension) Surgical History History of hysterectomy History of lumpectomy of right breast History of breast implant History of bilateral tubal ligation Hx of abdominoplasty Family History (Updated 10/08/24 @ 08:02 by Itzel Cade MD) Mother Breast cancer Alzheimer's disease Family/Other Breast cancer Father Myocardial infarction Social History (Updated 10/08/24 @ 08:03 by Itzel Cade MD) Housing: House Alcohol intake: former Patient Tobacco Use Status: Former Tobacco user Tobacco use type: Cigarette Cigarettes Per Day: 4 e-Cigarette/Vaping Use: Never Used Second Hand Smoke Exposure: No service: No Current occupational status: employed Current occupation: Works for the [employer] Current occupational exposures/hazards: No Sexual orientation: Straight/Heterosexual Gender identity: Female Cognitive needs: No Hearing needs: No Vision needs: Yes (Glasses) Female Reproductive History Menstrual Age of Menarche: 8 Questionnaire PHQ-9 Over the last 2 weeks, how often have you been bothered by any of the following problems? 1. Little interest or pleasure in doing things: nearly every day 2. Feeling down, depressed, or hopeless: not at all 3. Trouble falling or staying asleep, or sleeping too much: nearly every day 4. Feeling tired or having little energy: several days 5. Poor appetite or overeating: not at all 6. Feeling bad about yourself - or that you are a failure or have let yourself or your family down: not at all 7. Trouble concentrating on things, such as reading the newspaper or watching television: not at all 8. Moving or speaking so slowly that other people could have noticed. Or the opposite - being so fidgety or restless that you have been moving around a lot more than usual: not at all 9. Thoughts that you would be better off or of hurting yourself in some way: not at all Total score: 7 Depression Screening Interpretation: Positive Depression Screening Follow-up: Existing condition, In treatment and Follow-up Visit Requested Depression Screening Done: Yes 38574 - PHQ-9 Billing: Yes Source: Developed by Drs. Marck Bruce, Anaid Ro, Timo Rosen and colleagues, with an educational annemarie from [employer]. Thrive Questionnaire Date Thrive assessed: 10/08/24 I am a: Patient What is your living situation today?: I have a steady place to live Within the past 12 months, did the food you bought not last and you didn't have the money to get more?: I choose not to answer this question Within the past 12 months, did you worry whether your food would run out before you got money to buy more?: I choose not to answer this question Do you have trouble paying for medicines?: I choose not to answer this question Do you have trouble getting transportation to medical appointments?: No Do you have trouble paying your heating and electricity bill?: Yes Do you have trouble taking care of your child, family member or friend?: No Do you have trouble with day-to-day activities such as bathing, preparing meals, shopping, managing finances, etc.?: I choose not to answer this question Are you currently unemployed and looking for a job?: Yes Are you interested in more education?: I choose not to answer this question Please select the resources that you would like help with: None Currently or been in a relationship where the following occur: I choose not to answer THRIVE Score: 1 AUDIT C Alcohol Use Questionnaire (AUDIT-C) 1. How often do you have a drink containing alcohol?: Never Total Score: 0 Score Reviewed/Action Taken: No SHAYLEE-7 AMB Questionnaire SHAYLEE-7 Date SHAYLEE - 7 assessed: 10/08/24 Feeling nervous, anxious, or on edge: 1 = Several days Not being able to stop or control worryin = Several days Worrying too much about different things: 1 = Several days Trouble relaxin = Several days Being so restless that it is hard to sit still: 0 = Not at all Becoming easily annoyed or irritable: 1 = Several days Feeling afraid as if something awful might happen: 1 = Several days Total SHAYLEE-7 score (0-4 normal; 5-9 mild; 10-14 moderate; 15-21 severe): 6 Source: Developed by Drs. Marck Bruce, Anaid Ro, Timo Rosen and colleagues, with an educational annemarie from [employer]. SHAYLEE-7 Assessment Billing SHAYLEE-7 Assessment Tool: SHAYLEE-7 Assessment 96946 Review of Systems Const All systems reviewed & are unremarkable except as noted in HPI and below Card Denies chest pain at rest, Denies chest pain with activity, Denies edema, Denies irregular heart rhythm, Denies claudication, Denies dyspnea, Denies dyspnea on exertion, Denies orthopnea, Denies paroxysmal nocturnal dyspnea and Denies slow heart rate Resp Denies cough, Denies dyspnea and Denies dyspnea on exertion GI Denies abdominal pain, Denies change in bowel habits, Denies excessive flatus, Denies nausea and Denies vomiting Denies urinary incontinence, Denies urinary hesitancy and Denies urinary urgency Musc Denies abnormal gait, Denies atrophy, Denies deformity and Denies limited range of motion Skin/Breast Denies bleeding lesions, Denies changing lesions and Denies rash Neuro Denies abnormal gait and Denies lack of coordination Physical exam (Primary Care) Vital Signs: Last Vital Signs Temp 97.5 F 10/08/24 07:36 Pulse 94 10/08/24 07:36 Resp 18 10/08/24 07:36 BP 112/76 10/08/24 07:36 Pulse Ox 98 10/08/24 07:36 Oxygen Delivery Method Room Air 10/08/24 07:36 BMI result Body Mass Index 28.2 Tobacco/Smoking Status: Tobacco use Status Tobacco use date assessed 10/08/24 10/08/24 07:46 Patient Tobacco Use Status Former Tobacco user 10/08/24 08:03 Tobacco use type Cigarette 10/08/24 08:03 e-Cigarette/Vaping Use Never Used 10/08/24 08:03 PHQ-9: PHQ-9 Score PHQ-9: Total score 7 10/08/24 10:27 Depression Screening Interpretation: Positive Depression Screening Follow-up: Existing condition, In treatment and Follow-up Visit Requested Thrive Assessment: Date of Thrive Assessment Date Thrive assessed 10/08/24 10/08/24 07:46 Currently or been in a relationship where the following occur: I choose not to answer HENMT Head: Yes normal to inspection, Yes normocephalic and Yes atraumatic Ears: external ears normal Eyes General: appearance normal, both eyes and all related structures Eyelids: Yes eyelids normal Conjunctivae: conjunctivae normal Neck Neck: Yes normal visual inspection and Yes supple Resp Effort & Inspection: normal respiratory effort Auscultation: clear to auscultation bilaterally Cardio Jugular venous distension: no JVD Rate: regular rate Rhythm: regular rhythm Heart sounds: S1 normal heart sound present and S2 normal heart sound present GI Inspection: Yes normal to inspection Palpation (GI): Soft to palpation and nontender Auscultation: normal bowel sounds Skin General skin exam: no rashes or lesions noted Neuro General: no focal motor deficits Extrem General: Yes full ROM Psych Appearance: grossly normal Immunizations Boostrix Tdap 2.5 Lf unit-8 mcg-5 Lf/0.5 mL intramuscular syringe Performing Provider: Itzel Cade MD [facility] [place] [facility] Administered by: Rama Suarez RN on 10/08/24 08:20 Dose Route Admin Location Dispensed Lot Number Expiration Date [employer] 0.5 mL IM Left Deltoid 0.5 mL [id number] 01/09/1928 [id number] [employer] VIS Given Date VIS Provided VIS Publication Date 10/08/24 Single Vaccine 21 Eligibility Eligibility Date Funding Source Not [facility] Eligible 10/08/24 Private Coding Level of Care Code Est Pt Prev Care 40-64y(41816) Diagnoses Physical exam Z00.00 Mild major depression F32.0 Additional Codes SHAYLEE-7 Assessment Billing - SHAYLEE-7 Assessment Tool: SHAYLEE-7 Assessment 33718 ([id number]) PHQ-9 - 76430 - PHQ-9 Billing: Yes ([id number]) Time Spent (min) 35 Assessment & Plan Assessment & Plan (1) Physical exam: Code(s): Z00.00 - Encounter for general adult medical examination without abnormal findings Category: Medical (2) Mild major depression: Code(s): F32.0 - Major depressive disorder, single episode, mild Category: Medical Plan Mammogram ordered. Tdap vaccine done. Colonoscopy will be repeated in 2026. DEXA scan will be order in 2 years. Continue bupropion for depression. Orders: Orders Comprehensive [place]. Panel Fast Today Z00.00 - Encounter for general adult medical examination without abnormal findings Vitamin D 25-OH Total Today E55.9 - Vitamin D deficiency, unspecified TDaP Immunization Today Z23 - Encounter for immunization Lipid Panel Today E78.5 - Hyperlipidemia, unspecified, Z00.00 - Encounter for general adult medical examination without abnormal findings Medications: Refilled tirzepatide (weight loss) (Zepbound) 7.5 mg (0.5 mL) subcut QWEEK 4 weeks 2 mL 0RF E66.9 - Obesity, unspecified, Z68.37 - Body mass index [BMI] 37.0-37.9, adult amlodipine 5 mg PO DAILY 90 days 90 tabs 1RF
--- OUTSIDE RECORDS SUMMARY | 2024-10-08 07:36 | XMS_ITS ---
[facility] Address [address] [place] [address] Care Team Providers Care First Coat Operator Name Role Phone Dillon HOLM, Itzel Primary Care Provider Unavail Sam Laureano [facility] [phone] Encounters Encounter Location Date [facility] [address] 05/11/2023 Sam Sorto Plan Of Treatment No Information Progress Notes * Charlette FLORESDOB:12/1964 (59 yo F)Acc No.[id number]:05/11/2023 Progress Notes Patient:AMBROSEPIERRE Valerie svetlana Provider:Silvia Sorto DPM :1965???Age:58 Y???Sex:Female D ate:05/11/2023 Address[address] [id number] Pcp:Itzel Carranza MD Subjective: * Chief Complaints: * ??? * Medical History:? Objective: * Vitals:? Assessment: Plan: * Treatment: * Images: * The named appointment provid er may or may not be the originator of this progress note, and it is not deemed complete until electronically signed by the appointment provider. Sign off status: Pending * Provider:Silvia Sorto DPM Date:? 023 Generated for Brad james/Mook/eTransmitting on:?10/08/2024 07:36 AM EDT
--- OUTSIDE RECORDS SUMMARY | 2024-10-08 07:36 | XMS_ITS | Clinical Summary ---
Author Organization [facility] it Address [address] [place] [address] Care Team Providers Care Medical Health Researcher Name Role Phone Itzel Cade MD Primary Care Provider [phone] Surgical History Surgery Date Site/Laterality Comments OTHER SURGICAL HISTORY PROCEDURE: IMPLANT BREAST SILICONE/EQ; COMMENT: 2010 TUBAL LIGATION PROCEDURE: HISTORICAL TUBAL LIGATION OTHER SURGICAL HISTORY PROCEDURE: HISTORICAL PANNICULECTOMY OTHER SURGICAL HISTORY 05/02/2014 PROCEDURE: HYSTEROSCOPY, DIAGNOSTIC; COMMENT: polypectomy - hyperplastic polyp BREAST BIOPSY PROCEDURE: BX BREAST; PERC NEEDLE CORE W/IMAG GUID; COMMENT: lt neg BREAST SURGERY PROCEDURE: NC UNLISTED PROCEDURE BREAST; COMMENT: 2010 silicone implants OTHER SURGICAL HISTORY PROCEDURE: HISTORICAL LAPAROSCOPIC HYSTERECTOMY WITH OR WITHOUT BSO; COMMENT: 2015 TLH/BS Medical History Medical History Date Comments Anxiety DX:Anxiety Depression DX:Depression Fibromyalgia DX:Fibromyalgia Hypertension DX:Hypertension Family History Medical History Relation Name Comments Lymphoma Maternal Grandmother Breast cancer Mother Breast cancer Other Cousin (Mother 's Side) Colon cancer Neg Hx Ovarian cancer Neg Hx Uterine cancer Neg Hx Relation Name Status Comments Maternal Grandmother Mother Other Social History Tobacco Use Types Packs/Day Years Used Date Smoking Tobacco: Former Smokeless Tobacco: Never Alcohol Use Standard Drinks/Week Comments Yes 0 (1 standard drink = 0.6 oz pur e alcohol) Comments Unknown Sex and Gender Information Value Date Recorded Sex Assigned at Not on file Legal Sex Female 5:43 AM EST Gender Identity Not on file Sexual Orientation Not on file Obstetrics History Last Filed Vital Signs Vital Sign Reading Time Taken Comments Blood Pressure 125/81 04/12/2022 11:32 AM EDT Pulse 86 04/12/2022 11:32 AM EDT Temperature - - Respiratory Rate - - Oxygen Saturation - - Inhaled Oxygen Concentration - - Weight 86.6 kg (191 lb) 04/12/2022 11:32 AM EDT Height - - Body Mass Index - - Plan of Treatment Health Maintenance Due Date Last Done Comments Breast Cancer Screening 1965 DTaP,Tdap,and Td Vaccines (1 - Tdap) 1983 Pneumococcal Vaccine: 50+ Years (1 of 1 - PCV) 2014 Zoster Vaccines (1 of 2) 2014 Colorectal Cancer Screening: Colonoscopy 06/04/2022 Depression Screening 06/04/2022 HIV Screening 06/04/2022 Hepatitis C Screening 06/04/2022 Social Influencers of Health Screening 06/04/2022 COVID-19 Vaccine (2023-2 5 season) 2024 12/21/2020, 09/09/2020 Influenza Vaccine (#1) 2024 RSV Immunization Adult Patients (1 - 1-dose 75+ series) 2039 HIB Vaccines Aged Out No longer eligi ble based on patient's age to complete this topic HPV Vaccines Aged Out No longer eligi ble based on patient's age to complete this topic Hepatitis A Vaccines Aged Out No long er eligible based on patient's age to complete this topic Hepatitis B Vaccines Aged Out No long er eligible based on patient's age to complete this topic IPV Vaccines Aged Out No longer eligi ble based on patient's age to complete this topic MMR Vaccines Aged Out No longer eligi ble based on patient's age to complete this topic Meningococcal ACWY Vaccine Aged Out N o longer eligible based on patient's age to complete this topic Meningococcal B Vaccine Aged Out No l onger eligible based on patient's age to complete this topic Pneumococcal Vaccine: Pediatrics (0 to 5 Years) and At-Risk Patients (6 to 64 Years) Aged Out No longer eligible b ased on patient's age to complete this topic RSV Immunization Patients Under 20 months Aged Out No longer eligible b ased on patient's age to complete this topic Varicella Vaccines Aged Out No longer eligible based on patient's age to complete this topic Care Teams Medical Health Researcher Relationship Specialty Start Date End Date Itzel Cade MD [address] [place] [address] , [address] [facility] D/B/A: [facility] DENIS Mcmullen PCP - General Internal Medicine 01/25/21
--- OUTSIDE RECORDS SUMMARY | 2024-10-08 07:36 | XMS_ITS ---
Author Organization [facility] Address [address] [place] [address] Care Team Providers Care Cryptographer Name Role Phone Dillon HOLM, Itzel Primary Care Provider Unavail Sam Laureano [facility] [phone] Encounters Encounter Location Date [facility] [address] 04/24/2023 Sam Sorto Plan Of Treatment No Information Progress Notes * Charlette FLORESDOB:12/1964 (59 yo F)Acc No.[id number]:04/24/2023 Progress Notes Patient:AMBROSEPIERRE Valerie svetlana Provider:Silvia Sorto DPM :1965???Age:58 Y???Sex:Female D ate:04/24/2023 Address:[address] [place] Pcp:Itzel Carranza MD Subjective: * Chief Complaints: [...]
--- OUTSIDE RECORDS SUMMARY | 2024-10-08 07:36 | XMS_ITS | Patient Health Record ---
Author Organization [facility] [place] Address [address] [place] [id number] Care Team Providers Care Customer Operations Intern Name Role Phone Itzel Carranza MD Primary Care Provider Unavail ken Macario Sam Unavailable [phone] Allergies No Known Allergies Reason For Referral No Information Medications Medication SIG (Take, Route, Frequency, Duration) Notes Start Date End Date Status Phenazopyridine HCl 100 MG 2 tablets after meals Orally Three times a day Active Omeprazole 20 MG 1 capsule 30 minutes before morning meal Orally Once a day Active Albuterol Sulfate 90mcg 2 puffs Active amLODIPine Besylate 5 MG 1 tablet Orally Once a day Active Blood Pressure Monitor - as directed Active Cholecalciferol 25 MCG (1000 UT) 1 capsule Orally Once a day Active Lidocaine 5 % 1 patch remove after 12 hours Externally Once a day Active Losartan Potassium 100 MG 1 tablet Orall y Once a day Active Atorvastatin Calcium 40 MG 1 tablet Orally Once a day Active buPROPion HCl 150mg PO BID 90 days Active Amoxicillin-Pot Clavulanate 875 875-125 MG one tab Orally every 12 hrs Active Social History Tobacco Use: Social History Observation Description Date Details (start date - stop date) Former Smoker NA - NA Tobacco Use/Smoking Question Answer Notes Are you a: former smoker Additional Findings: Tobacco Non-User Current no n-smoker Alcohol Screen Question Answer Notes Did you have a drink containing alcohol in the p ast year? No Points 0 Interpretation Negative Tobacco use other than smoking: Question Answer Notes Are you an other tobacco user? No Plan Of Treatment No Information Insurance Providers Payer Name Payer Address Payer Phone Subscriber Number Group Number Insured Name Patient Relationship to Insured Coverage Start Date Coverage End Date [facility] [address] [facility] [id number] [phone] [id number] Charlette Flores Self - patient is the insured Medical (General) History Medical History History ICD Code Anxiety chest pain Hyperlipidemia Fibromyalgia Reflux ( GERD) Hiatal hernia High blood pressure Insomnia osteoarthritis Incontinence Back,Hip,and Knee pain covid-19 Depression Headaches/Migraines Surgical History Surgery Date(Month/Year) bilateral tubal ligation (BTL) breast implant 2010 hysterectomy lumpectomy, right breast abdominoplasty 2006
--- OUTSIDE RECORDS SUMMARY | 2024-10-08 07:36 | XMS_ITS ---
Author Organization [facility] Address [address] [place] [address] Care Team Providers Care Ultrasound Technician Name Role Phone Dillon HOLM, Itzel Primary Care Provider Unavail Sam Laureano Unavailable [phone] Allergies No Known Allergies REASON FOR VISIT Wart(s) Medications Medication SIG (Take, Route, Frequency, Duration) Notes Start Date End Date Status Phenazopyridine HCl 100 MG 2 tablets after meals Orally Three times a day Active Omeprazole 20 MG 1 capsule 30 minutes before morning meal Orally Once a day Active Cholecalciferol 25 MCG (1000 UT) 1 capsule Orally Once a day Active Lidocaine 5 % 1 patch remove after 12 hours Externally Once a day Active Losartan Potassium 100 MG 1 tablet Orall y Once a day Active amLODIPine Besylate 5 MG 1 tablet Orally Once a day Active Blood Pressure Monitor - as directed Active Atorvastatin Calcium 40 MG 1 tablet Orally Once a day Active buPROPion HCl 150mg PO BID 90 days Active Amoxicillin-Pot Clavulanate 875 875-125 MG one tab Orally every 12 hrs Active Albuterol Sulfate 90mcg 2 puffs Active Social History Tobacco Use: Social History [...] Are you an other tobacco user? No Vital Signs Height 5ft 2in in 05/29/2023 Weight 163 lbs 05/29/2023 BMI 29.81 kg/m2 05/29/2023 Encounters Encounter Location Date Provider Diagnosis [facility] [place] [address] [address] 05/29/2023 Sam Macario Other viral warts B07.8 ; Pain in left foot M79.672 ; Pain in right foot M79.671 ; Tinea unguium B35.1 and Ingrowing nail L60.0 Assessments Encounter Date Diagnosis (ICD Code) Assessment Notes Treatment Notes Treatment Clinical Notes Section Notes 05/29/2023 Other viral warts (ICD-10 - B07.8) 05/29/2023 Pain in left foot (ICD-10 - M79.672) 05/29/2023 Pain in right foot (ICD-10 - M79.671) 05/29/2023 Tinea unguium (ICD-10 - B35.1) 05/29/2023 Ingrowing nail (ICD-10 - L60.0) Plan Of Treatment Next Appt Details Follow Up: prn, Reason: Procedure Notes * Category Sub-Category Detail Notes Wart Treatment Procedure Verrucae(s) were debrided to pin-point bleeding margins with sterile surgical blade (51591), silver nitrate chemocautery applied Progress Notes * Charlette FLORESDOB:12/1964 (58 yo F)Acc No.[id number]:05/29/2023 Progress Notes Patient:?Valerie Flores Provider:?Sam Sorto DPM :1965???Age:58 Y???Sex:Female D ate:05/29/2023 Address:[address] [place] [address] [facility] Pcp:Itzel Carranza MD Subjective: * Chief Complaints: * ???Wart(s) * HPI: ???Skin problems:?Nature:?discolored, tender, aching.?Location:?Right , 1st, Bottom, Forefoot, Right .?Duration:?a few months.?Onset/Cause:?unknown.?Course:?improved.?Aggravated by:?any pressure, standing, walking.?Treatments:?nail bx.?Severity/Quality:?moderate.?Wart:?Pt States Last PCP Visit:?Date:?07/04/2022 * ROS:?General/Constitutional:?Nausea?denies.?Vomiting?denies.?Hunger Thirst?denies.?Loss appetite?denies.?Chills?denies.?Fatigue?denies.?Fever?denies.?Night Sweats?denies.?Unexplained weight loss?denies.?Unexplained weight gain?denies.?HEENTM:?Dentures?denies.?Dizziness?denies.?Glasses/contacts?denies.?Retinopathy?de nies.?Blurred/double vision?denies.?TMJ?denies.?Discharge/drainage?denies.?Implants?denies.?Sore throat?denies.?Dental implants?denies.?Hard of hearing ?denies.?Difficulty chewing/swallowing/speaking?denies.?Nose bleeds?denies.?Sore mouth?denies.?Respiratory:?On Oxygen?denies.?Pneumonia/pleurisy?denies.?Bronchitis?denies.?Emphysema?denies.?C oughing?denies.?Cough blood?denies.?Shortness of breath?denies.?Wheezing?denies.?Cardiovascular:?Pacemaker?denies.?MVP?denies.?WPW?denies.?CHF?denies.?Heart attack?denies.?Septal defect?denies.?Rapid beat?denies.?Chest pain ?denies.?Atrial Fib.?denies.?Murmur/Palpitations?denies.?Gastrointestinal:?Hemorrhoids?denies.?Stomach/Abdominal pain?denies.?Dark blood stool?denies.?Irritable bowel ?denies.?Constipation?denies.?Diarrhea?denies.?Hematology:?Swelling?denies.?Clots?denies.?Varicose Veins?denies.?Bruising?denies.?Bleeding problem?denies.?Genitourinary:?Blood urine?denies.?Frequent/Painfu/urination/bladder control?denies.?Kidney stones?denies.?Infection (UTI)?denies.?Nephropathy?denies.?sex trans dis (STD)?denies.?Prostate?denies.?Musculoskeletal:?Hammertoes?denies.?Bunions?denies.?Back Pain?denies.?Muscle Cramps/ Resting?denies.?Muscle cramps / walking?denies.?Generalized aches and pains?denies.?Weakness?denies.?Integ.:?[place]?denies.?Scars?denies.?Corns/calluses?denies.?Ingrown nails?denies.?Painful nails?denies.?Open Sores?denies.?Rashes?denies.?Neurologic:?Difficulty sleeping?denies.?Brain disorder?denies.?Numbness?denies.?Balance trouble?denies.?Confusion?denies.?Fainting/blackouts?denies.?Tingling?denies.?Tr emors?denies.? * Medical History:? * Surgical History:?bilateral tubal ligation (BTL) breast implant 2010hysterectomy lumpectomy, right breast abdominoplasty 2006 * Hospitalization/Major Diagno stic Procedure:?No Hospitalization History. * Family History:?Mother: dece ased, Breast Cancer, alzheimer's dementia, poor circulation, diagnosed with Diabetic - NIDDM, Unspecified essential hypertension, Family history of arthritis.?Father: alive, stroke, heart attack, diagnosed with Unspecified essential hypertension.? * Social History:?Tobacco Use:?Tobacco Use/Smoking?Are you a:?former smoker ?Additional Findings: Tobacco Non-User?Current non-smoker ?Tobacco use other than smoking?Are you an other tobacco user??No ???Drugs/Alcohol:?Drugs?Have you used drugs other than those for medical reasons in the past 12 months??No ?Alcohol Screen?Did you have a drink containing alcohol in the past year??No ?Points?0 ?Interpretation?Negative ???Miscellaneous:?no Caffeine, none. ?Children: yes, 3. ?Marital status: . ?Occupation: Employed, [employer]. * Medications:?TakingAlbuterol Sulfate , Notes: 90mcg 2 puffsamLODIPine Besylate 5 MG Tablet 1 tablet Orally Once a dayAmoxicillin-Pot Clavulanate 875 875-125 MG Tablet one tab Orally every 12 hrsAtorvastatin Calcium 40 MG Tablet 1 tablet Orally Once a daybuPROPion HCl , Notes: 150mg PO BID 90 daysBlood Pressure Monitor - Device as directed Cholecalciferol 25 MCG (1000 UT) Capsule 1 capsule Orally Once a dayLidocaine 5 % Patch 1 patch remove after 12 hours Externally Once a dayLosartan Potassium 100 MG Tablet 1 tablet Orally Once a dayPhenazopyridine HCl 100 MG Tablet 2 tablets after meals Orally Three times a dayOmeprazole 20 MG Capsule Delayed Release 1 capsule 30 minutes before morning meal Orally Once a dayMedication List reviewed and reconciled with the patientTaking Albuterol Sulfate , Notes: 90mcg 2 puffsTaking amLODIPine Besylate 5 MG Tablet 1 tablet Orally Once a dayTaking Amoxicillin-Pot Clavulanate 875 875-125 MG Tablet one tab Orally every 12 hrsTaking Atorvastatin Calcium 40 MG Tablet 1 tablet Orally Once a dayTaking buPROPion HCl , Notes: 150mg PO BID 90 daysTaking Blood Pressure Monitor - Device as directed Taking Cholecalciferol 25 MCG (1000 UT) Capsule 1 capsule Orally Once a dayTaking Lidocaine 5 % Patch 1 patch remove after 12 hours Externally Once a dayTaking Losartan Potassium 100 MG Tablet 1 tablet Orally Once a dayTaking Phenazopyridine HCl 100 MG Tablet 2 tablets after meals Orally Three times a dayTaking Omeprazole 20 MG Capsule Delayed Release 1 capsule 30 minutes before morning meal Orally Once a dayMedication List reviewed and reconciled with the patient * Allergies:?N.K.D.A.yes[Aller gies Verified] Objective: * Vitals:?Ht: 5ft 2in, Wt:163, BMI:29.81, Shoe size: 7-7.5, Ht-cm: 157.48 cm, Wt- k.94 kg. * Examination: ???General Examination: ?GENERAL APPEARANCE:?pleasant, alert, well nourished, well developed, well hydrated, with good attention to hygene/body habitus, and in no acute distress.?ORIENTED:?person,place, and time.?Neurological: ?SENSORY:?neurological exam reveals intact sensorium, pain sensation normal, vibration sensation intact, pinprick sensation is normal in the lower extremities, anesthesia, burning, tingling, B/L.?Vascular: ?DP PULSES:?2/4, B/L.?PT PULSES:?2/4, B/L.?CAPILLARY FILL TIME:?3 secs. per digit. B/L.?SKIN TEMPERTURE GRADIENT OF THE LOWER EXTERMITIES:?normal, B/L.?HAIR GROWTH/TEXTURE/ELASTICITY/TURGOR:?normal, B/L.?PIGMENTATION:?normal, B/L.?EDEMA:?absent, B/L.?TELANGECTASIA:?absent, B/L.?Dermatologic: ?SKIN FINDINGS:?Skin exam reveals normal texture, elasticity, and tugor. There are no masses. The interspaces are clear.?VERRUCA:? Reveals a Single , multi-loculated , mosaically patterned, round, raised, flat-topped, petechial bleeding papule(s), with cauliflower appearance and interruption of skin lines, pain to lateral compression, and size estimated at _1_ mm diameter, plantar Forefoot, RIGHT 3rd mtpj.?Orthopedic: ?MUSCLE STRENGTH:?5/5 all groups in a symmetrical fashion , B/L.?Nails: ?NAILS are:? Elongated, overgrown, dystrophic, lytic, greater than 3mm thick, discolored and friable with crumbly malodorous subungual debris, T5, proximal clearing of nail __30__ percent.?Ingrown Nail: ?INSPECTION:? Reveals nail incurvation, pain on palpation, groove hypertrophy, groove ischemia, Medial nail border, T5.? Assessment: * Assessment: 1.?Other viral warts - B07.8 (Primary)?2.?Pain in left foot - M79.672?3.?Pain in right foot - M79.671?4.?Tinea unguium - B35.1?5.?Ingrowing nail - L60.0? Plan: * Treatment: * Procedures:?Wart Treatment:?Procedure?Verrucae(s) were debrided to pin-point bleeding margins with sterile surgical blade (96679), silver nitrate chemocautery applied.? * Procedure Codes:?77749 Wart Destruction, 1-14, Modifiers: XS * Preventive Medicine:? ??Counseling:?Discussion:?-13: Office or other outpatient visit for the evaluation and management of an established patient, which required a medically appropriate history and/or examination and LOW level of DECISION MAKING for: 1 STABLE ACUTE UNCOMPLICATED PROBLEM, 2 OR MORE MINOR PROBLEMS, OR 1 STABLE CHRONIC PROBLEM, THAT POSE(S) A LOW RISK FOR MORBIDITY/MORTALITY. The visit on the day of the encounter encompassed interpreting the data and educating the patient as to the nature of their condition, treatment options available according to their individual PMH, meds, allergies, and overall health/living conditions, as well as any potential risks or complications that may occur from a failure to adhere to, and participate in, the recommended course of therapy. The discussion included a complete verbal, and/or written explanation of the examination results, any x-rays taken, the proposed diagnosis, and outline of the treatment plan. A schedule for future care needs was also explained. The patient verbalized an understanding of the instructions at this time and agreed to be an active participant in their treatment. If the patient should think of any questions or concerns after the visit, I have encouraged the patient to call the office.?Fungal Nail Counseling:?The patient was counseled on the diagnosis, potential etiologies (including, but not limited to, environmental factors, genetic, immune deficiency), and the multiple treatment options for Onychomycosis. We discussed the risks and benefits of each option from performing no treatment, to ultraviolet light shoe treatment, to laser nail treatment, to applying topical antifungals, to taking oral antifungal medication, to surgical removal of the involved nail(s) with or without performing a matricectomy, or any combination thereof. We discussed the advantages and disadvantages of each of possible treatment and importance for adherence to all the recommended therapies for optimum success. This includes the necessity for weekly emery board self nail home debridements, and control the nail and skin environment as much as possible by only using a fresh, dry pair of shoes/socks each day, as well as keeping the skin as dry as possible through the use of sprays/powders if necessary. The patient was instructed to discard the emery board after use to prevent reinfection of the involved nail(s). We discussed the mycological and visual clinical effectiveness of topical vs oral antifungal treatments as well as each ones potential side effects and/or any patient- specific medication interactions. We discussed the reasons behind the important requirement of regular liver function testing with oral antifungal therapy for safety. Patient questions regarding use, dosage, successful outcomes, blood tests, and possible pharmaceutical interactions were reviewed and the patient verbalized that all answers were clearly understood, The Pt prefers topical treatment, Discussed biopsy results which confirmed the patients condition; p to use topical af-vicks for several months.? * Follow Up:?prn * Images: * Sign off status: Completed true * Provider:?Sam Sorto DPM Date:? 023 Generated for Printi ng/Faxing/eTransmitting on:?10/08/2024 07:36 AM EDT History and Physical Notes * HPI (History of Present Illness) Category Sub-Category Detail Notes Category Not es Wart Pt States Last PCP Visit: Date:: 07/04/2022 Skin problems Nature: discolored, tender, aching Location: Right , 1st, Bottom, Forefoot, Right Duration: a few months Onset/Cause: unknown Course: improved Aggravated by: any pressure, standi ng, walking Treatments: nail bx Severity/Quality: moderate Examination Category Sub-Category Detail Notes Category Not es Ingrown Nail INSPECTION: Reveals nail inc urvation, pain on palpation, groove hypertrophy, groove ischemia, Medial nail border, T5 Neurological SENSORY: neurological exa m reveals intact sensorium, pain sensation normal, vibration sensation intact, pinprick sensation is normal in the lower extremities, anesthesia, burning, tingling, B/L Dermatologic SKIN FINDINGS: Skin exam reveal s normal texture, elasticity, and tugor. There are no masses. The interspaces are clear VERRUCA: Reveals a Single , m ulti-loculated , mosaically patterned, round, raised, flat-topped, petechial bleeding papule(s), with cauliflower appearance and interruption of skin lines, pain to lateral compression, and size estimated at _1_ mm diameter, plantar Forefoot, RIGHT 3rd mtpj Orthopedic MUSCLE STRENGTH: 5/5 all groups in a symm etrical fashion , B/L General Examination GENERAL APPEARANCE: pleasant , alert, well nourished, well developed, well hydrated, with good attention to hygene/body habitus, and in no acute distress ORIENTED: person,place, and ti me Vascular DP PULSES (B): 2/4, B/L PT PULSES (B): 2/4, B/L CAPILLARY FILL TIME: 3 secs. per digit. B/L TEMPERTURE GRADIENT (C): normal, B/L TROPHIC CONDITION-TEXTURE/ELASTICITY/TUR GOR/HAIR GROWTH (B): normal, B/L EDEMA (C): absent, B/L TELANGECTASIA: absent, B/L PIGMENTATION: normal, B/L Nails NAILS are: Elongated, overg rown, dystrophic, lytic, greater than 3mm thick, discolored and friable with crumbly malodorous subungual debris, T5, proximal clearing of nail __30__ percent
--- NOTE | 2024-10-08 08:20 | AM.OFFVISNUR ---
Vital Signs 10/08/24 07:36 Height 5 ft 2 in Weight 154 lb 6.4 oz BMI 28.2 BP 112/76 Blood Pressure Location Lt brachial Position Sitting Respiration 18 Pulse 94 Pulse Source Pulse Oximeter Temp 97.5 F Temp Source Temporal Artery Scan Pulse Oximetry (%) 98 Oxygen Delivery Method Room Air Intake Visit Reasons: PE Allergies No Known Allergies Allergy (Verified 10/08/24 07:36) Medication List - Last Reconciled 10/08/24 by Itzel Cade MD albuterol sulfate 90 mcg/actuation 2 puffs inhalation Q4-6H PRN amlodipine 5 mg PO DAILY 90 days atorvastatin 40 mg PO BEDTIME 90 days blood pressure monitor As directed bupropion HCl (smoking deter) 150 mg PO BID 90 days cholecalciferol (vitamin D3) 25 mcg PO DAILY 90 days cyclobenzaprine 5 mg PO BEDTIME PRN fluticasone propionate 50 mcg/actuation (Flonase Allergy Relief) 1 spray intranasal DAILY 30 days ibuprofen 800 mg PO TID PRN lidocaine 5% 1 appl topical BEDTIME PRN 30 days lorazepam 0.5 mg PO BID PRN 30 days losartan 100 mg PO DAILY 90 days omeprazole 20 mg PO DAILY PRN 90 days pyridoxine (vitamin B6) 100 mg PO DAILY 90 days tirzepatide (weight loss) (Zepbound) 7.5 mg (0.5 mL) subcut QWEEK 4 weeks Immunizations Boostrix Tdap 2.5 Lf unit-8 mcg-5 Lf/0.5 mL intramuscular syringe Performing Provider: Itzel Cade MD [facility] Administered by: Rama Suarez RN on 10/08/24 08:20 Dose Route Admin Location Dispensed Lot Number Expiration Date NDC Telephone Assembler 0.5 mL IM Left Deltoid 0.5 mL [id number] [birth year]1927 [id number] [employer] VIS Given Date VIS Provided VIS Publication Date 10/08/24 Single Vaccine 21 Eligibility Eligibility Date Funding Source Not [facility] Eligible 10/08/24 Private Assessment & Plan Assessment & Plan Orders: Orders Comprehensive [place]. Panel Fast Today Z00.00 - Encounter for general adult medical examination without abnormal findings Vitamin D 25-OH Total Today E55.9 - Vitamin D deficiency, unspecified TDaP Immunization Today Z23 - Encounter for immunization Lipid Panel Today E78.5 - Hyperlipidemia, unspecified, Z00.00 - Encounter for general adult medical examination without abnormal findings Medications: New Boostrix Tdap (diphth,pertus(acell),tetanus) 0.5 mL IM ONCE 0.5 mL 0RF NS Z23 - Encounter for immunization Refilled tirzepatide (weight loss) (Zepbound) 7.5 mg (0.5 mL) subcut QWEEK 2 mL 0RF 4 weeks E66.9 - Obesity, unspecified, Z68.37 - Body mass index [BMI] 37.0-37.9, adult amlodipine 5 mg PO DAILY 90 tabs 1RF 90 days Coding
== END 2024-10-08 08:23 | disposition home or self-care (01) ==
LOC: HO.HMCH 07:32
PROVIDERS: PCP Internal Medicine; Visit Provider Internal Medicine
DX: Z00.00 Encounter for general adult medical examination without abnormal findings (principal); F32.0 Major depressive disorder, single episode, mild; Z23 Encounter for immunization

== ENCOUNTER → 2024-10-08 07:31 | Outpatient (BNVA) | payer OTHER, SELFPAY | PROVIDERS: PCP Internal Medicine; Visit Provider Internal Medicine | DX: Z00.00 Encounter for general adult medical examination without abnormal findings (principal); Z23 Encounter for immunization; F32.0 Major depressive disorder, single episode, mild; Z79.899 Other long term (current) drug therapy | CPT/HCPCS: 90471; 90715; 96127 ==

== ENCOUNTER 2024-10-29 07:49 | Outpatient (REF) | payer OTHER, SELFPAY ==
--- OUTSIDE RECORDS SUMMARY | 2024-10-29 07:53 | XMS_ITS ---
Author Organization [facility] Address [address] [place] [address] Care Team Providers Care Astrophysics Professor Name Role Phone Dillon HOLM, Itzel Primary Care Provider Unavail Sam Laureano [facility] [phone] Encounters Encounter Location Date [facility] [address] [facility]/11/2023 Sam Sorto Plan Of Treatment No Information Progress Notes * Charlette FLORESDOB:12/1964 (59 yo F)Acc No.[id number]:05/11/2023 Progress Notes Patient:AMBROSEPIERRE Valerie svetlana Provider:Silvia Sorto DPM :1965???Age:58 Y???Sex:Female D ate:05/11/2023 Address:[address] [id number] Pcp:Itzel Carranza MD Subjective: * Chief Complaints: * ??? * Medical History:? Objective: * Vitals:? Assessment: Plan: * Treatment: * Images: * The named appointment provid er may or may not be the originator of this progress note, and it is not deemed complete until electronically signed by the appointment provider. Sign off status: Pending * Provider:Silvia Sorto DPM Date:? 023 Generated for Jaskarani jacob/Mook/eTransmitting on:?10/29/2024 07:53 AM EDT
--- OUTSIDE RECORDS SUMMARY | 2024-10-29 07:53 | XMS_ITS | Clinical Summary ---
Author Organization [facility] it Address [address] [place] [address] Care Team Providers Care Chlorine Plant Operator Name Role Phone Itzel Cade MD Primary Care Provider [phone] Surgical History Surgery Date Site/Laterality Comments OTHER SURGICAL HISTORY PROCEDURE: IMPLANT BREAST SILICONE/EQ; COMMENT: 2010 TUBAL LIGATION PROCEDURE: HISTORICAL TUBAL LIGATION OTHER SURGICAL HISTORY PROCEDURE: HISTORICAL PANNICULECTOMY OTHER SURGICAL HISTORY 05/02/2014 PROCEDURE: HYSTEROSCOPY, DIAGNOSTIC; COMMENT: polypectomy - hyperplastic polyp BREAST BIOPSY PROCEDURE: BX BREAST; PERC NEEDLE CORE W/IMAG GUID; COMMENT: lt neg BREAST SURGERY PROCEDURE: [place] UNLISTED PROCEDURE BREAST; COMMENT: 2010 silicone implants [...] 5 season) 2024 12/21/2020, 09/09/2020 Influenza Vaccine (Season Ended) 2025 RSV Immunization Adult Patients (1 - 1-dose [...] age to complete this topic Care Teams Chlorine Plant Operator Relationship Specialty Start Date End Date Itzel Cade MD [address] [place] [address] , [address] [facility] D/B/A: [facility] DENIS Mcmullen PCP - General Internal Medicine 01/25/21
--- OUTSIDE RECORDS SUMMARY | 2024-10-29 07:53 | XMS_ITS ---
Author Organization [facility] Address [address] [place] [address] Care Team Providers Care Marine Services Technician Name Role Phone Dillon HOLM, Itzel Primary Care Provider Unavail Sam Laureano Unavailable [phone] Allergies No Known Allergies REASON FOR VISIT [...] 05/29/2023 Encounters Encounter Location Date Provider Diagnosis [facility] [address] [address] 05/29/2023 Sam Macario Other viral warts B07.8 [...] pin-point bleeding margins with sterile surgical blade (76738), silver nitrate chemocautery applied Progress Notes * Charlette FLORESDOB:12/1964 (58 yo F)Acc No.[id number]:05/29/2023 Progress Notes Patient:?Valerie Flores Provider:?Sam Sorto DPM :1965???Age:58 Y???Sex:Female D ate:05/29/2023 Address:[address] [place] [address] [id number] Pcp:Itzel Carranza MD Subjective: * Chief Complaints: [...] yes, 3. ?Marital status: . ?Occupation: Employed, [employer]. * Medications:?TakingAlbuterol Sulfate , Notes: 90mcg 2 [...] pin-point bleeding margins with sterile surgical blade (22359), silver nitrate chemocautery applied.? * Procedure Codes:?76410 Wart Destruction, 1-14, Modifiers: XS * Preventive [...] DPM Date:? 023 Generated for Printi ng/Faxing/eTransmitting on:?10/29/2024 07:53 AM EDT History and Physical Notes * [...]
--- OUTSIDE RECORDS SUMMARY | 2024-10-29 07:53 | XMS_ITS | Patient Health Record ---
Author Organization [facility] [place] Address [address] [place] [address] Care Team Providers Care Sql Etl Developer Name Role Phone Itzel Carranza MD Primary Care Provider Unavail ken Macario Sam Unavailable [phone] Allergies No Known Allergies Reason For Referral [...] Insured Coverage Start Date Coverage End Date [facility] [address] [facility] [address] [phone] [id number] Charlette Flores Self - patient is the insured Medical (General) History Medical History History ICD Code Anxiety chest pain Hyperlipidemia Fibromyalgia Reflux ( GERD) Hiatal hernia High blood pressure Insomnia osteoarthritis Incontinence Back,Hip,and Knee pain covid-19 Depression Headaches/Migraines Surgical History Surgery Date(Month/Year) bilateral tubal ligation (BTL) breast implant 2010 hysterectomy lumpectomy, right breast abdominoplasty 2006
[2024-10-29 09:02] LABS: Appearance Urine Clear; Color Urine Dark Yellow; Glucose Urine UA Negative (Negative); Leukocyte Esterase Urine Trace (Negative); Nitrite Urine Negative (Negative); PH 5.5 (5.0-9.0); Specific Gravity - Urine >= 1.030 (1.005-1.025); UMIC TRIGGER UACC YES; Urine Blood Small (1+) (Negative); Urine Ketones Trace mg/dL (Negative); Urine Protein Negative (Neg-Trace)
[2024-10-29 09:05] LABS: Bacteria Urine 1+ (None Seen); Hyaline Casts Urine 0-2 /LPF (0-2); RBC Urine >20 /HPF (0-2); WBC Urine 0-5 /HPF (0-5)
[2024-10-29 09:21] LABS: Alanine Aminotransferase 19 U/L (0-31); Albumin Level 4.3 g/dL (3.5-5.0); Alkaline Phosphatase 56 U/L (39-117); Anion Gap 12 (12-20); Aspartate Amino Transferase 18 U/L (5-31); Bilirubin Total 0.5 mg/dL (0.0-1.0); Blood Urea Nitrogen 16 mg/dL (9-16); C Reactive Protein 0.11 mg/dL (< or = 0.50); Calcium 9.7 mg/dL (8.4-10.2); Carbon Dioxide 27 mmol/L (22-29); Chloride 107 mmol/L (96-108); Cholesterol 180 mg/dL (<200); Estimated Glomerular Filt Rate > 60; Glucose Fasting 90 mg/dL (60-99); HDL Cholesterol 47 mg/dL (>40); LDL Cholesterol Calculated 112 mg/dL (<100); Potassium 4.1 mmol/L (3.3-5.1); Sodium 142 mmol/L (135-145); Total Protein 6.7 g/dL (6.5-8.0); Triglycerides 106 mg/dL (<150)
[2024-10-29 09:27] LABS: Erythrocyte Sedimentation Rate 8 MM/HR (0-20)
[2024-10-29 09:40] LABS: Vitamin D 25-OH Total 36.2 ng/mL (>30)
[2024-10-29 12:51] LABS: Bacterial Vaginosis PCR NEGATIVE (Negative); Candida Group PCR NOT DETECTED (Not Detect); Candida glab krusei PCR DETECTED (Not Detect); Trichomonas vaginalis PCR NOT DETECTED (Not Detect)
== END 2024-10-29 07:50 | disposition home or self-care (01) ==
LOC: HO.LAB 07:49
PROVIDERS: Advanced Practice Midwife; PCP Internal Medicine; Visit Provider Internal Medicine
DX: R10.2 Pelvic and perineal pain (principal); E78.5 Hyperlipidemia, unspecified; E55.9 Vitamin D deficiency, unspecified; I10 Essential (primary) hypertension; N89.8 Other specified noninflammatory disorders of vagina; R30.0 Dysuria
CPT/HCPCS: 36415; 80053; 80061; 81001; 81003; 81515; 82306; 85652; 86140

== ENCOUNTER 2024-10-29 08:30 | Outpatient (AMB) | payer OTHER, SELFPAY ==
--- OUTSIDE RECORDS SUMMARY | 2024-10-29 08:46 | XMS_ITS | Clinical Summary ---
Author Organization [facility] it Address [address] [place] [address] Care Team Providers Care Director Of Assessing Name Role Phone Itzel Cade MD Primary Care Provider [phone] Surgical History Surgery Date Site/Laterality Comments OTHER SURGICAL HISTORY PROCEDURE: IMPLANT BREAST SILICONE/EQ; COMMENT: 2010 TUBAL LIGATION PROCEDURE: HISTORICAL TUBAL LIGATION OTHER SURGICAL HISTORY PROCEDURE: HISTORICAL PANNICULECTOMY OTHER SURGICAL HISTORY 05/02/2014 PROCEDURE: HYSTEROSCOPY, DIAGNOSTIC; COMMENT: polypectomy - hyperplastic polyp BREAST BIOPSY PROCEDURE: BX BREAST; PERC NEEDLE CORE W/IMAG GUID; COMMENT: lt neg BREAST SURGERY PROCEDURE: [place] UNLISTED PROCEDURE BREAST; COMMENT: 2010 silicone implants [...] age to complete this topic Care Teams Director Of Assessing Relationship Specialty Start Date End Date Itzel Cade MD [address] [place] [address] , [address] [facility] D/B/A: [facility] DENIS Mcmullen PCP - General Internal Medicine 01/25/21
--- NOTE | 2024-10-29 08:47 | MHC.OFFVIS ---
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 She is doing well with steel pourer helper concerns: occasional fishy odor. Currently not sexually active. STI testing offered; she declined. Attempting to eat a healthy diet with calcium and vitamin D, no exercise w/knee pain. History of hysterectomy due to fibroids. Last mammogram; 2023. Colonoscopy is UTD. Denies any family history of ovarian or colon cancer. FH breast cancer. [facility] Medical History (Updated 10/29/24 @ 09:52 by Khadijah Echavarria CNM) Vaginal odor Empty sella Hiatal hernia Left flank pain Stress bladder incontinence, female Class 2 obesity with body mass index (BMI) of 37.0 to 37.9 in adult Chest pain Physical exam Class 2 obesity with body mass index (BMI) of 36.0 to 36.9 in adult Knee osteoarthritis Head injury Left knee pain Obesity (BMI 30-39.9) Pain and swelling of left lower leg Hospital discharge follow-up Dyslipidemia Insomnia Anxiety GERD (gastroesophageal reflux disease) Fibromyalgia HTN (hypertension) Surgical History History of hysterectomy History of lumpectomy of right breast History of breast implant History of bilateral tubal ligation Hx of abdominoplasty Family History Mother Breast cancer Alzheimer's disease Family/Other Breast cancer Father Myocardial infarction Social History Housing: House Alcohol intake: former Patient Tobacco Use Status: Former Tobacco user Tobacco use type: Cigarette Cigarettes Per Day: 4 e-Cigarette/Vaping Use: Never Used Second Hand Smoke Exposure: No service: No Current occupational status: employed Current occupation: Works for the [employer] Current occupational exposures/hazards: No Sexual orientation: Straight/Heterosexual Gender identity: Female Cognitive needs: No Hearing needs: No Vision needs: Yes (Glasses) Female Reproductive History Menstrual Age of Menarche: 8 Menopause type: surgical Total pregnancies: 5 Full term: 3 Number of Living Children: 3 Ab spontaneous: 2 Date of Mammogram: 11/09/23 (Birad 1) Review of Systems Const All systems reviewed & are unremarkable except as noted in HPI and below Reports as per HPI Eyes Reports no additional complaints ENT Reports no additional complaints Card Reports no additional complaints Resp Reports no additional complaints GI Reports as per HPI and Reports no additional complaints Reports as per HPI Musc Reports no additional complaints Skin/Breast Reports as per HPI Neuro Reports no additional complaints Psych Reports no additional complaints Endo Reports no additional complaints Pankaj/Lymph Reports no additional complaints Aller/Immun Reports no additional complaints Physical Exam Vital Signs: Last Vital Signs BP 104/70 10/29/24 08:48 BMI result Body Mass Index 27.8 Const General: cooperative, healthy appearing, no acute distress, well developed and alert Orientation/consciousness: patient oriented x3 HEENT Head: Yes normal to inspection Eyes General: appearance normal, both eyes and all related structures Neck Neck: Yes normal visual inspection Thyroid: Thyroid normal Chest Other: Bilateral implants and reconstruction scarring Chest palpation & inspection: normal inspection of the chest and other (no puckering, dimpling, peau de orange, retraction, discharge, masses) Breast/axilla inspection: normal inspection of the breasts Breast/axilla palpation: normal palpation of the breasts Resp Effort & Inspection: normal respiratory effort GI Inspection: Yes normal to inspection and Yes scar Palpation (GI): Soft to palpation Rectal Exam - Female: deferred General: Yes bladder normal to palpation External Female Exam: normal external appearance and normal appearance of the urethra Speculum Exam - Vagina: normal appearance of the vagina, normal palpation, normal vaginal discharge and vagina atrophic Speculum Exam - Cervix: normal appearance of the cervix and Cervix absent (vag cuff, no lesions or nodules) Bimanual exam- vagina & uterus: normal bimanual exam, normal palpation, bladder normal to palpation and uterus absent Bimanual Exam- Adnexa, other: no masses Skin General skin exam: no rashes or lesions noted Rashes: no rashes Neuro General: patient oriented x3 Cognition (Neuro): normal cognition Extrem General: Yes normal to inspection Psych Attitude: cooperative Thought process: Normal thought process present Assessment & Plan Assessment & Plan (1) Encounter for well woman exam with routine gynecological exam: Code(s): Z01.419 - Encounter for gynecological examination (general) (routine) without abnormal findings Category: Medical (2) Vaginal odor: Code(s): N89.8 - Other specified noninflammatory disorders of vagina Category: Medical Plan: BV panel obtained, await results for plan of care. Vaginal jamey, recommended women's probiotics. Healthy well-balanced diet. The patient expressed understanding and agreement with the plan of care. All of her questions and concerns were addressed to the best of my ability. Total time I personally spent on visit and management today: ?10 minutes. Time spent included review of pertinent office notes in the electronic health record; review of laboratory and imaging results; review of personal family medical history; performing physical exam; discussing diagnosis and plan of care with the patient; documenting the encounter in the EMR. Plan Discussed: Current recommendations for pap smears per ASCCP guidelines. Breast awareness, periodic self breast exams and yearly mammogram. Maintain a healthy lifestyle, well balanced diet including Calcium 1,200 mg and Vitamin D 600 IU daily, and routine exercise if tolerable. Patient verbalizes understanding and agrees to the plan of care. She was given opportunity to ask questions and all questions were answered to the best of my ability. RTO in 1 year for annual steel pourer helper exam. This note is constructed using voice recognition software. While every effort has been made to ensure accuracy, director ehs errors may have been included. Orders: Orders Bacterial Vaginosis Panel Today N89.8 - Other specified noninflammatory disorders of vagina Coding Level of Care Code Est Pt Level 2 (79048) Est Pt Prev Care 40-64y(61893) Diagnoses Encounter for well woman exam with routine gynecological exam Z01.419 Vaginal odor N89.8
[2024-10-29 08:48] VITALS: BP 104/70; BMI 27.8
== END 2024-10-29 09:55 | disposition home or self-care (01) ==
LOC: HO.HWS 08:31
PROVIDERS: PCP Internal Medicine; Visit Provider Advanced Practice Midwife
DX: Z01.419 Encounter for gynecological examination (general) (routine) without abnormal findings (principal); N89.8 Other specified noninflammatory disorders of vagina
CPT/HCPCS: 99212; 99396; 99459

== ENCOUNTER 2024-11-03 13:10 | Outpatient (AMB) | payer OTHER, SELFPAY ==
--- NOTE | 2024-11-03 13:12 | A.OFFVIS_ITS ---
Intake Visit Reasons: Inj-Right knee injection Intake Note: Charlette is a 59 year old female who presents today for a follow up visit of her bilateral knee OA s/p left knee injection administered on 03/31/24. Patient would like to have both of her knees injected today. She is interested in having bilateral knee gel injections - she has tried and failed 30 days of Tylenol 650 mg with minimal relief, as well as 30 days of Ibuprofen 600mg Allergies No Known Allergies Allergy (Verified 10/29/24 08:48) HPI HPI Inj-Right knee injection: Details: 59-year-old patient comes in with right knee pain. I injected her left knee at last visit and it was helpful but has worn off and was not helpful for that long. She describes difficulty with daily activities. [facility] Medical History (Updated 10/29/24 @ 09:52 by Khadijah Echavarria CNM) Vaginal odor Empty sella Hiatal hernia Left flank pain Stress bladder incontinence, female Class 2 obesity with body mass index (BMI) of 37.0 to 37.9 in adult Chest pain Physical exam Class 2 obesity with body mass index (BMI) of 36.0 to 36.9 in adult Knee osteoarthritis Head injury Left knee pain Obesity (BMI 30-39.9) Pain and swelling of left lower leg Hospital discharge follow-up Dyslipidemia Insomnia Anxiety GERD (gastroesophageal reflux disease) Fibromyalgia HTN (hypertension) Surgical History History of hysterectomy History of lumpectomy of right breast History of breast implant History of bilateral tubal ligation Hx of abdominoplasty Family History Mother Breast cancer Alzheimer's disease Family/Other Breast cancer Father Myocardial infarction Social History Housing: House Alcohol intake: former Patient Tobacco Use Status: Former Tobacco user Tobacco use type: Cigarette Cigarettes Per Day: 4 e-Cigarette/Vaping Use: Never Used Second Hand Smoke Exposure: No service: No Current occupational status: employed Current occupation: Works for the [employer] Current occupational exposures/hazards: No Sexual orientation: Straight/Heterosexual Gender identity: Female Cognitive needs: No Hearing needs: No Vision needs: Yes (Glasses) Female Reproductive History Menstrual Age of Menarche: 8 Physical Exam Extrem Other: Tenderness to palpation medial compartment bilateral knees. Office Procedures Joint Inj/Aspir; Non-Pain Clin Joint Injection/Drain Details: Injected 1 mL of Decadron and 3 mL 1% lidocaine and 3 mL of 0.25% Marcaine. Site was prepped using aseptic technique. Patient tolerated the procedure well. Shoulders, Hips, Knees, Knee Large Joint Injection : Right Knee Coding Procedure code (CPT) selection complete Results Reviewed Results Reviewed: I personally reviewed relevant radiographs. Severe medial compartment disease on the right and moderate on the left Assessment & Plan Assessment & Plan (1) Bilateral primary osteoarthritis of knee: Code(s): M17.0 - Bilateral primary osteoarthritis of knee Category: Medical Plan: Bilateral knee OA. I injected her right knee today. I recommend viscosupplementation. She has fibromyalgia in high BMI and surgery should be avoided for now. Coding Level of Care Code Est Pt Level 3 (27859) Diagnoses Bilateral primary osteoarthritis of knee M17.0 CPT Codes Shoulders, Hips, Knees, - Knee Large Joint Injection : Right Knee ([id number])
--- OUTSIDE RECORDS SUMMARY | 2024-11-03 14:32 | XMS_ITS ---
[facility] Address [address] [place] [address] Care Team Providers Care Broadband Engineer Name Role Phone Dillon HOLM, Itzel Primary Care Provider Unavail Sam Laureano [facility] [phone] Encounters Encounter Location Date [facility] [address] [facility]/11/2023 Sam Sorto Plan Of Treatment No Information Progress Notes * Charlette FLORESDOB:12/1964 (59 yo F)Acc No.[id number]:05/11/2023 Progress Notes Patient:AMBROSEPIERRE Valerie svetlana Provider:Silvia Sorto DPM :1965???Age:58 Y???Sex:Female D ate:05/11/2023 Address:[address] [id number] Pcp:Itzel Carranza MD Subjective: * Chief Complaints: [...] DPM Date:? 023 Generated for Brad james/Mook/eTransmitting on:?11/03/2024 02:32 PM EDT
--- OUTSIDE RECORDS SUMMARY | 2024-11-03 14:32 | XMS_ITS | Patient Health Record ---
Author Organization [facility] Address [address] [place] [address] Care Team Providers Care Historical Interpreter Name Role Phone Itzel Carranza MD Primary Care Provider Unavail ken Macario Sam Unavailable [phone] Allergies No Known Allergies Reason For Referral [...] Insured Coverage Start Date Coverage End Date [facility] [address] [facility] [phone] [id number] Charlette Flores Self - patient is the insured Medical (General) History Medical History History ICD Code Anxiety chest pain Hyperlipidemia Fibromyalgia Reflux ( GERD) Hiatal hernia High blood pressure Insomnia osteoarthritis Incontinence Back,Hip,and Knee pain covid-19 Depression Headaches/Migraines Surgical History Surgery Date(Month/Year) bilateral tubal ligation (BTL) breast implant 2010 hysterectomy lumpectomy, right breast abdominoplasty 2006
--- OUTSIDE RECORDS SUMMARY | 2024-11-03 14:32 | XMS_ITS ---
Author [facility] Address [address] [place] [address] Care Team Providers Care Sales Support Rep Name Role Phone Dillon HOLM, Itzel Primary Care Provider Unavail Sam Laureano Unavailable [phone] Allergies No Known Allergies REASON FOR VISIT [...] 05/29/2023 Encounters Encounter Location Date Provider Diagnosis [facility] [address] [address] 05/29/2023 Sam Macario Other viral warts B07.8 [...] pin-point bleeding margins with sterile surgical blade (99723), silver nitrate chemocautery applied Progress Notes * Charlette FLORESDOB:12/1964 (58 yo F)Acc No.[id number]:05/29/2023 Progress Notes Patient:?Valerie Flores Provider:?Sam Sorto DPM :1965???Age:58 Y???Sex:Female D ate:05/29/2023 Address:[address] [place] [address] [facility] [facility] Pcp:Itzel Carranza MD Subjective: * Chief Complaints: [...] yes, 3. ?Marital status: . ?Occupation: Employed, [employer]. * Medications:?TakingAlbuterol Sulfate , Notes: 90mcg 2 [...] pin-point bleeding margins with sterile surgical blade (26884), silver nitrate chemocautery applied.? * Procedure Codes:?02815 Wart Destruction, 1-14, Modifiers: XS * Preventive [...] DPM Date:? 023 Generated for Printi ng/Faxing/eTransmitting on:?11/03/2024 02:31 PM EDT History and Physical Notes * HPI [...]
== END 2024-11-03 13:47 | disposition home or self-care (01) ==
LOC: HO.HOS 13:11
PROVIDERS: PCP Internal Medicine; Visit Provider Orthopaedic Surgery
DX: M17.0 Bilateral primary osteoarthritis of knee (principal)
CPT/HCPCS: 20610

== ENCOUNTER → 2024-11-03 13:10 | Outpatient (BNVA) | payer OTHER, SELFPAY | PROVIDERS: PCP Internal Medicine; Visit Provider Orthopaedic Surgery | DX: M17.0 Bilateral primary osteoarthritis of knee (principal) | CPT/HCPCS: 20610; J0665; J1100; J2003 ==

== ENCOUNTER 2025-01-20 10:23 | Outpatient (REF) | payer OTHER, SELFPAY | END 2025-01-20 10:24 | disposition home or self-care (01) | LOC: HO.LAB 10:23 | PROVIDERS: PCP Internal Medicine; Visit Provider Nurse Practitioner Family | DX: R31.29 Other microscopic hematuria (principal); R39.89 Other symptoms and signs involving the genitourinary system; N20.0 Calculus of kidney; R35.0 Frequency of micturition; Z79.51 Long term (current) use of inhaled steroids; Z79.3 Long term (current) use of hormonal contraceptives; Z79.899 Other long term (current) drug therapy | CPT/HCPCS: 51798; 81003; 88112 ==

== ENCOUNTER 2025-01-20 10:23 | Outpatient (AMB) | payer OTHER, SELFPAY ==
--- NOTE | 2025-01-20 10:25 | A.OFFVIS_ITS ---
Intake Visit Reasons: 3m follow up Intake Note: Patient is present for 3m follow up Urology Medications: Vitamin B6 Blood Thinner: none PVR: 0ml Lidar Analyst Required: No Accompanied by: Self / Same As Patient Allergies No Known Allergies Allergy (Verified 01/20/25 11:54) Medication List - Last Reconciled 01/20/25 by RAFITA Watts albuterol sulfate 90 mcg/actuation 2 puffs inhalation Q4-6H PRN amlodipine 5 mg PO DAILY 90 days atorvastatin 40 mg PO BEDTIME 90 days blood pressure monitor As directed bupropion HCl (smoking deter) 150 mg PO BID 90 days cholecalciferol (vitamin D3) 25 mcg PO DAILY 90 days cyclobenzaprine 5 mg PO BEDTIME PRN estradiol 0.01%(0.1mg/gram) (Estrace) 1 g vaginal 3XW 90 days fluticasone propionate 50 mcg/actuation (Flonase Allergy Relief) 1 spray intranasal DAILY 30 days ibuprofen 800 mg PO TID PRN lidocaine 5% 1 appl topical BEDTIME PRN 30 days lorazepam 0.5 mg PO BID PRN 30 days losartan 100 mg PO DAILY 90 days miconazole nitrate 2% (Monistat 7) 1 appful vaginal BEDTIME 7 days omeprazole 20 mg PO DAILY PRN 90 days pyridoxine (vitamin B6) 100 mg PO DAILY 90 days semaglutide (weight loss) (Wegovy) 0.25 mg (0.5 mL) subcut QWEEK 4 weeks HPI Comments Details: Charlette is a very pleasant 59-year-old female patient of Dr. Isaias Cade. She presents to the office today for a follow up of her microscopic hematuria. She has a PMH of depression, fibromyalgia, anxiety, hypertension, dyslipidemia, insomnia, and GERD. In discussion with the patient today she discusses her recent intentional weight loss of 40 lb in all helpful this has been in bilateral knee discomfort she had been experiencing. She reports she continues to follow-up with lead caster helper for ongoing pelvic pain she continues to experience. When asked she does report urinary frequency however does not find this bothersome. She otherwise denies urinary urgency, incontinence, nocturia, gross/visible hematuria, dysuria, foul smelling urine, changes to urinary stream, flank pain, fever, and or chills.She is happy with her current voiding parameters. In office urinalysis results reviewed with the patient today. 2+ microscopic hematuria. Patient with a longstanding history of microscopic hematuria. We have discussed further workup to include in office cystoscopy. She does also report noting abdominal cramping however is unsure if this is related to new changes to her weight loss medication or lead caster helper issue she has been experiencing. Previous workup has included a retroperitoneal ultrasound 02/21 noting right kidney with no hydronephrosis. 0.7 x 0.8 x 0.7 cm simple peripelvic cyst is seen in the lower pole. No imaging follow-up of this finding is recommended per radiology report. 0.5 x 0.3 x 0.4 cm cortical calcification in the lower pole is seen. Left kidney with no calculi, lesions, and or hydronephrosis noted. The bladder is distended and normal. Pre void bladder volume is approximately 165 mL. Postvoid bladder volume is approximately 2 mL. Discussed further workup given recurrent microscopic hematuria to include cy stoscopy versus surveillance monitoring. However, patient does not wish to undergo cystoscopy at this time as she does not feel symptoms are bothersome. Discussed at length further workup regarding microscopic hematuria given patient's previous smoking history. Discussed at length potential causes of microscopic hematuria. She otherwise denies any urinary issues or concerns at this time. Previous cytology: 12/22, 06/23, and 04/24 Negative for high-grade urothelial carcinoma [facility] Medical History Vaginal odor Empty sella Hiatal hernia Left flank pain Stress bladder incontinence, female Class 2 obesity with body mass index (BMI) of 37.0 to 37.9 in adult Chest pain Physical exam Class 2 obesity with body mass index (BMI) of 36.0 to 36.9 in adult Knee osteoarthritis Head injury Left knee pain Obesity (BMI 30-39.9) Pain and swelling of left lower leg Hospital discharge follow-up Dyslipidemia Insomnia Anxiety GERD (gastroesophageal reflux disease) Fibromyalgia HTN (hypertension) Surgical History History of hysterectomy History of lumpectomy of right breast History of breast implant History of bilateral tubal ligation Hx of abdominoplasty Family History Mother Breast cancer Alzheimer's disease Family/Other Breast cancer Father Myocardial infarction Social History Housing: House Alcohol intake: former Patient Tobacco Use Status: Former Tobacco user Tobacco use type: Cigarette Cigarettes Per Day: 4 e-Cigarette/Vaping Use: Never Used Second Hand Smoke Exposure: No service: No Current occupational status: employed Current occupation: Works for the [employer] Current occupational exposures/hazards: No Sexual orientation: Straight/Heterosexual Gender identity: Female Cognitive needs: No Hearing needs: No Vision needs: Yes (Glasses) Female Reproductive History Menstrual Age of Menarche: 8 Review of Systems Const All systems reviewed & are unremarkable except as noted in HPI and below Reports as per HPI Eyes Reports no additional complaints ENT Reports no additional complaints Card Reports as per HPI Resp Reports no additional complaints GI Reports as per HPI Reports as per HPI Musc Reports as per HPI Neuro Reports as per HPI Psych Reports as per HPI Endo Reports no additional complaints Pankaj/Lymph Reports no additional complaints Aller/Immun Reports no additional complaints Physical Exam Const General: cooperative, healthy appearing, comfortable, no acute distress, well de veloped, alert and awake Orientation/consciousness: patient oriented x3 Limitations: no limitations HEENT Head: Yes normal to inspection, Yes normocephalic and Yes atraumatic Ears: hearing grossly normal bilaterally Eyes General: appearance normal, both eyes and all related structures Neck Neck: Yes normal visual inspection and Yes trachea midline Chest Chest palpation & inspection: normal inspection of the chest Resp Effort & Inspection: normal respiratory effort and able to speak in complete sentences Cardio Rate: regular rate GI Inspection: Yes normal to inspection General: Yes no CVA tenderness Back/Spine/Pelvis Back: no CVA tenderness Skin General skin exam: no rashes or lesions noted Neuro General: patient oriented x3 Extrem General: Yes normal to inspection Psych Appearance: grossly normal and well kempt Mental Status: mental status grossly normal Speech and movement: Normal speech and movement present and Clear speech present Affect: normal affect Attitude: cooperative Thought process: Normal thought process present Thought content: Normal thought content present Insight: Fair insight present (Psych) Judgement: Fair judgement present (Psych) Assessment & Plan Assessment & Plan (1) Microscopic hematuria: Code(s): R31.29 - Other microscopic hematuria Category: Medical (2) Sensation of pressure in bladder area: Code(s): R39.89 - Other symptoms and signs involving the genitourinary system Category: Medical (3) Nephrolithiasis: Code(s): N20.0 - Calculus of kidney Category: Medical (4) Lower urinary tract symptoms: Code(s): R39.9 - Unspecified symptoms and signs involving the genitourinary system Category: Medical (5) Urinary frequency: Code(s): R35.0 - Frequency of micturition Category: Medical (6) Microscopic hematuria: Code(s): R31.29 - Other microscopic hematuria Category: Medical Plan In office urinalysis results reviewed with the patient today; as noted above. PVR 0 mL. Discussed at length potential causes for lower urinary tract symptoms patient is experiencing intermittently. Discussed at length further microscopic hematuria workup given urinary symptoms and previous smoking history; this was discussed at length; risks and benefits of surveillance monitoring verses further workup was discussed Discussed at length bladder triggers/irritants. Discussed cystoscopy for further assessment evaluation of microscopic hematuria verses question interstitial cystitis; however patient would like to think about this and will continue with surveillance monitoring at this time; information provided Start Estrace cream as discussed and prescribed. Follow-up in 3-6 months with PVR; or sooner with any issues, concerns, and or questions. Orders: Orders Urine Cytology Today R31.29 - Other microscopic hematuria Medications: New estradiol 0.01%(0.1mg/gram) (Estrace) Apply a pea-sized amount to urethra daily x1 month and then 3 times per week thereafter 1 g vaginal 3XW 42.5 grams 3RF 90 days Discontinued tirzepatide (weight loss) (Zepbound) Discontinued Reason: Insurance Denied 7.5 mg (0.5 mL) subcut QWEEK 4 weeks 2 mL 0RF E66.9 - Obesity, unspecified, Z68.37 - Body mass index [BMI] 37.0-37.9, adult tirzepatide (weight loss) (Zepbound) Discontinued Reason: Insurance Denied 10 mg (0.5 mL) subcut QWEEK 4 weeks 2 mL 0RF Patient Instructions: The patient had an opportunity to ask questions regarding the treatment plan. All questions were answered. Physical exam, labs, and imaging were discussed and reviewed in detail. As well as risks, benefits, and discussion of treatment choices. No major barriers to understanding were identified. The patient expressed understanding and agreement with the above treatment plan. The patient was made aware they should contact our office by phone for worsening of their current condition, the appearance of new symptoms, or with any questions or concerns. Compliance is encouraged with any medications and follow up testing that is ordered. It is a privilege to be allowed the opportunity to participate in? your urological care.? Again, if you have any questions or concerns If you have any questions or concerns please do not hesitate to contact me. The office is [phone]. This note is constructed using voice recognition software. While every effort has been made to ensure accuracy senior administrator support errors may have been included. Yours sincerely, RAFITA Watts Coding Level of Care Code Est Pt Level 4 (45264) Complex EM visit Add On G2211 Diagnoses Microscopic hematuria R31.29 Sensation of pressure in bladder area R39.89 Nephrolithiasis N20.0 Lower urinary tract symptoms R39.9 Urinary frequency R35.0
--- OUTSIDE RECORDS SUMMARY | 2025-01-20 11:30 | XMS_ITS | Patient Health Record ---
Author Organization [facility] [place] Address [address] [facility] [place] [address] Care Team Providers Care Retail Sales Specialist Name Role Phone Itzel Carranza MD Primary Care Provider Unavail ken Macario Sam Unavailable [phone] Allergies No Known Allergies Reason For Referral [...] Insured Coverage Start Date Coverage End Date [facility] [address] [facility] [phone] [id number] Charlette Flores Self - patient is the insured Medical (General) History Medical History History ICD Code Anxiety chest pain Hyperlipidemia Fibromyalgia Reflux ( GERD) Hiatal hernia High blood pressure Insomnia osteoarthritis Incontinence Back,Hip,and Knee pain covid-19 Depression Headaches/Migraines Surgical History Surgery Date(Month/Year) bilateral tubal ligation (BTL) breast implant 2010 hysterectomy lumpectomy, right breast abdominoplasty 2006
--- OUTSIDE RECORDS SUMMARY | 2025-01-20 11:30 | XMS_ITS | Clinical Summary ---
Author Organization [facility] it Address [address] [place] [address] Care Team Providers Care Nuclear Reactor Operator Name Role Phone Itzel Cade MD Primary Care Provider [phone] Surgical History Surgery Date Site/Laterality Comments OTHER [...] 2) 2014 Colorectal Cancer Screening: Colonoscopy 06/04/2022 HIV Screening 06/04/2022 Hepatitis C Screening 06/04/2022 Social Influencers of Health Screening 06/04/2022 COVID-19 Vaccine (3 2023-2 5 season) 2024 12/21/2020, 09/09/2020 Depression Screening 07/02/2024 Influenza Vaccine (#1) 2025 RSV Immunization Adult Patients (1 - [...] age to complete this topic Care Teams Nuclear Reactor Operator Relationship Specialty Start Date End Date Itzel Cade MD [address] [place] [address] , [address] [facility] D[facility]A: [facility] [place] Mcmullen PCP - General Internal Medicine 01/25/21
== END 2025-01-20 11:23 | disposition home or self-care (01) ==
LOC: HO.HUSH 10:24
PROVIDERS: PCP Internal Medicine; Visit Provider Nurse Practitioner Family
DX: R31.29 Other microscopic hematuria (principal); R39.89 Other symptoms and signs involving the genitourinary system; N20.0 Calculus of kidney; R39.9 Unspecified symptoms and signs involving the genitourinary system; R35.0 Frequency of micturition; Z13.9 Encounter for screening, unspecified
CPT/HCPCS: 99214; G2211

== ENCOUNTER 2025-03-10 07:30 | Outpatient (AMB) | payer OTHER, SELFPAY ==
--- OUTSIDE RECORDS SUMMARY | 2025-03-10 07:33 | XMS_ITS | Clinical Summary ---
Author Organization [facility] it Address [address] [place] [address] Care Team Providers Care Supervisor Taping Name Role Phone Itzel Cade MD Primary Care Provider [phone] Surgical History Surgery Date Site/Laterality Comments OTHER SURGICAL HISTORY PROCEDURE: IMPLANT BREAST SILICONE/EQ; COMMENT: 2010 TUBAL LIGATION PROCEDURE: HISTORICAL TUBAL LIGATION OTHER SURGICAL HISTORY PROCEDURE: HISTORICAL PANNICULECTOMY OTHER SURGICAL HISTORY 05/02/2014 PROCEDURE: HYSTEROSCOPY, DIAGNOSTIC; COMMENT: polypectomy - hyperplastic polyp BREAST BIOPSY PROCEDURE: BX BREAST; PERC NEEDLE CORE W/IMAG GUID; COMMENT: lt neg BREAST SURGERY PROCEDURE: [place] UNLISTED PROCEDURE BREAST; COMMENT: 2010 silicone implants [...] 06/04/2022 Social Influencers of Health Screening 06/04/2022 Depression Screening 07/02/2024 COVID-19 Vaccine (3 - 2024-2 6 season) 2025 12/21/2020, 09/09/2020 Influenza Vaccine (#1) 2025 RSV Immunization Adult [...] age to complete this topic Care Teams Supervisor Taping Relationship Specialty Start Date End Date Itzel Cade MD [address] [place] [address] , [address] [facility] D[facility]: [facility] [place] Mcmullen PCP - General Internal Medicine 01/25/21
--- OUTSIDE RECORDS SUMMARY | 2025-03-10 07:33 | XMS_ITS | Patient Health Record ---
Author Organization [facility] Jen [place] Address [address] [facility] [place] [address] Care Team Providers Care Disbursing Agent Name Role Phone Itzel Carranza MD Primary Care Provider Unavail ken Macario Sma Unavailable [phone] Allergies No Known Allergies Reason For Referral [...] Insured Coverage Start Date Coverage End Date [facility] [address] [facility] [phone] [id number] Charlette Flores Self - patient is the insured Medical (General) History Medical History History ICD Code Anxiety chest pain Hyperlipidemia Fibromyalgia Reflux ( GERD) Hiatal hernia High blood pressure Insomnia osteoarthritis Incontinence Back,Hip,and Knee pain covid-19 Depression Headaches/Migraines Surgical History Surgery Date(Month/Year) bilateral tubal ligation (BTL) breast implant 2010 hysterectomy lumpectomy, right breast abdominoplasty 2006
[2025-03-10 07:41] VITALS: BP 114/68; PULSE 70; O2SAT 98; BMI 27.4
--- NOTE | 2025-03-10 07:41 | MHC.PC.OV ---
Vital Signs 03/10/25 07:41 Height 5 ft 2 in Weight 150 lb BMI 27.4 BP 114/68 Blood Pressure Location Lt brachial Position Sitting Pulse 70 Pulse Source Pulse Oximeter Pulse Oximetry (%) 98 Oxygen Delivery Method Room Air Intake Visit Reasons: bp Flanging Machine Operator Required: No Accompanied by: Self / Same As Patient Allergies No Known Allergies Allergy (Verified 03/10/25 07:53) Medication List - Last Reconciled 03/10/25 by Itzel Cade MD albuterol sulfate 90 mcg/actuation 2 puffs inhalation Q4-6H PRN amlodipine 5 mg PO DAILY 90 days atorvastatin 40 mg PO BEDTIME 90 days blood pressure monitor As directed bupropion HCl (smoking deter) 150 mg PO BID 90 days cholecalciferol (vitamin D3) 25 mcg PO DAILY 90 days cyclobenzaprine 5 mg PO BEDTIME PRN estradiol 0.01%(0.1mg/gram) (Estrace) 1 g vaginal 3XW 90 days fluticasone propionate 50 mcg/actuation (Flonase Allergy Relief) 1 spray intranasal DAILY 30 days ibuprofen 800 mg PO TID PRN lidocaine 5% 1 appl topical BEDTIME PRN 30 days lorazepam 0.5 mg PO BID PRN 30 days losartan 100 mg PO DAILY 90 days miconazole nitrate 2% (Monistat 7) 1 appful vaginal BEDTIME 7 days omeprazole 20 mg PO DAILY PRN 90 days pyridoxine (vitamin B6) 100 mg PO DAILY 90 days semaglutide (weight loss) (Wegovy) 0.25 mg (0.5 mL) subcut QWEEK 4 weeks Tobacco use date assessed: 03/10/25 Dental Screening Dental Screen Date: 10/08/24 HPI HPI Comments History of Present Illness Details The patient is a 59-year-old female presenting with the management of chronic conditions including essential hypertension, pure hypercholesterolemia, generalized anxiety disorder, and obesity. She has a history of essential hypertension, for which she is compliant with her medications, including amlodipine 5 mg and losartan 100 mg. Her blood pressure is well controlled, and she denies any chest pain or dyspnea. The patient also has pure hypercholesterolemia, managed with atorvastatin, and her cholesterol levels were well controlled in the last lab results from September. She experiences generalized anxiety disorder, for which she uses benzodiazepines as needed, being aware of the potential for addiction, sedation, and dementia. Her PHQ-9 score is 7, indicating mild recurrent major depression, which is stable with bupropion. The patient has a history of obesity, which is well controlled with GLP-1 receptor agonist Wegovy, and the dosage is being increased to 0.5 mg due to good tolerance. She reports dysuria, and a urinalysis showed hematuria and mild white blood cells, leading to a urine culture being sent. She follows up with urology for nephrolithiasis and takes vitamin B6 for prophylaxis. [facility] Medical History (Updated 03/10/25 @ 08:20 by Itzel Cade MD) Vaginal odor Empty sella Hiatal hernia Left flank pain Stress bladder incontinence, female Class 2 obesity with body mass index (BMI) of 37.0 to 37.9 in adult Chest pain Physical exam Class 2 obesity with body mass index (BMI) of 36.0 to 36.9 in adult Knee osteoarthritis Head injury Left knee pain Obesity (BMI 30-39.9) Pain and swelling of left lower leg Hospital discharge follow-up Dyslipidemia Insomnia Anxiety GERD (gastroesophageal reflux disease) Fibromyalgia HTN (hypertension) Surgical History History of hysterectomy History of lumpectomy of right breast History of breast implant History of bilateral tubal ligation Hx of abdominoplasty Family History Mother Breast cancer Alzheimer's disease Family/Other Breast cancer Father Myocardial infarction Social History Housing: House Alcohol intake: former Patient Tobacco Use Status: Former Tobacco user Tobacco use type: Cigarette Cigarettes Per Day: 4 e-Cigarette/Vaping Use: Never Used Second Hand Smoke Exposure: No service: No Current occupational status: employed Current occupation: Works for the [employer] Current occupational exposures/hazards: No Sexual orientation: Straight/Heterosexual Gender identity: Female Cognitive needs: No Hearing needs: No Vision needs: Yes (Glasses) Female Reproductive History Menstrual Age of Menarche: 8 Questionnaire PHQ-9 Over the last 2 weeks, how often have you been bothered by any of the following problems? 1. Little interest or pleasure in doing things: nearly every day 2. Feeling down, depressed, or hopeless: not at all 3. Trouble falling or staying asleep, or sleeping too much: nearly every day 4. Feeling tired or having little energy: several days 5. Poor appetite or overeating: not at all 6. Feeling bad about yourself - or that you are a failure or have let yourself or your family down: not at all 7. Trouble concentrating on things, such as reading the newspaper or watching television: not at all 8. Moving or speaking so slowly that other people could have noticed. Or the opposite - being so fidgety or restless that you have been moving around a lot more than usual: not at all 9. Thoughts that you would be better off or of hurting yourself in some way: not at all Total score: 7 Depression Screening Interpretation: Positive Depression Screening Follow-up: Existing condition, In treatment and Follow-up Visit Requested Depression Screening Done: Yes 90362 - PHQ-9 Billing: Yes Source: Developed by Drs. Marck Bruce, Anaid Ro, Timo Rosen and colleagues, with an educational annemarie from [email or web address]. Thrive Questionnaire Date Thrive assessed: 10/08/24 I am a: Patient What is your living situation today?: I have a steady place to live Within the past 12 months, did the food you bought not last and you didn't have the money to get more?: I choose not to answer this question Within the past 12 months, did you worry whether your food would run out before you got money to buy more?: I choose not to answer this question Do you have trouble paying for medicines?: I choose not to answer this question Do you have trouble getting transportation to medical appointments?: No Do you have trouble paying your heating and electricity bill?: Yes Do you have trouble taking care of your child, family member or friend?: No Do you have trouble with day-to-day activities such as bathing, preparing meals, shopping, managing finances, etc.?: I choose not to answer this question Are you currently unemployed and looking for a job?: Yes Are you interested in more education?: I choose not to answer this question Please select the resources that you would like help with: None Currently or been in a relationship where the following occur: I choose not to answer THRIVE Score: 1 AUDIT C Alcohol Use Questionnaire (AUDIT-C) 1. How often do you have a drink containing alcohol?: Never 3. How often do you have six or more drinks on one occasion?: Never Total Score: 0 Score Reviewed/Action Taken: No SHAYLEE-7 AMB Questionnaire SHAYLEE-7 Date SHAYLEE - 7 assessed: 10/08/24 Source: Developed by Drs. Marck Bruce, Anaid Ro, Timo Rosen and colleagues, with an educational annemarie from [email or web address]. Review of Systems Const All systems reviewed & are unremarkable except as noted in HPI and below Card Denies chest pain at rest, Denies chest pain with activity, Denies edema, Denies irregular heart rhythm, Denies claudication, Denies dyspnea, Denies dyspnea on exertion, Denies orthopnea, Denies paroxysmal nocturnal dyspnea and Denies slow heart rate Resp Denies cough, Denies dyspnea and Denies dyspnea on exertion GI Denies abdominal pain, Denies change in bowel habits, Denies excessive flatus, Denies nausea and Denies vomiting Physical exam (Primary Care) Vital Signs: Last Vital Signs Pulse 70 03/10/25 07:41 BP 114/68 03/10/25 07:41 Pulse Ox 98 03/10/25 07:41 Oxygen Delivery Method Room Air 03/10/25 07:41 BMI result Body Mass Index 27.4 Tobacco/Smoking Status: Tobacco use Status Tobacco use date assessed 03/10/25 03/10/25 07:46 Patient Tobacco Use Status Former Tobacco user 03/10/25 07:46 Tobacco use type Cigarette 03/10/25 07:46 e-Cigarette/Vaping Use Never Used 03/10/25 07:46 PHQ-9: PHQ-9 Score PHQ-9: Total score 7 03/10/25 07:55 Depression Screening Interpretation: Positive Depression Screening Follow-up: Existing condition, In treatment and Follow-up Visit Requested Thrive Assessment: Date of Thrive Assessment Date Thrive assessed 10/08/24 03/10/25 07:46 Currently or been in a relationship where the following occur: I choose not to answer Resp Effort & Inspection: normal respiratory effort Auscultation: clear to auscultation bilaterally Cardio Jugular venous distension: no JVD Rate: regular rate Rhythm: regular rhythm Heart sounds: S1 normal heart sound present and S2 normal heart sound present Extrem General: Yes full ROM Results AMB Urinalysis, Automated UA Leukoctes 15 Rod/uL Last Edit by Lucille Anthony, ABBY on 03/10/25 08:05 UA Nitrite Negative Last Edit by Lucille Anthony, [facility] on 03/10/25 08:05 UA Urobilinogen 0.2 mg/dL Last Edit by Lucille Anthony, [facility] on 03/10/25 08:05 UA Protein 0 mg/dL Last Edit by Lucille Anthony, [facility] on 03/10/25 08:05 UA pH 6.0 Last Edit by Lucille Anthony, [facility] on 03/10/25 08:05 UA Blood 80 Roderick/uL Last Edit by Lucille Anthony, [facility] on 03/10/25 08:05 UA Specific [place] 1.020 Last Edit by Lucille Anthony, [facility] on 03/10/25 08:05 UA Ketone Negative Last Edit by Lucille Anthony, [facility] on 03/10/25 08:05 UA Bilirubin 0 mg/dL Last Edit by Lucille Anthony, [facility] on 03/10/25 08:05 UA Glucose 0 mg/dL Last Edit by Lucille Anthony, [facility] on 03/10/25 08:05 Coding Level of Care Code Est Pt Level 4 (33007) Complex EM visit Add On G2211 Diagnoses Mild major depression F32.0 SHAYLEE (generalized anxiety disorder) F41.1 Essential hypertension I10 Hypertension type: essential hypertension Dyslipidemia E78.5 Gastroesophageal reflux disease, unspecified whether esophagitis present K21.9 Esophagitis presence: esophagitis presence not specified Nephrolithiasis N20.0 Hypovitaminosis D E55.9 Additional Codes PHQ-9 - 50219 - PHQ-9 Billing: Yes ([id number]) Time Spent (min) 23 Assessment & Plan Assessment & Plan (1) Mild major depression: Code(s): F32.0 - Major depressive disorder, single episode, mild Category: Medical (2) SHAYLEE (generalized anxiety disorder): Code(s): F41.1 - Generalized anxiety disorder Category: Medical (3) HTN (hypertension): Code(s): I10 - Essential (primary) hypertension Category: Medical Qualifiers: Hypertension type: essential hypertension Qualified Code(s): I10 - Essential (primary) hypertension (4) Dyslipidemia: Code(s): E78.5 - Hyperlipidemia, unspecified Category: Medical (5) GERD (gastroesophageal reflux disease): Code(s): K21.9 - Gastro-esophageal reflux disease without esophagitis Category: Medical Qualifiers: Esophagitis presence: esophagitis presence not specified Qualified Code(s): K21.9 - Gastro-esophageal reflux disease without esophagitis (6) Nephrolithiasis: Code(s): N20.0 - Calculus of kidney Category: Medical (7) Hypovitaminosis D: Code(s): E55.9 - Vitamin D deficiency, unspecified Category: Medical Plan Plan Patient was informed and verbally consented to the use of an ambient scribe for clinic note documentation during this visit. 1. Essential (primary) hypertension I10 The patient is currently on amlodipine 5 mg and losartan 100 mg for blood pressure management, which is well controlled. 2. Pure hypercholesterolemia, unspecified E78.00 The patient is taking atorvastatin, and her cholesterol levels were well controlled in the last lab results. 3. Generalized anxiety disorder F41.1 The patient uses benzodiazepines as needed for anxiety, with awareness of potential side effects. 4. Overweight E66.3 The patient is on GLP-1 receptor agonist Wegovy, with an increased dosage to 0.5 mg due to good tolerance. 5. Major depressive disorder, recurrent, mild F33.0 HCC 59 The patient's depression is stable with bupropion, and her PHQ-9 score is 7. 6. Hematuria, unspecified R31.9 The patient reports dysuria, and urinalysis showed hematuria and mild white blood cells; urine culture was sent. 7. Calculus of kidney N20.0 The patient follows up with urology for nephrolithiasis and takes vitamin B6 for prophylaxis. Orders: Orders Urine Culture Today R30.0 - Dysuria AMB Urinalysis Automated Today Z13.9 - Encounter for screening, unspecified Lipid Panel Today E78.5 - Hyperlipidemia, unspecified Vitamin D 25-OH Total Today E55.9 - Vitamin D deficiency, unspecified Comprehensive [place]. Panel Fast Today I10 - Essential (primary) hypertension Referrals Dermatology Referral L81.1 - Chloasma Medications: New semaglutide (weight loss) (Wegovy) administer weeks 5 through 8 of therapy 0.5 mg (0.5 mL) subcut QWEEK 2 mL 0RF 4 weeks I10 - Essential (primary) hypertension
== END 2025-03-10 08:14 | disposition home or self-care (01) ==
LOC: HO.HMCH 07:30
PROVIDERS: PCP Internal Medicine; Visit Provider Internal Medicine
DX: F32.0 Major depressive disorder, single episode, mild (principal); F41.1 Generalized anxiety disorder; I10 Essential (primary) hypertension; E78.5 Hyperlipidemia, unspecified; K21.9 Gastro-esophageal reflux disease without esophagitis; N20.0 Calculus of kidney; E55.9 Vitamin D deficiency, unspecified; Z13.9 Encounter for screening, unspecified

== ENCOUNTER 2025-03-10 07:30 | Outpatient (REF) | payer OTHER, SELFPAY | END 2025-03-10 07:31 | disposition home or self-care (01) | LOC: HO.LAB 07:30 | PROVIDERS: PCP Internal Medicine; Visit Provider Internal Medicine | DX: R30.0 Dysuria (principal); F32.0 Major depressive disorder, single episode, mild; F41.1 Generalized anxiety disorder; I10 Essential (primary) hypertension; E78.5 Hyperlipidemia, unspecified; K21.9 Gastro-esophageal reflux disease without esophagitis; N20.0 Calculus of kidney; E55.9 Vitamin D deficiency, unspecified | CPT/HCPCS: 81003; 87086; 96127 ==

== ENCOUNTER 2025-03-11 08:00 | Outpatient (REF) | payer OTHER, SELFPAY ==
[2025-03-11 09:17] LABS: Appearance Urine Clear; Glucose Urine UA Negative (Negative); PH 6.0 (5.0-9.0); Specific Gravity - Urine 1.025 (1.005-1.025); UMIC TRIGGER UACC YES
[2025-03-11 10:06] LABS: Alanine Aminotransferase 17 U/L (0-31); Albumin Level 4.5 g/dL (3.5-5.0); Alkaline Phosphatase 64 U/L (39-117); Anion Gap 11 (12-20); Aspartate Amino Transferase 22 U/L (5-31); Blood Urea Nitrogen 24 mg/dL (9-16); Calcium 9.6 mg/dL (8.4-10.2); Carbon Dioxide 26 mmol/L (22-29); Chloride 110 mmol/L (96-108); Cholesterol 175 mg/dL (<200); Estimated Glomerular Filt Rate 58; HDL Cholesterol 56 mg/dL (>40); Potassium 4.2 mmol/L (3.3-5.1); Sodium 143 mmol/L (135-145); Total Protein 6.7 g/dL (6.5-8.0); Triglycerides 87 mg/dL (<150)
== END 2025-03-11 08:01 | disposition home or self-care (01) ==
LOC: HO.LAB 08:00
PROVIDERS: PCP Internal Medicine; Visit Provider Internal Medicine
DX: Z00.00 Encounter for general adult medical examination without abnormal findings (principal); E55.9 Vitamin D deficiency, unspecified; E78.5 Hyperlipidemia, unspecified; I10 Essential (primary) hypertension; R30.0 Dysuria
CPT/HCPCS: 36415; 80053; 80061; 81001; 81003; 82306

== ENCOUNTER 2025-04-22 07:47 | Outpatient (AMB) | payer OTHER, SELFPAY ==
--- NOTE | 2025-04-22 07:49 | MHC.OFFVIS ---
Intake Visit Reasons: 4M/PVR Intake Note: Patient is present for 4m follow up Urology Medications: Vitamin B6,Estradiol Blood Thinner: none PVR: 0ml Analytics Analyst Required: No Accompanied by: Self / Same As Patient Allergies No Known Allergies Allergy (Verified 04/22/25 09:02) Medication List - Last Reconciled 04/22/25 by LORETO WattsP- albuterol sulfate 90 mcg/actuation 2 puffs inhalation Q4-6H PRN amlodipine 5 mg PO DAILY 90 days atorvastatin 40 mg PO BEDTIME 90 days blood pressure monitor As directed bupropion HCl (smoking deter) 150 mg PO BID 90 days cholecalciferol (vitamin D3) 25 mcg PO DAILY 90 days cyclobenzaprine 5 mg PO BEDTIME PRN estradiol 0.01%(0.1mg/gram) (Estrace) 1 g vaginal 3XW 90 days fluticasone propionate 50 mcg/actuation (Flonase Allergy Relief) 1 spray intranasal DAILY 30 days ibuprofen 800 mg PO TID PRN lidocaine 5% 1 appl topical BEDTIME PRN 30 days lorazepam 0.5 mg PO BID PRN 30 days losartan 100 mg PO DAILY 90 days miconazole nitrate 2% (Monistat 7) 1 appful vaginal BEDTIME 7 days omeprazole 20 mg PO DAILY PRN 90 days pyridoxine (vitamin B6) 100 mg PO DAILY 90 days semaglutide (weight loss) (Wegovy) 0.25 mg (0.5 mL) subcut QWEEK 4 weeks semaglutide (weight loss) (Wegovy) 0.5 mg (0.5 mL) subcut QWEEK 4 weeks HPI Comments Details: Charlette is a very pleasant 60-year-old female patient of Dr. Isaias Cade. She presents to the office today for a follow up of her microscopic hematuria. She has a PMH of depression, fibromyalgia, anxiety, hypertension, dyslipidemia, insomnia, and GERD. In discussion with the patient today she reports she continues to follow-up with ore trimmer for ongoing lower pelvic discomfort she continues to experience. In review of patient's chart it appears an MRI of the pelvis 02/22 status post hysterectomy without MR findings to explain pelvic/perineal pain. She reports she was unable to obtain Estrace cream as prescribed during last office visit due to increase in co-pay. She does continue to experience lower abdominal pressure and discomfort. We did discuss cystoscopy for further assessment evaluation as patient with a longstanding history of microscopic hematuria with bladder pressure. However patient continues to decline procedure at this time. In office urinalysis results reviewed with the patient today 2+ microscopic hematuria. Previous workup has included a retroperitoneal ultrasound 02/21 noting right kidney with no hydronephrosis. 0.7 x 0.8 x 0.7 cm simple peripelvic cyst is seen in the lower pole. No imaging follow-up of this finding is recommended per radiology report. 0.5 x 0.3 x 0.4 cm cortical calcification in the lower pole is seen. Left kidney with no calculi, lesions, and or hydronephrosis noted. The bladder is distended and normal. Pre void bladder volume is approximately 165 mL. Postvoid bladder volume is approximately 2 mL. Discussed at length further workup regarding microscopic hematuria given patient's previous smoking history. Discussed at length potential causes of microscopic hematuria as well as bladder pressure she continues to report/experience she denies urinary urgency, urinary frequency, incontinence, nocturia, hematuria, dysuria, foul smelling urine, changes to urinary stream, flank pain, fever, and or chills. She discusses her intentional weight loss with GLP-1. She otherwise denies any urinary issues or concerns at this time. Previous cytology: 12/22, 06/23, 04/24, 01/23 Negative for high-grade urothelial carcinoma [facility] Medical History Vaginal odor Empty sella Hiatal hernia Left flank pain Stress bladder incontinence, female Class 2 obesity with body mass index (BMI) of 37.0 to 37.9 in adult Chest pain Physical exam Class 2 obesity with body mass index (BMI) of 36.0 to 36.9 in adult Knee osteoarthritis Head injury Left knee pain Obesity (BMI 30-39.9) Pain and swelling of left lower leg Hospital discharge follow-up Dyslipidemia Insomnia Anxiety GERD (gastroesophageal reflux disease) Fibromyalgia HTN (hypertension) Surgical History History of hysterectomy History of lumpectomy of right breast History of breast implant History of bilateral tubal ligation Hx of abdominoplasty Family History Mother Breast cancer Alzheimer's disease Family/Other Breast cancer Father Myocardial infarction Social History Housing: House Alcohol intake: former Patient Tobacco Use Status: Former Tobacco user Tobacco use type: Cigarette Cigarettes Per Day: 4 e-Cigarette/Vaping Use: Never Used Second Hand Smoke Exposure: No service: No Current occupational status: employed Current occupation: Works for the [employer] Current occupational exposures/hazards: No Sexual orientation: Straight/Heterosexual Gender identity: Female Cognitive needs: No Hearing needs: No Vision needs: Yes (Glasses) Female Reproductive History Menstrual Age of Menarche: 8 Review of Systems Const All systems reviewed & are unremarkable except as noted in HPI and below Reports as per HPI Eyes Reports no additional complaints ENT Reports no additional complaints Card Reports as per HPI Resp Reports no additional complaints GI Reports as per HPI Reports as per HPI Musc Reports as per HPI Neuro Reports as per HPI Psych Reports as per HPI Endo Reports no additional complaints Pankaj/Lymph Reports no additional complaints Aller/Immun Reports no additional complaints Physical Exam Const General: cooperative, healthy appearing, comfortable, no acute distress, well developed, alert and awake Orientation/consciousness: patient oriented x3 Limitations: no limitations HEENT Head: Yes normal to inspection, Yes normocephalic and Yes atraumatic Ears: hearing grossly normal bilaterally Eyes General: appearance normal, both eyes and all related structures Neck Neck: Yes normal visual inspection and Yes trachea midline Chest Chest palpation & inspection: normal inspection of the chest Resp Effort & Inspection: normal respiratory effort and able to speak in complete sentences Cardio Rate: regular rate GI Inspection: Yes normal to inspection General: Yes no CVA tenderness Back/Spine/Pelvis Back: no CVA tenderness Skin General skin exam: no rashes or lesions noted Neuro General: patient oriented x3 Extrem General: Yes normal to inspection Psych Appearance: grossly normal and well kempt Mental Status: mental status grossly normal Speech and movement: Normal speech and movement present and Clear speech present Affect: normal affect Attitude: cooperative Thought process: Normal thought process present Thought content: Normal thought content present Insight: Fair insight present (Psych) Judgement: Fair judgement present (Psych) Office Procedures Post Void Residual Post Residual Void Post Void Residual (PVR): 0 [id number] Void Residual by ultrasound Results AMB Urinalysis, Automated UA Leukoctes 0 Rod/uL Last Edit by Brittney Colon, CCMA on 04/22/25 07:58 UA Nitrite Negative Last Edit by Brittney Colon, [facility] on 04/22/25 07:58 UA Urobilinogen 0.2 mg/dL Last Edit by Brittney Colon, [facility] on 04/22/25 07:58 UA Protein 0 mg/dL Last Edit by Brittney Colon, [facility] on 04/22/25 07:58 UA pH 7.0 Last Edit by Brittney Colon, [facility] on 04/22/25 07:58 UA Blood 80 Roderick/uL Last Edit by Brittney Colon, [facility] on 04/22/25 07:58 UA Specific [place] 1.015 Last Edit by Brittney Colon, [facility] on 04/22/25 07:58 UA Ketone Negative Last Edit by Brittney Colon, [facility] on 04/22/25 07:58 UA Bilirubin 0 mg/dL Last Edit by Brittney Colon, [facility] on 04/22/25 07:58 UA Glucose 0 mg/dL Last Edit by Brittney Colon, [facility] on 04/22/25 07:58 Results Reviewed Results Reviewed: Laboratory Last Values Urine pH (Auto) 7.0 04/22/25 07:57 Specific [place] (Auto) 1.015 04/22/25 07:57 Urine Protein (Auto) 0 mg/dL 04/22/25 07:57 Glucose (UA)(Auto) 0 mg/dL 04/22/25 07:57 Urine Ketones (Auto) Negative 04/22/25 07:57 Urine Blood (Auto) 80 Roderick/uL 04/22/25 07:57 Urine Nitrite (Auto) Negative 04/22/25 07:57 Urine Bilirubin (Auto) 0 mg/dL 04/22/25 07:57 Urine Urobilinogen (Auto) 0.2 mg/dL 04/22/25 07:57 Leukocyte Esterase (Auto) 0 Rod/uL 04/22/25 07:57 Assessment & Plan Assessment & Plan (1) Microscopic hematuria: Code(s): R31.29 - Other microscopic hematuria Category: Medical (2) Sensation of pressure in bladder area: Code(s): R39.89 - Other symptoms and signs involving the genitourinary system Category: Medical (3) Nephrolithiasis: Code(s): N20.0 - Calculus of kidney Category: Medical (4) Lower urinary tract symptoms: Code(s): R39.9 - Unspecified symptoms and signs involving the genitourinary system Category: Medical (5) Urinary frequency: Code(s): R35.0 - Frequency of micturition Category: Medical (6) Microscopic hematuria: Code(s): R31.29 - Other microscopic hematuria Category: Medical Plan In office urinalysis results reviewed with the patient today; as noted above. PVR 0 mL. Discussed at length potential causes for lower urinary tract symptoms patient is experiencing. Discussed at length further microscopic hematuria workup given urinary symptoms and previous smoking history; this was discussed at length; risks and benefits of surveillance monitoring verses further workup was discussed Discussed at length bladder triggers/irritants. Discussed cystoscopy for further assessment evaluation of microscopic hematuria verses question interstitial cystitis; however patient would like to think about this and will continue with surveillance monitoring at this time; information provided Start VESIcare as discussed and prescribed. Will obtain retroperitoneal ultrasound for further assessment evaluation. Follow-up in 1-3 months with imaging and PVR; or sooner with any issues, concerns, and or questions. Orders: Orders US retroperitoneal comp Today N20.0 - Calculus of kidney, R31.29 - Other microscopic hematuria, R39.89 - Other symptoms and signs involving the genitourinary system, R39.9 - Unspecified symptoms and signs involving the genitourinary system Medications: New solifenacin (Vesicare) 5 mg PO DAILY 30 tabs 3RF 30 days Patient Instructions: The patient had an opportunity to ask questions regarding the treatment plan. All questions were answered. Physical exam, labs, and imaging were discussed and reviewed in detail. As well as risks, benefits, and discussion of treatment choices. No major barriers to understanding were identified. The patient expressed understanding and agreement with the above treatment plan. The patient was made aware they should contact our office by phone for worsening of their current condition, the appearance of new symptoms, or with any questions or concerns. Compliance is encouraged with any medications and follow up testing that is ordered. It is a privilege to be allowed the opportunity to participate in? your urological care.? Again, if you have any questions or concerns If you have any questions or concerns please do not hesitate to contact me. The office is [phone]. This note is constructed using voice recognition software. While every effort has been made to ensure accuracy clinical faculty errors may have been included. Yours sincerely, ELIN Watts-GILMER Coding Level of Care Code Est Pt Level 4 (78382) Diagnoses Microscopic hematuria R31.29 Sensation of pressure in bladder area R39.89 Nephrolithiasis N20.0 Lower urinary tract symptoms R39.9 Urinary frequency R35.0 CPT Codes Post Residual Void - PVR CPT Code: [id number] Void Residual by ultrasound ([id number])
--- OUTSIDE RECORDS SUMMARY | 2025-04-22 07:50 | XMS_ITS | Patient Health Record ---
Author Organization [facility] Address [address] [place] [address] Care Team Providers Care Laundry Operator Name Role Phone Itzel Carranza MD Primary Care Provider Unavail able marcelluswaliBarronamado Sam Unavailable [phone] Allergies No Known Allergies Reason For Referral [...] Insured Coverage Start Date Coverage End Date [facility] [address] [place] [address] [phone] [id number] Charlette Flores Self - patient is the insured Medical (General) History Medical History History ICD Code Anxiety chest pain Hyperlipidemia Fibromyalgia Reflux ( GERD) Hiatal hernia High blood pressure Insomnia osteoarthritis Incontinence Back,Hip,and Knee pain covid-19 Depression Headaches/Migraines Surgical History Surgery Date(Month/Year) bilateral tubal ligation (BTL) breast implant 2010 hysterectomy lumpectomy, right breast abdominoplasty 2006
--- OUTSIDE RECORDS SUMMARY | 2025-04-22 07:50 | XMS_ITS | Clinical Summary ---
Author Organization [facility] it Address [address] [place] [address] Care Team Providers Care Bullet Charging Machine Operator Name Role Phone Itzel Cade MD Primary Care Provider [phone] Surgical History Surgery Date Site/Laterality Comments OTHER SURGICAL HISTORY PROCEDURE: IMPLANT BREAST SILICONE/EQ; COMMENT: 2010 TUBAL LIGATION PROCEDURE: HISTORICAL TUBAL LIGATION OTHER SURGICAL HISTORY PROCEDURE: HISTORICAL PANNICULECTOMY OTHER SURGICAL HISTORY 05/02/2014 PROCEDURE: HYSTEROSCOPY, DIAGNOSTIC; COMMENT: polypectomy - hyperplastic polyp BREAST BIOPSY PROCEDURE: BX BREAST; PERC NEEDLE CORE W/IMAG GUID; COMMENT: lt neg BREAST SURGERY PROCEDURE: SD UNLISTED PROCEDURE BREAST; COMMENT: 2010 silicone implants [...] Last Done Comments Breast Cancer Screening 1964 Colorectal Cancer Screening: Colonoscopy 1964 DTaP,Tdap,and Td Vaccines (1 - Tdap) 1983 Pneumococcal Vaccine: 50+ Years (1 of 1 - PCV) 2014 Zoster Vaccines (1 of 2) 2014 HIV Screening 06/04/2022 Hepatitis C Screening 06/04/2022 [...] age to complete this topic Care Teams Bullet Charging Machine Operator Relationship Specialty Start Date End Date Itzel Cade MD [address] [place] [address] , [address] [facility] D/B/A: [facility] DEN[place] Mmcullen PCP - General Internal Medicine 01/25/21
== END 2025-04-22 08:31 | disposition home or self-care (01) ==
LOC: HO.HUSH 07:48
PROVIDERS: PCP Internal Medicine; Visit Provider Nurse Practitioner Family
DX: R31.29 Other microscopic hematuria (principal); R39.89 Other symptoms and signs involving the genitourinary system; N20.0 Calculus of kidney; R39.9 Unspecified symptoms and signs involving the genitourinary system; R35.0 Frequency of micturition
CPT/HCPCS: 99214

== ENCOUNTER → 2025-04-22 07:47 | Outpatient (BNVA) | payer OTHER, SELFPAY | PROVIDERS: PCP Internal Medicine; Visit Provider Nurse Practitioner Family | DX: R35.0 Frequency of micturition (principal) | CPT/HCPCS: 51798 ==

== ENCOUNTER 2025-05-07 15:54 | Outpatient (REF) | payer OTHER, SELFPAY ==
--- OUTSIDE RECORDS SUMMARY | 2025-05-07 18:32 | XMS_ITS | Patient Health Record ---
Author Organization [facility] Address [address] [facility] [facility] [place] [address] Care Team Providers Care Title Checker Name Role Phone Itzel Carranza MD Primary Care Provider Unavail able marcelluswaliBarronamado Sam Unavailable [phone] Allergies No Known Allergies Reason For Referral [...] Insured Coverage Start Date Coverage End Date [facility] [address] [facility] [place] [address] [phone] [id number] Charlette Flores Self - patient is the insured Medical (General) History Medical History History ICD Code Anxiety chest pain Hyperlipidemia Fibromyalgia Reflux ( GERD) Hiatal hernia High blood pressure Insomnia osteoarthritis Incontinence Back,Hip,and Knee pain covid-19 Depression Headaches/Migraines Surgical History Surgery Date(Month/Year) bilateral tubal ligation (BTL) breast implant 2010 hysterectomy lumpectomy, right breast abdominoplasty 2006
--- OUTSIDE RECORDS SUMMARY | 2025-05-07 18:32 | XMS_ITS | Clinical Summary ---
Author Organization [employer] [facility] it Address [address] [place] [address] Care Team Providers Care Veterinary Epidemiologist Name Role Phone Itzel Cade MD Primary Care Provider [phone] Surgical History Surgery Date Site/Laterality Comments OTHER SURGICAL HISTORY PROCEDURE: IMPLANT BREAST SILICONE/EQ; COMMENT: 2010 TUBAL LIGATION PROCEDURE: HISTORICAL TUBAL LIGATION OTHER SURGICAL HISTORY PROCEDURE: HISTORICAL PANNICULECTOMY OTHER SURGICAL HISTORY 05/02/2014 PROCEDURE: HYSTEROSCOPY, DIAGNOSTIC; COMMENT: polypectomy - hyperplastic polyp BREAST BIOPSY PROCEDURE: BX BREAST; PERC NEEDLE CORE W/IMAG GUID; COMMENT: lt neg BREAST SURGERY PROCEDURE: ID UNLISTED PROCEDURE BREAST; COMMENT: 2010 silicone implants [...] 2014 Zoster Vaccines (1 of 2) 2014 Depression Screening 07/02/2024 COVID-19 Vaccine (3 - [...] age to complete this topic Care Teams Veterinary Epidemiologist Relationship Specialty Start Date End Date Itzel Cade MD [address] [place] [address] , [address] Physician Associ D/B/A: [facility] DENIS Mcmullen PCP - General Internal Medicine 01/25/21
== END 2025-05-07 15:55 | disposition home or self-care (01) ==
LOC: HO.MAMMO 15:54
PROVIDERS: PCP Internal Medicine; Visit Provider Internal Medicine
DX: Z12.31 Encounter for screening mammogram for malignant neoplasm of breast (principal)
CPT/HCPCS: 77063; 77067

== ENCOUNTER → 2025-05-07 16:30 | Outpatient (BNV) | payer OTHER, SELFPAY | PROVIDERS: PCP Internal Medicine; Visit Provider Internal Medicine | DX: Z12.31 Encounter for screening mammogram for malignant neoplasm of breast (principal) | CPT/HCPCS: 77063; 77067 ==